=== PATIENT | male | born 2000 | race Caucasian/White ===

== ENCOUNTER 2024-03-26 08:55 | Emergency (ER) | payer OTHER, SELFPAY ==
--- NOTE | 2024-03-26 09:14 | ED.URI ---
HPI - URI/Sore Throat General Chief Complaint: Upper Respiratory Infection Stated Complaint: body aches and throat soreness Time Seen by Provider: 03/26/24 09:07 Source: patient Mode of arrival: ambulatory Limitations: no limitations History of Present Illness HPI Narrative: Mac is a 23-year-old male patient presenting to the clinic today with complaints of sore throat, nasal congestion, and body aches x2 days. He reports no known fever or chills. Denies any chest pain or shortness of breath. is also sick with similar symptoms Related Data Home Medications ?Medication ?Instructions ?Recorded ?Confirmed ?Last Taken ?Type losartan 25 mg tablet mg 03/26/24 Unknown History sertraline 25 mg tablet mg 03/26/24 Unknown History Allergies Allergy/AdvReac Type Severity Reaction Status Date / Time amoxicillin Allergy Intermediate Hives Verified 03/26/24 09:27 Review of Systems Review of Systems: Pertinent positives per HPI. Patient denies any fever, chills, rash, headache, visual changes, dizziness, shortness of breath, chest pain, palpitations, nausea, vomiting, diarrhea, constipation, abdominal pain, or any urinary issues. PMFSH Comments At the time of my signature, I reviewed and agree with the nursing past medical, surgical, social, and family history. There is no relevant family history pertinent to the patient complaint. Exam Narrative: General: Well-developed, well nourished, in no apparent distress Head: Normocephalic, atraumatic Eyes: Pupils equally round and reactive to light bilaterally, EOM intact, sclera and conjunctive clear, no discharge, lids normal Ears: TMs intact and clear, ear canals clear, no drainage, grossly hearing normal. Nose: Nares patent, clear nasal discharge, no inflammation, no sinus tenderness. Mouth: Oropharynx mildly red without lesions or masses, good dentition, MMM. Neck: Supple, trachea midline, no enlargement of anterior or posterior cervical nodes, no thyroid masses or goiter palpable. Cardio: Regular rate and rhythm, s1 and s2 normal, no murmur appreciated. Resp: Clear to auscultation bilaterally anteriorly and posteriorly, no rhonchi, rales, wheezing or rubs Course Course Emergency Course: Portions of this record may have been created with voice recognition software. Level of Care: Express Care Visit Vital Signs Vital signs: Vital Signs Temperature 36.4 C L 03/26/24 09:17 Pulse Rate 72 03/26/24 09:17 Respiratory Rate 18 03/26/24 09:17 Blood Pressure 143/61 H 03/26/24 09:17 Pulse Oximetry 99 03/26/24 09:17 Oxygen Delivery Room Air 03/26/24 09:17 Temperature 36.4 C L 03/26/24 09:17 Pulse Rate 72 03/26/24 09:17 Respiratory Rate 18 03/26/24 09:17 Blood Pressure 143/61 H 03/26/24 09:17 Pulse Oximetry 99 03/26/24 09:17 Oxygen Delivery Room Air 03/26/24 09:17 Vital signs reviewed MDM - URI/Sore Throat MDM Narrative Medical decision making narrative: At the time of visit patient is resting comfortably on the exam table. Patient appears to be nontoxic. Labs: COVID, influenza, and strep test were all performed. All testing was negative. We will send strep for culture. Plan: I suspect patient has URI/pharyngitis/viral syndrome. Supportive measures were discussed with the patient and they voiced understanding discharge instructions and agrees to treatment plan. Return precautions reviewed Differential Diagnosis Differential diagnosis: Likely upper respiratory infection, croup, otitis media, sinusitis, viral infection, bronchitis, influenza and pharyngitis Lab Data Labs: Lab Results 03/26/24 Range/Units 09:33 POC Grp A Strep Screen Negative (Negative) Discharge Plan Discharge Clinical Impression: Viral infection Upper respiratory infection Qualifiers: URI type: unspecified URI Qualified Code(s): J06.9 - Acute upper respiratory infection, unspecified Pharyngitis Qualifiers: Pharyngitis/tonsillitis etiology: unspecified etiology Qualified Code(s): J02.9 - Acute pharyngitis, unspecified Patient Disposition: Home, Self-Care Condition: Stable Instructions: Antibiotic Form, Pharyngitis (ED), Viral Syndrome (ED), Cold Symptoms (ED) Additional Instructions: COVID, influenza, and strep test were all negative in the clinic today. We will send strep for culture if this comes back positive we will contact you in place you on antibiotics at that time. May take DayQuil/NyQuil for cold/flu symptoms Increase fluids and stay well hydrated Tylenol/motrin for pain/fever Flonase and OTC antihistamines as directed Vicks vapor rub to open sinuses Sinus rinses for congestion Cepacol spray, cough drops, throat lozenges, warm tea with honey/lemon, gargle salt water to soothe throat BRAT diet for diarrhea Clear liquids x 24 hours then advance as tolerated for nausea/vomiting Go to the ED if you develop a worsening in your condition- high fever not controlled by Tylenol or Motrin, dehydration, weakness, lethargy, shortness of breath, or chest pain. Follow up with your PCP in 3-5 days if symptoms persist. Patient Language: Persian Prescriptions: No Action losartan 25 mg tablet sertraline 25 mg tablet Follow-up/Referrals: Fredrick,Stacey Acuna APRN [Primary Care Provider] - Time of Disposition: 09:43 Quality NIHSS Nursing Documentation ED NIHSS nursing documentation: reviewed/agree
[2024-03-26 09:17] VITALS: BP 143/61; PULSE 72; RESP 18; TEMP 36.4; O2SAT 99
[2024-03-26 09:35] LABS: EDSTREPNEGPOS1 Negative (Negative)
[2024-03-26 09:42] LABS: EDCOVIDSCREEN Negative (Negative); EDINFLUASCREEN Negative (Negative); EDINFLUBSCREEN Negative (Negative)
--- OUTSIDE RECORDS SUMMARY | 2024-04-02 19:20 | XMS_ITS | Continuity of Care Document ---
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 It does not include entries that were removed or entered in error. Problem Status Onset Date Problem Type Date of Resolution Comments Source Acute nasopharyngitis [common cold] Inactive 09/30/2020 Condition DoD Encounter for examination and observation for other specified reasons Inactive 09/30/2020 Condition DoD Other and unspecified noninfective gastroenteritis and colitis Inactive 08/08/2020 Condition DoD Encounter for other administrative examinations Active 08/08/2020 Condition DoD Anxiety Active 10/22/2013 Condition 0128C-[facility]ND [facility] Elevated blood-pressure reading without diagnosis of hypertension Active 10/22/2013 Condition 0128C-[facility]ND [facility] Constipation Active Condition 0128C-92N D [facility] Lumbar strain Active Condition 0128C-92 ND [facility] Urethral spasm Active Condition 0128C-9 2ND [facility] Medications Combined list of outpatient medications from Department of Defense and Veterans Affairs facilities.Medications provided include 1) outpatient medications from the last 15 months, and 2) patient-reported medications. 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., Route to [facility] Discont inued 01/09/2021 8.1 0128C-9 2ND [facility] azithromyci n 500 mg oral tablet 4 tab(s), Oral, Once, # 4 tab(s), 0 total refill(s ), Physicia n Stop, 10/01/22 1:40:46 PM CDT, 4 tab(s) Oral Once, Pharmacy : [facility] Oral (given by mouth) Complet ed 10/01/2022 4.0 0128C-9 2ND [facility] cetirizine 10 mg tablet See Rx Instruct ions, Oral, # 30 EA, 0 total refill(s ), Hard Stop Oral (given by mouth) Complet ed 09/08/2022 30.0 Ambulat ory Pharmac y Chlorasepti c Max 15-10 mg throat lozenge [15EA] See Rx Instruct ions, # 16 EA, 0 total refill(s ), Hard Stop Complet ed 09/08/2022 16.0 Ambulat ory Pharmac y Cipro 500 mg oral tablet 1 tab(s), Oral, BID, X 30 days, # 60 tab(s), 0 total refill(s ), Acute, 04/13/20 10:51:00 AM [employer], Route to [facility] Oral (given by mouth) Complet ed 04/13/2020 60.0 0128C-9 2ND [facility] Colace 100 mg oral capsule 1 cap(s), Oral, BID, PRN constipa tion, # 100 cap(s), 1 total refill(s ), Maintena nce, 1 cap(s) Oral BID,PRN: constipa tion, Pharmacy : [facility] Oral (given by mouth) Ordered 100.0 0128C-9 2ND [facility] diazePAM 10 mg auto injector 10 mg, IntraMus cular, As Directed , 10 mg, IntraMus cular, As Directed , Administ er autoinje ctor IM as directed by thedenise wilder, # 1 EA, 0 total refill(s ), Maintena nce, Route to [facility] IntraM uscula r (in a muscle ) Discont inued 01/09/2021 1.0 0128C-9 2ND [facility] doxycycline hyclate 100 mg oral capsule 1 cap(s), Oral, BID, For treatmen t of suspecte d chlamydi a infectio n., X 7 days, # 14 cap(s), 0 total refill(s ), Acute, 10/01/22 2:44:00 PM CDT, 1 cap(s) Oral BID,x7 days,Ins tr:For treatmen t of suspecte d chlamydi a infectio n., Pharmacy : [facility] Oral (given by mouth) Discont inued 10/01/2022 14.0 0128C-9 2ND [facility] fluticasone 50 mcg/inh nasal spray [16g] See Rx Instruct ions, Nostril- Both, # 16 g, 0 total refill(s ), Hard Stop Nostri l-Both (into the nose) Complet ed 09/08/2022 16.0 Ambulat ory Pharmac y gentamicin 40 mg/mL injectable solution See Instruct ions, 240 mg IntraMus cular once. RN to administ er, # 6 mL, 0 total refill(s ), Acute, 10/01/22 2:44:00 PM CDT, For in-clini c RN administ ration. Expedite ., 240 mg IntraMus cular once. RN to administ er, Pharmacy : [facility] Discont inued 10/01/2022 6.0 0128C-9 2ND [facility] levoFLOXaci n 500 mg oral tablet 1 tab(s), Oral, every 24 hr, X 10 days, # 10 tab(s), 0 total refill(s ), Acute, 10/11/22 2:45:00 PM CDT, 1 tab(s) Oral every 24 hr,x10 days, Pharmacy : [facility] Oral (given by mouth) Complet ed 10/11/2022 10.0 0128C-9 2ND [facility] lidocaine 5% topical film 1 patch(es ), Topical, Daily, Leave on for up to 12 hours within a 24 hour period (12 hours on, 12 hours off), # 30 patch(es ), 3 total refill(s ), Maintena nce, 1 patch(es ) Topical Daily,In str:Leav e on for up to 12 hours within a 24 hour period (12 hours on, 12 hours off), Pharmacy : [facility] Topica l (on the skin) Discont inued 05/27/2022 30.0 0128C-9 2ND [facility] MiraLax oral powder for reconstitut ion See Instruct ions, Dissolve and drink 1 capful (17g) of powder in 4 to 8 ounces of liquid three times daily until complete bowel emptying occurs, then use as needed for constipa tion., # 510 g, 5 total refill(s ), Maintena nce, Dissolve and drink 1 capful (17g) of powder in 4 to 8 ounces of liquid three times daily until complete bowel emptying occurs, then use as needed for constipa tion., Pharmacy : [facility] Ordered 510.0 0128C-9 2ND [facility] Mucinex ER 600 mg/12 hour tablet See Rx Instruct ions, Oral, # 20 EA, 0 total refill(s ), Hard Stop Oral (given by mouth) Complet ed 09/08/2022 20.0 Ambulat ory Pharmac y naproxen 250 mg oral tablet 2 tab(s), Oral, BID, PRN fever/mi ld pain, X 7 days, # 14 tab(s), 0 total refill(s ), Acute, 10/08/22 1:19:00 PM CDT, 2 tab(s) Oral BID,x7 days,PRN :fever/m ild pain, Pharmacy : [facility] Oral (given by mouth) Complet ed 10/08/2022 14.0 0128C-9 2ND [facility] potassium iodide 130 mg oral tablet 1 tab(s), Oral, Daily, PRN while protecti on is needed, To take only at the discreti on of the theater commande r., X 14 days, # 14 tab(s), 0 total refill(s ), Acute, [facility] Oral (given by mouth) Complet ed 03/28/2020 14.0 0128C-9 2ND [facility] pseudoephed rine 30 mg tablet See Rx Instruct ions, Oral, # 24 EA, 0 total refill(s ), Hard Stop Oral (given by mouth) Complet ed 09/08/2022 24.0 Ambulat ory Pharmac y pyridostigm ine bromide 30 mg tab See Instruct ions, Take as directed under the directio n of the fabian wilder, # 42 EA, 0 total refill(s ), Maintena nce, [facility] Discont inued 01/09/2021 42.0 0128C-9 2ND [facility] Robaxin 500 mg oral tablet 2 tab(s), Oral, QID, X 7 days, # 56 tab(s), 0 total refill(s ), Acute, 2 tab(s) Oral QID,x7 days, Pharmacy : [facility] Oral (given by mouth) Complet ed 04/09/2022 56.0 0128C-9 2ND [facility] Allergies, Adverse Reactions, Alerts Combined list of allergies from Department of Defense and Veterans Affairs facilities. It does not include entries that were removed or entered in error. Substance Category Reaction Severity Reaction type Status Date Reported Comments Source amoxicillin Drug allergy hives Mild Active 0 0128C-[facility]ND [facility] AMOXICILLIN Drug allergy (disorder) active 0 [employer] [place] [place] Immunizations Combined list of available immunizations from the Department of Defense and Veterans Affairs facilities. 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 Status Comments Source COVID Vaccine Pfizer 2020 REFUGIO Bettencourt sharon, right (delt oid) [id number] PFIZER complet ed COVID Vaccine Pfizer 12/30/20 Given 0128C-9 2ND [facility] influenza virus vaccine, inactivated 2020 KARELY [place] sharon, left (delt oid) [id number] 141 [facility] complet [facility] influenza virus vaccine, inactivat ed 12/09/20 Given 0128C-9 2ND [facility] COVID Vaccine Pfizer 2020 KARELY [place] sharon, right (delt oid) [id number] PFIZER complet ed COVID Vaccine Pfizer 12/09/20 Given 0128C-9 2ND [facility] typhoid vaccine, parenteral 2019 BRJOSE LUISPLSHRUTHI [place] sharon, right (delt oid) [id number] sanofi pasteur complet ed typhoid vaccine, parentera l 03/14/20 Given 0128C-9 2ND [facility] anthrax vaccine 2019 BRIANTAIWO [place]court sharon, left (delt oid) [id number] 24 [employer] complet ed anthrax vaccine 03/14/20 Given 0128C-9 2ND [facility] influenza virus vaccine, inactivated 2019 KYLEMYUMIKO [place] sharon, right (delt oid) [id number] 141 [employer] complet ed influenza virus vaccine, inactivat ed 02/14/20 Given 0128C-9 2ND [facility] human papillomaviru s vaccine [address] [place] sharon, left (delt oid) [id number] 165 [employer] Inc complet ed human papilloma virus vaccine 02/14/20 Given 0128C-9 2ND [facility] human papillomaviru s vaccine [address] sharon, left (delt oid) [id number] 165 [employer] complet ed human papilloma virus vaccine 10/04/19 Given 0128C-9 2ND [facility] human papillomaviru s vaccine 2019 KARELY [place]court sharon, left (delt oid) [id number] 165 [employer] complet ed human papilloma virus vaccine 07/19/19 Given 0128C-9 2ND [facility] hepatitis A-hepatitis B vaccine 2019 BRIANPLSHRUTHI [place] sharon, left (delt oid) [id number] 104 [employer] complet ed hepatitis A-hepatit is B vaccine 07/19/19 Given 0128C-9 2ND [facility] influenza, injectable, quadrivalent- pf 2018 [id number] 150 [employer] complet ed influenza , injectabl e, quadrival ent-pf 01/22/19 Given 0128C-9 2ND [facility] hepatitis A-hepatitis B vaccine 2018 [id number] 104 GlaxoSmithKli ne complet ed hepatitis A-hepatit is B vaccine 01/22/19 Given 0128C-9 2ND [facility] hepatitis A-hepatitis B vaccine 2018 [id number] 104 GlaxoSmithKli ne complet ed hepatitis A-hepatit is B vaccine 12/06/18 Given 0128C-9 2ND [facility] adenovirus vaccine, live 2018 [id number] 143 [employer]eva [employer] ls complet ed adenoviru s vaccine, live 12/01/18 Given 0128C-9 2ND [facility] tetanus, diphtheria, acellular pertu is 2018 [id number] 115 GlaxoSmithKli ne complet ed tetanus, diphtheri a, acellular pertussis 12/01/18 Given 0128C-9 2ND [facility] meningococcal A,C,Y,W-135 (MCV4P) 2018 [id number] 114 sanofi pasteur complet ed meningoco ccal A,C,Y,W-1 35 (MCV4P) 12/01/18 Given 0128C-9 2ND [facility] poliovirus vaccine, inactivated 2018 [id number] sanofi pasteur complet ed polioviru s vaccine, inactivat ed 12/01/18 Given 0128C-9 2ND [facility] Results Combined list of recent chemistry, hematology and other laboratory results from Department of Defense and Veterans Affairs, ranging from 15 months to all on record, depending upon the facility. Order Name Results Value Reference Range Date Interpretation Specimen Comments Source Urinalysi s UA WBC 0-1 10/01 0128C-9 2ND [facility] Urinalysi s UA RBC 0-1 10/01 0128C-9 2ND [facility] Urinalysi s UA Bacteria Trace *ABN* (10/01/22 12:15 PM) 10/01 A 0128C-9 2ND [facility] Urinalysi s UA Mucous Neg (10/01/22 12:15 PM) 10/01 N 0128C-9 2ND [facility] Infectiou s Disease GC Scrn Not Detected (10/01/22 12:15 PM) 10/01 N 0128C-9 2ND [facility] Infectiou s Disease Chlamydia Scrn Not Detected (10/01/22 12:15 PM) 10/01 N 0128C-9 2ND [facility] Urinalysi s UA Clarity Clear (10/01/22 12:15 PM) 10/01 N 0128C-9 2ND [facility] Urinalysi s UA Appear Clear (10/01/22 12:15 PM) 10/01 N 0128C-9 2ND [facility] Urinalysi s UA Bili Negative (10/01/22 12:15 PM) 10/01 N 0128C-9 2ND [facility] Urinalysi s UA Blood Trace-In tact *ABN* (10/01/22 12:15 PM) 10/01 A 0128C-9 2ND [facility] Urinalysi s UA Color Yellow (10/01/22 12:15 PM) 10/01 N 0128C-9 2ND [facility] Urinalysi s UA Glucose Negative mg/dL 10/01 N 0128C-9 2ND MED [facility] Urinalysi s UA Ketones Negative mg/dL 10/01 N 0128C-9 2ND [facility] Urinalysi s UA Leuk Esterase Negative (10/01/22 12:15 PM) 10/01 N 0128C-9 2ND [facility] Urinalysi s UA Nitrite Negative (10/01/22 12:15 PM) 10/01 N 0128C-9 2ND [facility] Urinalysi s UA pH 6.5 4.6 - 8.0 10/01 N 0128C-9 2ND [facility] Urinalysi s UA Protein Negative mg/dL 10/01 N 0128C-9 2ND [facility] Urinalysi s UA Spec Dougherty 1.010 1.006 - 1.029 10/01 N 0128C-9 2ND MED [facility] Urinalysi s UA Urobilinoge n 0.2 E.U./dL 10/01 N 0128C-9 2ND MED [facility] Urinalysi s UA Micro Ind? Indicate d *ABN* (10/01/22 12:15 PM) 10/01 A 0128C-9 2ND MED [facility] Urinalysi s UA WBC 0-1 (09/17/22 2:04 PM) 09/17 N 0128C-9 2ND [facility] Urinalysi s UA RBC 0-1 09/17 0128C-9 2ND MED [facility] Urinalysi s UA Bacteria Neg (09/17/22 2:04 PM) 09/17 N 0128C-9 2ND MED [facility] Urinalysi s UA Mucous Neg (09/17/22 2:04 PM) 09/17 N 0128C-9 2ND MED [facility] Urinalysi s UA Clarity Clear (09/17/22 2:04 PM) 09/17 N 0128C-9 2ND MED [facility] Urinalysi s UA Appear Clear (09/17/22 2:04 PM) 09/17 N 0128C-9 2ND [facility] Urinalysi s UA Bili Negative (09/17/22 2:04 PM) 09/17 N 0128C-9 2ND [facility] Urinalysi s UA Blood Trace-Ly sed *ABN* (09/17/22 2:04 PM) 09/17 A 0128C-9 2ND [facility] Urinalysi s UA Color Yellow (09/17/22 2:04 PM) 09/17 N 0128C-9 2ND [facility] Urinalysi s UA Glucose Negative mg/dL 09/17 N 0128C-9 2ND MED [facility] Urinalysi s UA Ketones 15 mg/dL 09/17 A 0128C-[address] [place] [address] [facility] Urinalysi s UA Leuk Esterase Negative (09/17/22 2:04 PM) 09/17 N 0128C-[address] [place] [address] [facility] Urinalysi s UA Nitrite Negative (09/17/22 2:04 PM) 09/17 N 0128C-[address] [place] [address] [facility] Urinalysi s UA pH 7.0 4.6 - 8.0 09/17 N 0128C-[address] [place] [address] [facility] Urinalysi s UA Protein Negative mg/dL 09/17 N 0128C-[address] [place] [address] [facility] Urinalysi s UA Spec Dougherty 1.015 1.006 - 1.029 09/17 N 0128C-[address] [place] [address] [facility] Urinalysi s UA Urobilinoge n 0.2 E.U./dL 09/17 N 0128C-[address] [place] [address] [facility] Urinalysi s UA Micro Ind? Indicate d *ABN* (09/17/22 2:04 PM) 09/17 A 0128C-[address] [place] [address] [facility] Infectiou s Disease HIV-1/O/2.E PI NON-REAC TIVE 04/06 Result Comment: INTERPRETAT ION(S): This method is a screening procedure for the detection of HIV p24 Antigen and Antibodies to HIV-1, including Group O, and/or HIV-2. NON-REACTIV E: HIV-1 antigen and HIV-1 / HIV-2 antibodies were not detected. No laboratory evidence of HIV infection. A negative test result does not exclude the possibility of exposure to or infection with HIV. HIV antibodies and/or p24 antigen may be undetectabl e in some stages of the infection and in some clinical conditions. If acute HIV infection is suspected, consider submitting another specimen to a reference laboratory for HIV-1 RNA. SCREEN REACTIVE - CONFIRMATIO N TO FOLLOW: Possible presence of HIV-1 antibodies, HIV-2 antibodies and/or HIV-1 p24 antigen. Specimen will reflex to the confirmatio n testing that fulfills the Center for Disease Control and Prevention' s HIV diagnostic algorithm. Refer to [facility] Lab Guide for additional information : [email or web address]/ [email or web address]/EPIL [email or web address] [email or web address] x Testing performed by [facility] jasper vasquez. Performed by: Epidemiolog y Laboratory Service [employer] [facility] [address] [place] [address], [place] [address] 0128C-[address] [place] [address] [facility] Miscellan eous Sendouts Repository Sample.EPI RECEIVED 04/06 Result Comment: INTERPRETAT ION(S): Performed by: Epidemiolog y Laboratory Service [facility] [address] [place] [address], [place] [address] 0128C-[address] [place] [address] [facility] Infectiou s Disease Strep A, Rapid Neg (02/25/22 3:14 PM) 02/25 N 0128C-[address] [place] [address] [facility] Molecular Infectiou s Disease SARS-CoV-2 PCR Negative 6 (12/08/20 10:46 AM) 12/08 N Interpretiv e Data: This test is not yet approved or cleared by the [place] FDA. When there are no FDA-approve d or cleared tests available, and other criteria are met, FDA can make tests available under an emergency access mechanism called an Emergency Use Authorizati on (EUA). The EUA for this test is supported by the Loom Setter Fourdrinier of Health and Human Service s (HHS s ) declaration that circumstanc es exist to justify the emergency use of in vitro diagnostics for the detection and/or diagnosis of the virus that causes COVID-19. This EUA will remain in effect (meaning this test can be used) for the duration of the COVID-19 declaration justifying emergency of IVDs, unless it is terminated or revoked by FDA (after which the test may no longer be used). 0128C-9 2ND MED [facility] Molecular Infectiou s Disease Reason for Test? Screenin g (12/08/20 10:46 AM) 12/08 N 0128C-[address] [place] [address] GRP-ALYSIA RCHILD Miscellan eous Sendouts Repository Sample.EPI RECEIVED 12/08 Result Comment: INTERPRETAT ION(S): Performed by: Epidemiolog y Laboratory Service [facility] [address] [place] [address], [place] [address] 0128C-9 2ND [facility] GRP-ALYSIA RCHILD Molecular Infectiou s Disease Reason for Test? Diagnosi s (05/19/20 8:12 AM) 05/19 N -[address] [place] [address] GRP-[facility] Molecular Infectiou s Disease SARS-CoV-2 PCR Negative 7 (05/19/20 8:12 AM) 05/19 N Interpretiv e Data: This test is not yet approved or cleared by the [place] FDA. When there are no FDA-approve d or cleared tests available, and other criteria are met, FDA can make tests available under an emergency access mechanism called an Emergency Use Authorizati on (EUA). The EUA for this test is supported by the [employer]ier of Health and Human Service s (HHS s ) declaration that circumstanc es exist to justify the emergency use of in vitro diagnostics for the detection and/or diagnosis of the virus that causes COVID-19. This EUA will remain in effect (meaning this test can be used) for the duration of the COVID-19 declaration justifying emergency of IVDs, unless it is terminated or revoked by FDA (after which the test may no longer be used). 0128C-9 2ND [facility] GRP-ALYSIA RCHILD Infectiou s Disease HIV-1/O/2.E PI NON-REAC TIVE 03/14 Result Comment: INTERPRETAT ION(S): This method is a screening procedure for the detection of HIV p24 Antigen and Antibodies to HIV-1, including Group O, and/or HIV-2. NON-REACTIV E: HIV-1 antigen and HIV-1 / HIV-2 antibodies were not detected. No laboratory evidence of HIV infection. A negative test results does not exclude the possibility of exposure to or infection with HIV. HIV antibodies and/or p24 antigen may be undetectabl e in some stages of the infection and in some clinical conditions. If acute HIV infection is suspected, consider submitting another specimen to a reference laboratory for HIV-1 RNA. SCREEN REACTIVE - CONFIRMATIO N TO FOLLOW: Possible presence of HIV-1 antibodies, HIV-2 antibodies and/or HIV-1 p24 antigen. Specimen will reflex to the confirmatio n testing that fulfills the Center for Disease Control and Prevention' s HIV diagnostic algorithm. Refer to [facility] Lab Guide for additional information : [email or web address] [email or web address]/lab _[email or web address] Testing performed by Nova vasquez. Performed by: Epidemiolog y Laboratory Service [facility] [address] [place] [address], [place] [address] 0128C-9 2ND [facility] GRP-ALYSIA RCHILD Miscellsamir eous Sendouts Repository Sample.EPI RECEIVED 03/14 Result Comment: INTERPRETAT ION(S): Performed by: Epidemiolog y Laboratory Service [facility] [address] [place] [address], [place] [address] 0128C-9 2ND MED [facility] Vital Signs Combined list of inpatient and outpatient Vital Signs from Department of Defense and Veterans Affairs, ranging from 12 months to all on record, depending upon the facility. Vital Sign Value Date Comments Source Systolic Blood Pressure 138mm[Hg] 03/14/2020 16:52:00 0128C-92ND [facility] Diastolic Blood Pressure 85mm[Hg] 03/14/2020 16:52:00 0128C-92ND [facility] Mean Arterial Pressure, Calc 103mm[Hg] 03/14/2020 16:52:00 0128C-92ND M [facility] Peripheral Pulse Rate 84bpm 03/14/2020 16:52:00 0128C-92ND MED [facility] Respiratory Rate 16br/min 03/14/2020 16:52:00 0128C-92ND [facility] Systolic Blood Pressure 119mm[Hg] 09/17/2022 20:13:00 0128C-92ND [facility] Diastolic Blood Pressure 75mm[Hg] 09/17/2022 20:13:00 0128C-92ND [facility] Mean Arterial Pressure, Calc 90mm[Hg] 09/17/2022 20:13:00 0128C-92ND M ED [facility] Peripheral Pulse Rate 84bpm 09/17/2022 20:13:00 0128C-92ND [facility] Respiratory Rate 17br/min 09/17/2022 20:13:00 0128C-92ND [facility] Temperature Oral 37Cel 09/17/2022 20:13:00 0128C-92ND MED [facility] BP Site 09/17/2022 20:13:00 0128C -92ND [facility] Blood Pressure Manual 09/17/2022 20:13:00 0128C-92ND [facility] Systolic Blood Pressure 128mm[Hg] 04/02/2022 22:00:00 0128C-92ND [facility] Diastolic Blood Pressure 86mm[Hg] 04/02/2022 22:00:00 0128C-92ND [facility] Mean Arterial Pressure, Calc 100mm[Hg] 04/02/2022 22:00:00 0128C-92ND M ED [facility] Peripheral Pulse Rate 82bpm 04/02/2022 22:00:00 0128C-92ND [facility] Respiratory Rate 16br/min 04/02/2022 22:00:00 0128C-92ND MED [facility] BP Site 04/02/2022 22:00:00 0128C -92ND [facility] Blood Pressure Manual 04/02/2022 22:00:00 0128C-92ND [facility] BP Site 09/14/2022 21:46:00 0128C -92ND [facility] Blood Pressure Manual 09/14/2022 21:46:00 0128C-92ND [facility] Systolic Blood Pressure 131mm[Hg] 09/14/2022 21:46:00 0128C-92ND [facility] Diastolic Blood Pressure 87mm[Hg] 09/14/2022 21:46:00 0128C-92ND [facility] Mean Arterial Pressure, Calc 102mm[Hg] 09/14/2022 21:46:00 0128C-92ND M ED [facility] Peripheral Pulse Rate 87bpm 09/14/2022 21:46:00 0128C-92ND [facility] Respiratory Rate 14br/min 09/14/2022 21:46:00 0128C-92ND MED [facility] Temperature Oral 36.8Cel 09/14/2022 21:46:00 0128C-92ND [facility] Peripheral Pulse Rate 72bpm 02/25/2022 22:00:00 0128C-92ND MED [facility] Systolic Blood Pressure 132mm[Hg] 02/25/2022 22:00:00 0128C-92ND [facility] Diastolic Blood Pressure 87mm[Hg] 02/25/2022 22:00:00 0128C-92ND MED [facility] Temperature Oral 37Cel 02/25/2022 22:00:00 0128C-92ND MED [facility] Mean Arterial Pressure, Calc 102mm[Hg] 02/25/2022 22:00:00 0128C-92ND M ED GRP-[facility] Systolic Blood Pressure 133mm[Hg] 10/01/2022 17:44:00 0128C-92ND MED [facility] Diastolic Blood Pressure 89mm[Hg] 10/01/2022 17:44:00 0128C-92ND MED [facility] Mean Arterial Pressure, Calc 104mm[Hg] 10/01/2022 17:44:00 0128C-92ND M ED [facility] Peripheral Pulse Rate 86bpm 10/01/2022 17:44:00 0128C-92ND MED [facility] Encounters Combined list of: 1) Encounters from Department of Veterans Affairs facilities going back up to thelast 18 months. 2) Encounters from the Department of Defense facilities going back up to 280 months. Location Location Details Encounter Type Encounter Number Reason For Visit Attending Provider ADM Date DC Date Status Disposition Source [facility] [place] [address](Hea ring Conservat ion, BMT) OUTPATIENT [id number] KAMILLA PINO 12/05 Released w/o Limitations [facility] [place] [address](H earing Conserv ation, BMT) [facility]UTIST[facility] [place] [address]([facility]) OUTPATIENT [id number] Notes Entered by: MIL PARK 06 Dec 2018 1159 ------- ------- ------- ------- -- Strep Prophyl axis, BOB PARK 12/06 Released w/o Limitations [facility] [place] [address]([facility] d) Theater Facility OUTPATIENT [id number] Theater Provider 08/08 Immediate Referral Theater Facilit [facility] Theater Facility OUTPATIENT [id number] Theater Provider 08/08 Released w/o Limitations Theater Facilit [facility] Theater Facility OUTPATIENT [id number] Theater Provider 08/27 Released w/o Limitations Theater Fac[facility] y Theater Facility OUTPATIENT [id number] Theater Provider 09/30 Sick at Home/Quarter s Theater Facilit y Theater Facility OUTPATIENT [id number] Theater Provider 09/30 Released w/o Limitations Theater Facilit y Procedures Combined list of: 1) Procedures from Department of Veterans Affairs facilities going back up to thelast 18 months, not all VA non-surgical procedures are included; 2) All procedures from the Department of Defense facilities. Procedure Procedure Type Code Date Perfomer Comments Sourc e No data available for this section MED GRP-[employer] ILD Threshold Audiogram (Pure Tone) Threshold Audiogram (Pure Tone) [address]01 KAMILLA PINO [facility] Physician Supervised Injection Intramuscular Antibiotic Physician Supervised Injection Intramuscular Antibiotic 51740 BOB PARK [facility] THERAPEUTIC, PROPHYLACTIC, OR DIAGNOSTIC INJECTION (SPECIFY SUBSTANCE OR DRUG); SUBCUTANEOUS OR INTRAMUSCULAR [facility] PURE TONE AUDIOMETRY (THRESHOLD); AIR ONLY 9 [facility] Social History Combined list of available smoking, tobacco, and other social history from Department of Defense and Veterans Affairs facilities. Social History Type Response Date Comment Sourc e Smoking Status Never (less than 100 in lifetime) 11/15/2019- MED [facility] Male 05/15/2019 [facility] Sexual Orientation 8ND [facility] Gender identity 0128C-92N D [facility] This section is an empty social history section. [facility] Assessment and Plan Combined list of future care activities from Department of Defense and Veterans Affairs facilities (e.g., assessment and plan notes, appointments, orders, and referrals). Additional future care activities may be listed in the Plan of Care section. Result Assessment and Plan Date Source Assessment and Plan Extracted from:Title : Office Clinic Note- Chronic constipation; epididymitis (acute) Author: STEVIE FLETCHER Date: 10/01/22 1.?Constipation Chronic, uncontrolled despite bowel regimen. Will refer to GI for further eval/treatment. Ordered: doxycycline(doxycycline hyclate 100 mg oral capsule), 1 cap(s), Oral, BID, For treatment of suspected chlamydia infection., X 7 days, # 14 cap(s), 0 total refill(s), Acute, 10/08/2022, 1 cap(s) Oral BID,x7 days,Instr:For treatment of suspected chlamydia infection., Pharmacy: [facility] [Not fille GC and Chlamydia Screen Urinalysis with Culture if Indicated Referral Request 2.0 ? 2.?Epididymitis Acute, uncontrolled.?Unclear if related to his constipation, that would be rather unusual and suggest more significant GI pathology than suspected. Repeat UA/UCx and will also test for GC/CT. Empiric treatment w/NSAIDs, abx ordered today. 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 As such I am hesitant to administer cephalosporin based regimen. Unfortunately our clinic does not stock gentamicin for alternative treatment.?Given patient is adamant no sex outside of monogamous relationship, STI risk is likely low despite high STI prevalence in his demographic category. As such, we will lean more towards empiric coverage of enteric pathogens w/levofloxacin. If GC/CT results come back positive we will have to change therapy. ED precautions for worsening sx over the upcoming weekend discussed. Ordered: GC and Chlamydia Screen Urinalysis with Culture if Indicated ? Orders: naproxen(naproxen 250 mg oral tablet), 2 tab(s), Oral, BID, PRN fever/mild pain, X 7 days, # 14 tab(s), 0 total refill(s), Acute, 10/08/2022, 2 tab(s) Oral BID,x7 days,PRN:fever/mild pain, [facility] [Not filled] A total of?approximately 45?minutes were spent related to this encounter on day of service including medical history and record review; ordering of medications, tests, and procedures; face to face time in communication and counseling with patient, family and/or caregivers; and documentation in the electronic health record and other records as applicable. ? //SIGNED// Stevie Fletcher MD, IMAN, [facility] Family Medicine Physician Juice Tester, [facility], [address] [place], [place] [phone] ? Extracted from:Title: Office Clinic Note- Constipation Author: STEVIE FLETCHER Date: 09/17/22 1.?Constipation Chronic, new diagnosis, uncontrolled. He has a non-focal, unremarkable abdominal exam. ?We will initiate a miralax bowel clean-out regimen- TID dosing until bowels fully evacuated, then continue PRN for maintenance. Rx for Colace prescribed as well. ? We discussed the need, long-term, for adequate fluid intake and increased fiber intake- ideally through increased fiber in diet (whole grains, fruits, veggies) but OK to use a daily powdered fiber supplement as well. ? He is not in acute pain and the character of the pain is not suggestive of nephrolithiasis but we will obtain UA to ensure no hematuria is present that would suggest pathology. ? ? ? Ordered: docusate(Colace 100 mg oral capsule), 1 cap(s), Oral, BID, PRN constipation, # 100 cap(s), 1 total refill(s), Maintenance, 1 cap(s) Oral BID,PRN:constipation, Pharmacy: [facility] polyethylene glycol 3350(MiraLax oral powder for reconstitution), See Instructions, Dissolve and drink 1 capful (17g) of powder in 4 to 8 ounces of liquid three times daily until complete bowel emptying occurs, then use as needed for constipation., # 510 g, 5 total refill(s), Maintenance, Dissolve and drink 1 capful... Urinalysis with Culture if Indicated ? Not on PRP or flying status. No indication for new or modified FR/DR/MR at this time.? ? ? Return precautions discussed. Patient expressed understanding and intent to comply. All questions answered. Patient agreed to notification regarding results of labs, imaging, other diagnostic testing via the [facility] [employer] Patient Portal. ? ? //SIGNED// Stevie Fletcher MD, IMAN, [employer] Family Medicine Physician Juice Tester, [facility], [address] [place], [place] [phone] ? Extracted from:Title: SHPE/MHA Author: LEXUS HAIDER PA Date: 09/14/22 1.?Encounter for other specified special examinations -?No depression, anxiety, SI, HI, substance abuse, or concerns. - Reviewed SHPE with patient, all health issues discussed, no concerning issues at this time which would require immediate attention or prevent member from separation? - Member clear for separation from primary care standpoint? -? ? ?[facility] Form completed ? - F/u PRN? 2.?Encounter for other general examination Reviewed [facility] section and reviewed responses and new questions asked without need for immediate referral or direction to ED. ?No new specific concerns identified in past medical or family history when compared to the PHAQ. ?All information was updated?in MHA?as needed.? Completed provider portion of the A, any abnormalities were noted in the Provider Comments" section below.??Member is not on PRP or Flying status. ?No indication for new or modified DR/MR/FR at this time.? ? ? Verified full name and prior to discussion of pt information? ? Confirmed Member is not Fly, PRP, or other specified Special duty ? ? FITNESS RESTRICTIONS:?[X]?None;?[ ]?A 469 has been created with new fitness restrictions;?[ ]? An existing 469 with fitness restrictions has been reviewed and will remain in effect? ? DUTY RESTRICTIONS:? ?[X]? None, fully qualified in AFMD;?[ ]? A 469 has been created with new duty restrictions;?[ ]? An existing 469 with duty restrictions has been reviewed and will remain in effect? ? MOBILITY RESTRICTIONS:? ?[X]? None;?[ ]? A 469 has been created with new mobility restrictions;?[ ]? An existing 469 with mobility restrictions has been reviewed and will remain in effect;??[ ]? Member advised to complete due/overdue IMR item(s) ? RETENTION STANDARDS:? ?[X]? None;?[ ]? Code 31 (Illness or injury expected to be resolved within 31-365 days);?[ ]? Referred to [facility], for potential Code 37 and medical defect/condition requiring IRILO or MEB, IAW MARIA GUADALUPE 48-198)?[ ]? Code 81 ; Discussed this with patient who indicated understanding ? DO NOT ARM NOTIFICATION: (Applicable to [employer], when a medication or medical condition could impair their ability to carry/use a weapon)? ?[X]? None;?[ ]? A Do Not Arm Notification was made via phone call to the [employer] ([phone]) and the Arming Use of Force (AUoF) module in [facility] was completed, and a duty restriction was issued via an AF form 468, with the statement Do Not Arm in the comments section Total time spent from by Provider on floor/phone time, record review, PE, and education and plan: ? 30min ? CAPT LEXUS HAIDER PA-C [facility] PCM [id number] [employer], [place] ? 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 Patient scheduled with PCM on September 17 @ 1340. -Red flags signs and symptoms discussed to seek emergency care to include severe pain, vomiting blood, or? Bloody, black, or tarry bowel movements. -Advised patient to return call to clinic for any questions or concerns. -Instructed patient to call Nurse Advise Line to speak with a nurse after hours or to get after hours Urgent Care referral at [phone] ? Patient verbalized understanding and agreeable with plan of care.? Dr. Fletcher, please review. Thank you. ? Talk time?12 minutes ? ? Extracted from:Title: Virtual PHA/MHA Author: MARU ALVARENGA NP Date: 05/27/22 1.?Encounter for other general examination Member not present for this encounter. Reviewed [id number]. No new specific concerns identified in past medical or family history when compared to the PHAQ. All information was updated to the e2766 as needed. Electronic records reviewed to include member s summary and roadway technician's Record Review section of PHAQ which is attached to this note. Completed provider portion of the PHAQ, any abnormalities were noted in the Provider Comments section below. Not on PRP or flying status. No indication for new or modified DR/MR/FR at this time. ? Virtual MHA reviewed with SM by phone after confirming his identity by 2 patient identifiers ? -?SM does not endorse adjustment difficulties, sleep disturbance, depression, PTSD, alcohol/substance misuse, critical stressors, emotional problems or SI/HI -?his virtual MSE is WNL - currently rates overall health as very good; reports adequate sleep and regular exercise -?SM expressed awareness of available mental health resources that he can access as needed -?no further action is needed at this time ? ASIMS:?Yellow - Dental (scheduled) Preventative Screening Recommendations IAW USPSTF have been accomplished. Follow up?PRN. ? Maru Alvarenga, CTR, FREIGHT FORWARDER [address]? [employer], [place]?Diagnosis: ?1. ?Encounter for other general examination ?Comment:?Ordered:??Brief Comm Tech-Based Svc, Virt, Phys, Est Pt; 5-10 Min Med Dis G2; 05/27/2022 07:30:00 PST ? Administration,Pt-Foc [facility] [id number]; 05/27/2022 07:30:00 PST ?Diagnosis: ?2. ?Exposure to environmental pollution, occupational ?Comment:?Ordered:??Brief Comm Tech-Based Svc, Virt, Phys, Est Pt; 5-10 Min Med Dis G2; 05/27/2022 07:30:00 PST ? Administration,Pt-Foc [facility] [id number]; 05/27/2022 07:30:00 PST ?Diagnosis: ?3. 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 Administration,Pt-Foc [facility] [id number]; 05/27/2022 07:30:00 PST ? End of Orders ? ANNUAL PERIODIC HEALTH ASSESSMENT ? I. 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 Last Name: NILDA 2. First Name: MAC 3. Middle Name: SANDOR 4. Assessment Date: 5. : 6. Age: 21 7. Gender: M 8. DoD ID Number: [id number] 9. Service Branch: [employer] 10. 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 Status: Active Duty 12. 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 Unit Name: [address] [employer] 14. Duty Station/Location: [place] 15. UIC: [id number] 16. Is this your first Periodic Health Assessment (PHA)?: N 17. Are you enrolled in a secure messaging system with your health care provider?:? U ? 18. Current contact information: Preferred Method: Email 1 DSN: Day Time Phone: [phone] Night Time Phone: Email 1: [email or web address] Email 2: Address: [address] City: [place] State: [place] Zip Code: [address] ? 19. Point of contact who can always reach you: Name: MSgt Conway Phone 1: [phone] Phone 2: EMAIL: [email or web address] Address: City: State: Zip Code: ? II. DEPLOYMENT INFORMATION (DEP) 1. [ 1 ] Total number of deployments in the PAST 5 YEARS 2. [ [place] ] Primary country of last deployment 3. [ ] Date departed theater 4. [ N ] Are you going to deploy within the NEXT 120 DAYS? ? III. OCCUPATIONAL INFORMATION (OCC) 1? 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 [ No ] Does your specialty require an operational duty physical exam? 4. [ Yes ] Are you currently enrolled in a medical surveillance/occupational health program?:? Yes ? IV. MEDICAL CONDITIONS (JAYDEN): 1. Since your last PHA, have you experienced any of the following health conditions, and if so, what is your status? [ Persistent or recurring noises in head or ears ] Conditions with no medical care ? ?? [? ] Conditions with medical care, but no longer under treatment ? ?? [? ] Conditions with medical care, and NOW under treatment 2. Since your last PHA, have you experienced any of the following health conditions, and if so, what is your status? [? ] Conditions with no medical care ? ?? [ Recurring muscle, joint, or low back pain, Kidney problems ] Conditions with medical care, but no longer under treatment ? ?? [? ] Conditions with medical care, and NOW under treatment 3. For any condition marked YES in question 1 or 2, are you currently on any profile or limited duty for that condition?[? ] Conditions 4. [ Yes ] Have you been based or stationed at a location where an open burn pit was used? 5. [ Yes ] Have you been exposed to toxic airborne chemicals or other airborne contaminants? 6. [ No ] Are you enrolled in the Airborne Hazards and Open Burn Pit Registry? 7. [ Y ] Federal law requires eligible members to enroll in the Airborne Hazards and Open Burn Pit Registry or opt-out.? If eligble, choose one: 8. Have you had any surgery since your last PHA?: No 10.a. [ No ] Since your last PHA, has a health care provider recommended surgery(s) that you have not had? 11.a. [ No ] Do you currently require hearing aids, special medical supplies, CPAP, adaptive equipment, assistive technology devices, and/or other special accommodations? 12.a. [ No ] Do you have a waiver or profile for any part of your Service's physical fitness test? 13.a. [ No ] Do you have any problems wearing a gas mask, ballistic helmet, body armor, and/or chemical/biological protective garments? 14.a. [ No ] Have you ever been told by a health care provider that you SHOULD NOT receive an immunization for medical reasons? 15.a. [ No ] Do you have a permanent profile or an Assignment Limitation Code C? 16.a. [ No ] Are you on a temporary profile or limited duty? 17. [ 0 ] During the PAST 2 years, how many times have you been placed on a temporary profile or on limited duty? ? V. INDIVIDUAL MEDICAL READINESS (IMR) 1. [ Yes ] Do you have any allergies? 2. [ Amoxicill ] Allergy List 3. [ Yes and Current ] Do you have red medical warning dog tags? 4. [ No ] Do you wear corrective lenses? ? . BEHAVIORAL HEALTH (MHA) 1. a. [ None? ] Over the PAST MONTH, what major life stressors have you experienced that are a cause of significant concern or make it difficult for you to do your work, take care of things at home, or get along with other people (for example, serious conflicts with others, relationship problems, or a legal, disciplinary or financial problem)? ? 2. a. [ No? ] In the PAST YEAR did you receive care for any mental health condition or concern such as, but not limited to post traumatic stress disorder (PTSD), depression, anxiety disorder, alcohol abuse or substance abuse? ? 3. [ None? ] What prescription or over-the counter medications (including herbals/supplements) for sleep, pain, combat stress, or a mental health problem are you CURRENTLY taking? ? 4. a. [ No ] In the past 12 months, have you gambled? 5. a. [ Never ] How often do you have a drink containing alcohol? ? 6. Have you ever had any experience that was so frightening, horrible, or upsetting that in the PAST MONTH, you: 6. a. [ No ] Have had nightmares about it or thought about it when you did not want to? 6. b. [ No ] Tried hard not to think about it or went out of your way to avoid situations that remind you of it? 6. c. [ No ] Were constantly on guard, watchful or easily startled? 6. d. [ No ] [place] numb or detached from others, activities, or your surroundings? 6. e. [ Not answered ] [place] guilt or unable to stop blaming yourself or others for the event(s) or any problems the event(s) may have caused? ? 7. Over the LAST 2 WEEKS, how often have you been bothered by the following problems? 7. a. [ Not at all ] Little interest or pleasure in doing things 7. b. [ Not at all ] Feeling down, depressed, or hopeless ? 8. [ No ] Would you like to schedule an appointment with a health care provider to discuss any health concern(s)? 9. [ No ] Are you interested in receiving information or assistance for a stress, emotional or alcohol concern? 10. [ No ] Are you interested in receiving assistance for a family or relationship concern? 11. [ No ] Would you like to schedule a visit with a financial analyst accountant, mental health care provider, or a community support counselor? ? VII. FAMILY HISTORY AND LIFESTYLE (LIF) 1. [ Excellent ] Overall, how would you rate your health during the PAST MONTH? 2. [ None/Don't Know ] Member indicates that family members have the following problems 6. [ Yes ] I participate in moderate intensity physical activites at least 2.5 hours, or a combination of moderate and vigorous aerobic activites, for at least 75 minutes per week. 7. In a typical week, I do physical activities specifically designed to STRENGTHEN my muscles: ? ?? [ 4 ] Day(s) per week 8. [ Tylenol ] What prescriptions or wpyw-mgw-aajyxnn medications are you CURRENTLY taking for health problems on a ROUTINE BASIS? 9. Which of the following products have you taken since your last PHA: ? ? None of the above 11. Think about the PAST 30 DAYS. How often did you eat/drink the following foods/beverages? ? ? [ 3 to 6 servings per week ] Fruits ? ? [ 3 to 6 servings per week ] Vegetables ? ? [ 3 to 6 servings per week ] Starchy Vegetables ? ? [ 3 to 6 servings per week ] Whole Grains ? ? [ 3 to 6 servings per week ] Dairy and Calcium Containing Foods ? ? [ Rarely or Never ] Fish ? ? [ 3 or more servings per day ] Lean Protein ? ? [ 3 to 6 servings per week ] Sugar-Sweetened Beverages ] Have you had a cholesterol check by a health career resource technician within the PAST 5 YEARS? 13.a. In the PAST 30 DAYS, which of the following products have you used on at least one day? ? ? None 15. Which of the following best describes your past tobacco use? I used tobacco in the past, but quit in 2021 16. [ No ] Are you regularly exposed to secondhand smoke? 17. [ 5 to less than 7 hours ] During the LAST 2 WEEKS, how many hours of sleep did you get on most days? 18. [ No ] During the LAST 2 WEEKS, have you felt impaired or unable to adequately perform due to sleepiness or poor quality sleep? 19. [ No ] Have you had any unexplained weight loss or gain since your last PHA? 20. Member is not at risk for sexually transmitted infections. 22. Since your last PHA, what, if anything, have you and your partner used to keep from getting ? [ IUD, control pills, Condoms ] I am actively taking steps to prevent , including 23. [ No ] In the last year, have you or your partner had a scare, where you were not trying to get but were worried enough to use a home test? ? X. OTHER MEDICAL (OTH) 1. [ 0 ] Rate the amount of pain you have had, on average, over the PAST 24 HOURS 3. [ Yes ] Since your last PHA, have you received care or treatment for any medical and/or mental health condition(s) from a civilian or non- facility? 4. List the condition(s) treated and where the care was provided: ? ? Conditions: Kidney ache ? ? Where: [facility] 5. Member acknowledged responsibility for reporting health issues. 7. [ No ] Woud you like to schedule an appointment with a health care provider to discuss any health concerns? ? XI. SEPARATION AND CORRECTION 1. [ Yes ] Are you planning to separate or retire within the next year from Active Duty or [place] Duty (activated for greater than 30 continuous days) OR do you intend to file a claim for disability compensation with the [employer]? ? PART B. RECORD REVIEW AND RECOMMENDATIONS I. RECORD REVIEWER INFORMATION 1. Last Name: JESUS 2. First Name: NEO 3. Middle Name: 4. Service Branch: [employer] 5. Status: Active Duty 6. 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 EMAIL: [email or web address] 8. Facility: MEDICAL 9. Unit: [address] [place] [address] 10. Address: [place] 11. State: [place] 12. Zip Code: [address] 13. 14. Date Record Review: ? II. MEDICAL SCREENING 1. [ ] Date of produce production team member's most recent PHA 2. [ 5 feet 10 inches? ?Date: ] produce production team member's most recently documented height 3. [ 187 pounds? Date: ] produce production team member's most recently documented weight 4. [ 128/86? Date: ] produce production team member's most recently documented blood pressure reading 5. [ No ] Does the produce production team member have a history of abnormal blood pressure since their last PHA? 6. [ Yes ] Does the produce production team member have a laboratory test of sickle cell trait documented in their permanent medical record? 7. [ No Cholesterol Test Documented ] What is the date of the produce production team member's most recently documented cholesterol test? 9. [ lidocaine topical? ]? List of produce production team member's active medications listed in their permanent medical record 10. [ Yes: lidocaine topical tylenol ] Is there a discrepancy between the active medication record review and the produce production team member's self-reported list of medications? 11. [ hematuria feb 2022 ] List documented significant care the produce production team member has received since their last PHA from a provider OUTSIDE the Health System 12. [ Yes: hematuria feb 2022 ] Is there a discrepancy between the produce production team member's list of OUTSIDE care (from OTH5), and the OUTSIDE care found in the record? 13. [ urethral spasm mar 2022 ] List documented significant care the produce production team member has received since their last PHA from a provider INSIDE the Health System 15. [ Not Answered ] Confirm that vaccine exemptions are listed in the medical record for each vaccine listed 16. [ No Discrepancies Noted ] Review available medical documentation of allergies and compare with produce production team member responses. Document any discrepancies ? III. OCCUPATION-SPECIFIC EXAMINATIONS 2. [ ] When was the produce production team member's most recently documented evaluation? ? IV. FAMILY HISTORY AND LIFESTYLE 1. [ Yes ]? Does the [id number] reflect the produce production team member's reported family history? ? . DEPLOYMENT-RELATED HEALTH ASSESSMENTS 1. [ Yes ] Based on your check of records, does the produce production team member have any due or overdue deployment health assessments which need to be completed with this PHA? ? VII. INDIVIDUAL MEDICAL READINESS 1. [ No ] Does the produce production team member have an Assignment Limitation Code C? 3. [ Classification: 1 ] Most recently documented dental exam 4. [ Yes ] Is the produce production team member current on all required immunizations in the immunization tracking system? 6. Does the produce production team member have the following laboratory tests documented in their permanent medical record? ? ? [ Yes ] HIV test within the PAST 24 months? ? [ Yes ] G6PD results on file? ? [ Yes ] Blood type and Rh on file? ? [ Yes ] DNA test on file IX. ADDITIONAL RECORD REVIEWER COMMENTS 1. This record review does NOT have a need for provider notification or referral.2. Additional comments about this record review that need to be forwarded to the Health Plant Sprayer completing PART C: ? ? Date Record Review Completed: PART C. HEALTH CARE PROVIDER I. MENTAL HEALTH ASSESSMENT (MHA) PROVIDER INFORMATION 1. Last Name: HERMELINDO 2. First Name: MARU 3. Middle Name: Mar 31. Service Branch: [employer] 5. 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 EMAIL: [email or web address] 8. Facility: MEDICAL 9. Unit: [facility] 10. Address: [address] [place] [employer] 11. State: [place] 12. Zip Code: [address] 13. Phone: [phone] 14. Date HCP Review initiated: ? 1.? Member marked that they did not have a concern or a difficulty with a major life stressor. ? 2.? Address concerns identified on member questions 2 and 3. ? ? History of mental health care: N/A ? Member's response:? Provider's comments: ? ? Medications: N/A ? Member's response:? Provider's comments: ? 3.? Member's AUDIT-C screening score was 0. (nothing required) ? 4.? Member did not omari yes on two or more of questions 6a through 6e. 5.? Member did not omari More than half the days or nearly every day on question 7a or 7b. ? 6.? Suicide risk evaluation. 6. a. Ask: Over the past month, have you wished you were or wished you could go to sleep and not wake up?: No 6. b. Ask: Have you actually had any thoughts of killing yourself?: No 6. f. 1. Ask: In you lifetime, have you done anything, started to do anything, or prepared to do anything to end your life?: No 6. g. Further risk assessment comments: ? 7.? Member states that they have not had thoughts or concerns over the past month that they might hurt or lose control with someone. ? 9. Summary of Provider's identified concerns needing referrals: None 11. Comments: Virtual MHA reviewed with SM by phone after confirming his identity by 2 patient identifiers- SM does not endorse adjustment difficulties, sleep disturbance, depression, PTSD, alcohol/substance misuse, critical stressors, emotional problems or SI/HI- his virtual MSE is WNL- SM expressed awareness of available mental health resources that he can access as needed- no further action is needed at this time ? 13. Supplemental services recommended/information provided: ? ? Health Education and Information ? Date MHA Certified: ? III. PERIODIC HEALTH ASSESSMENT (PHA) PROVIDER INFORMATION 1. Last Name: HERMELINDO 2. First Name: MARU 3. Middle Name: Mar 31. Service Branch: [employer] 5. 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 EMAIL: [email or web address] 8. Facility: [address] [place] [address] 9. Unit: [facility] 10. Address: [address] [place] [address] 11. State: [place] 12. Zip Code: [address] 13. Phone: [phone] 14. Date HCP Review initiated: ? IV. PERIODIC HEALTH ASSESSMENT PROVIDER RECOMMENDATIONS and REFERRALS 1. Provider concerns with this assessment: No issues or concerns identified ? V. SUMMARY AND COMMENTS 1. 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 2. Provider Comments: ? ? . INDIVIDUAL MEDICAL READINESS DISPOSITION DETERMINATION ? ? JAYDEN: Ready? ? DEN: Ready? ? IMM: Ready? ? LAB: Ready? ? ME: Ready ? ? IMR Status: Fully Medically Ready ? VII. 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 Reference Ramirez 6490.07 ? ?Yes (produce production team member DOES NOT currently have a medical condition that limits deployability) ? Date PHA Completed: ? END OF [id number] REPORT ? [facility] Review Summary ? [ No ] Does the member have 4 or more consecutive fitness exemptions or any waist circumference exemptions? ? [ No ] Does the member have a history of a RILO/MEB? ? [ No ] Does the member have any abnormal laboratory results since their last PHA? ? [ No ] Does the member have any pathology or radiology results since their last PHA? ? [ No ] Does the member have any outstanding medical concerns/open consults or referrals? ? [ No ] Is the member currently under specialty medical care? ? [ No ] Does the member have any conditions that dictate a referral to the [facility]? ? Active Medical Conditions:? None. ? [ NA ] Cleared for flying/special operation duties ? [ NA ] Cleared for PRAP duties ? [ NA ] Medical surveillance examination requirements up to date ? 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 [ Yes ] Cleared for continued service ? [ Yes ] Cleared for mobility duties ? [ Yes ] Cleared for participation in AF physical fitness program ? END OF [facility] SUMMARY 2.?Exposure to environmental pollution, occupational reported?hx of?exposure?to burn pits during deployment(s) to:? [place] and [place] 2020 ? -?does not endorse cardiopulmonary symptoms -?instructed to register on the [place] Airborne Hazards and Open Burn Pit Registry for tracking and receipt of updated health information -?download copy of intake questionnaire and bring to [facility] office for uploading into EHR ? verbalized understanding and agreed to comply ? 3.?Personal history of deployment ? Extracted from:Title: Office Clinic Note Author: Ad Aldana PA Date: 04/02/22 1.?Urethral spasm Pt reports to [facility] for ED f/u after experiencing flank pain. ED provider suspected nephrolithiasis and appropriate labs and imaging was done. CT was negative for any kidney stones but UA showed e/o hematuria. Pt states flank pain is still present but mild that will radiate to lower abdominal area. Denies any urinary symptoms. Suspect ureter spasms after potentially passing a kidney stone. Recommend use of NSAID and f/u PRN if symptoms persist after one month. Will then consider repeat UA and referral to urology. Pt agreed to plan of care and had no further questions at this time.? ? 2.?Lumbar strain PE showed sxs of lumbar strain on right side. No midline tenderness. No indication for imaging today. Recommended use of ice, rest and NSAID for symptom management. Also prescribed lidocaine patches and Robaxin. No profile indicated at this time. F/u PRN. Pt agreed to plan of care and had no further questions at this time.? Ordered: lidocaine topical(lidocaine 5% topical film), 1 patch(es), Topical, Daily, Leave on for up to 12 hours within a 24 hour period (12 hours on, 12 hours off), # 30 patch(es), 3 total refill(s), Maintenance, 1 patch(es) Topical Daily,Instr:Leave on for up to 12 hours within a 24 hour period (12 hours... methocarbamol(Robaxin 500 mg oral tablet), 2 tab(s), Oral, QID, X 7 days, # 56 tab(s), 0 total refill(s), Acute, 2 tab(s) Oral QID,x7 days, Pharmacy: [facility] [Last filled 04/02/22] ? 3.?Keloid of skin Pt also reports large nodule on skin of chest. PE showed non-mobile nodule that resembled a keloid scar. Pt has excessive chest hair and suspect this was once a follicular cyst that was expressed and developed into a large scar. Recommend referral to dermatology to discuss tx options to include steroid injections. Placed referral. Pt agreed to plan of care and had no further questions at this time.? Ordered: Referral Request 2.0 ? -Patient states understanding and acceptance of care plan as discussed. No further questions were asked. -I spent? 10-19?min. moxg-ge-fiew w/ pt. , greater than 50% in counseling/coordination of care. -No new DR/MR/FR/AUoF restriction. Not on flying status or PRP. Follow up?PRN. -Portions of this note were scribed by my medical office manager(s). I have verified the information and medical decision making is my own. ? Deployment Criteria: ? ? ? Y?Must be able to perform duties of AFSC for a prolonged period (at least 12 hours).? ? Y?Must have adequate night vision to be able to travel unassisted at night.? ? Y?At a minimum must be able to carry all required deployment baggage (at least 40 lbs) and additional requirements for duty or deployment AFSC.? ? Y?Must be able to run at least 100 yards to take cover.? ? Y?Must be able to subsist on field rations for up to 179 days.? ? Y?Must be able to perform duties in hot and cold environments, without any known predisposition to heat or cold injury.? ? //Electronically signed// ? AD ALDANA PA-C, Capt , [employer], BSC Physician Dental Nurse? Extracted from:Title: magnetic healer- Abdominal Pain and Back Pain Author: RICARDO PATEL RN Date: 03/16/22 -Per [facility] Protocol 2020,?patient advised ?to present to Urgent Care. Patient verbalized understanding and is agreeable to plan. Patient states they will go to?[facility] [address] -Red flags signs and symptoms discussed to seek emergency care to include severe pain, loss of bowel or bladder control, unable to urinate, constant abdominal pain lasting > 2 hrs, blood in urine, bloody/black tarry stools,?fever >103, or difficulty breathing. -Advised patient to return call to clinic for any questions or concerns. -Instructed patient to call Nurse Advise Line to speak with a nurse after hours or to get after hours Urgent Care referral at [phone] ? ? Patient verbalized understanding and agreeable with plan of care.? GIANFRANCO Aldana, please review. Thank you. ? Talk time ?15 minutes ? ? ? Extracted from:Title: magnetic healer- Sore Throat Author: RICARDO PATEL RN Date: 02/25/22 -Per [facility] Protocol 2020,?patient advised ?to present to [facility] today. Patient verbalized understanding and is agreeable to plan. Patient scheduled in Resp. Clinic today 02/25/22 at 1420. -Red flags signs and symptoms discussed to seek emergency care to include severe pain, fever >103, or difficulty breathing. -Advised patient to return call to clinic for any questions or concerns. -Instructed patient to call Nurse Advise Line to speak with a nurse after hours or to get after hours Urgent Care referral at [phone] ? ? Patient verbalized understanding and agreeable with plan of care.? GIANFRANCO Haider, please review. Thank you. ? Talk time?8? minutes ? ? ? Extracted from:Title: Virtual DRGERALD #3/MHA Author: MARU ALVARENGA NP Date: 04/16/21 1.?ASSESSMENT, POST DEPLOYMENT, DOCUMENTED ON [id number] (PDHRA) ?Diagnosis: ?1. ?ASSESSMENT, POST DEPLOYMENT, DOCUMENTED ON [id number] (PDHRA) ?Comment:?Ordered:??Brief Comm Tech-Based Svc, Virt, Phys, Est Pt; 5-10 Min Med Dis G2012; 04/16/2021 11:26:00 PST ? Administration,Pt-[facility] [address]; 04/16/2021 11:26:00 PST ? Virtual DRHA #3/MHA reviewed with SM by phone after confirming his identity by 2 patient identifiers. ? -?no post-deployment health issues or concerns identified -?JOEL does not endorse adjustment difficulties, sleep disturbance, depression, PTSD, alcohol/substance misuse, critical stressors, emotional problems or SI/HI -?his brief virtual MSE is WNL -?no further action is needed at this time ? Addendum by MARU ALVARENGA NP on April 16, 2021 14:27:27 PST POST DEPLOYMENT HEALTH RE-ASSESSMENT ([id number] DEC 2014) ? 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 Recommended referal(s): ? ? Referral Time Comments: Virtual DRHA 3/MHA reviewed with SM by phone after confirming his identity by 2 patient identifiers. ? - no post-deployment health issues or concerns identified - JOEL does not endorse adjustment difficulties, sleep disturbance, depression, PTSD, alcohol/substance misuse, critical stressors, emotional problems or SI/HI - his brief virtual MSE is WNL - no further action is needed at this time ? Provider's Name: MARU ALVARENGA, CTR, [facility] Date: 1.? Address concerns identified on deployer questions 1 and 2. ? ? Self health rating: N/A ? Deployer's response: N/A ? Provider's comments: ? ? Change in health post-deployment: N/A ? Deployer's response: N/A ? Provider's comments: ? 2.? Address wounds, injuries, assaults, etc., occurring during deployment as reported on deployer question 3. ? ? Deployer did not indicate concern. ? 3.? Deployment experiences as reported in deployer question 4.? Consider in overall assessment; as follow-up questions as indicated. ? ? Danger of being killed: N/A ? Provider's comments: ? ? Encountered bodies or saw people killed or wounded: N/A ? Provider's comments: ? ? In direct combat and discharged weapon: N/A ? Provider's comments: ? 4.? Address concerns identified on deployer questions 5 through 7. ? ? Health care visits since return: N/A ? Deployer's response: ? Provider's comments: ? ? Hospitalized since return: N/A ? Deployer's response: N/A ? Provider's comments: ? ? Physical limitations/problems: N/A ? Deployer's response: N/A ? Provider's comments: ? 5.? Post-deployment general symptoms/health concerns. ? ? List of symptoms reported as Bothered a Lot on Deployer Questions 8a. through 8dd.: None ? ? List of symptoms reported as Bothered a Little on Deployer Questions 8a. through 8dd.: None ? ? ? Physical symptom (PHQ-15) severity score for Deployer Questions 8a. through 8o.: Minimal ? ? ? a. Deployer does not have evidence of high generalized post-deployment physical symptoms. ? 6.? Deployer marked that they did not have a concern or a difficulty with a major life stressor. ? 7.? Address concerns identified on deployer questions 10 and 11. ? ? History of mental health care: N/A ? Deployer's response:? Provider's comments: SM was seen by CARMEN cortez 2 in Jan/Feb 2021 for increased anxiety due to extended family stress and states sessions were helpful. ? ? Medications: N/A ? Deployer's response:? Provider's comments: ? 8.? Deployer's AUDIT-C screening score was 0. (nothing required) ? 9.? Deployer did not omari yes on two or more of questions 13a through 13d. 10.? Deployer did not omari More than half the days or nearly every day on question 14a or 14b. ? 11.? Deployer did not indicate a worry or concern about a possible environmental/work exposure. ? 12.? Deployer indicated they were NOT bitten or scratched during this deployment. ? 13.? Deployer has not been bothered by thoughts that they would be better off or of hurting themself in some way. ? 14.? Deployer states that they have not had thoughts or concerns over the past month that they might hurt or lose control with someone. ? ? 20. Supplemental services recommended/information provided: ? ? Health Education and Information 1. Overall how would you rate your health during the PAST MONTH? : Good ? 2. Compared to before your most recent deployment, how would you rate your health in general now? : Somewhat better now than before I deployed ? 3. Were you wounded, injured, assaulted or otherwise hurt during your deployment? : No ? 4. During your deployment: 4. a. Did you ever feel like you were in great danger of being killed?: No 4. b. Did you encounter bodies or see people killed or wounded during this deployment?: No 4. c. Did you engage in direct combat where you discharged a weapon?: No ? 5. Since you returned from deployment, how many times have you gone to a health care provider for a medical, dental, or mental health problem/concern? : No visits ? 6. Since you returned from deployment, have you been hospitalized? : No ? 7. During the PAST MONTH, how difficult have physical health problems (illness or injury) made it for you to do your work or other regular daily activities? : Not difficult at all ? 8.? During the PAST MONTH, how much have you been bothered by any of the following problems?? (See health care provider item #5 above) 9. a. Over the PAST MONTH, what major life stressors have you experienced that are a cause of significant concern or make it difficult for you to do your work, take care of things at home, or get along with other people (for example, serious conflicts with others, relationship problems, or a legal, disciplinary or financial problem)? : None ? 10. In the PAST YEAR did you receive care for any mental health condition or concern such as, but not limited to post traumatic stress disorder (PTSD), depression, anxiety disorder, alcohol abuse or substance abuse? : No ? 11. What prescription or over-the counter medications (including herbals/supplements) for sleep, pain, combat stress, or a mental health problem are you CURRENTLY taking? : None ? 12. a. How often do you have a drink containing alcohol? Never ? 13. Have you ever had any experience that was so frightening, horrible, or upsetting that in the PAST MONTH, you: 13. a. Have had nightmares about it or thought about it when you did not want to? No 13. b. Tried hard not to think about it or went out of your way to avoid situations that remind you of it? No 13. c. Were constantly on guard, watchful or easily startled? No 13. d. [place] numb or detached from others, activities, or your surroundings No ? 14. Over the LAST 2 WEEKS, how often have you been bothered by the following problems? 14. a. Little interest or pleasure in doing things: Not at all 14. b. Feeling down, depressed, or hopeless: Not at all ? 15. Are you worried about your health because you believe you were exposed to something in the environment while deployed?: No ? 16.a. During this deployment were you based or stationed at a location where an open burn pit was used?: Yes 16.b. During this deployment were you exposed to toxic airborne chemicals or other air-borne contaminants?: No 16.c. For Service members, are you enrolled in the Airborne Hazards and Open Burn Pit Registry?: No 16.d. For Service members, if you are eligible, do you? elect to enroll in the Airborne Hazards and Open Burn Pit Registry?: No ? 17. Were you bitten or scratched by an animal during your deployment?: No 18. Would you like to schedule an appointment with a health care provider to discuss any health concern(s)?: No 19. Are you interested in receiving information or assistance for a stress, emotional or alcohol concern?: No 20. Are you interested in receiving assistance for a family or relationship concern?: No 21. Would you like to schedule a visit with a financial analyst accountant or a community support counselor?: No Extracted from:Title: Miguel KULKARNI #2 Author: MARU ALVARENGA NP Date: 01/09/21 1.?ASSESSMENT, POST-DEPLOYMENT, DOCUMENTED ON [id number] Matheus #2 reviewed with in person.? No post-deployment health issues or concerns identified.? He is an at risk drinker (AUDIT-C Score 6; CAGE? questions negative), receptive to BRIEF intervention on alcohol reduction for health and career reasons.? He does not endorse depression, PTSD, critical stressors, emotional problems or SI/HI.? His brief MSE is WNL.? No further action is needed at this time. Ordered: Administration,Pt-[facility] [address] ? Addendum by MARU ALVARENGA NP on January 09, 2021 14:24:02 PDT POST DEPLOYMENT HEALTH ASSESSMENT (PDHA) - [id number] DEC 2014 ? 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 None identified ? Provider Comments: GERALD 2 reviewed with in person.? No post-deployment health issues or concerns identified.? He is an at risk drinker (AUDIT-C Score 6; CAGE? questions negative), receptive to BRIEF intervention on alcohol reduction for health and career reasons.? He does not endorse depression, PTSD, critical stressors, emotional problems or SI/HI.? His brief MSE is WNL.? No further action is needed at this time. ? Provider's Name: TANIKA ENGEL, FOLDER MACHINE OPERATOR Date: 1.? Address concerns identified on deployer questions 1 and 2. ? ? Self health rating: N/A ? Deployer's response: N/A ? Provider's comments: ? ? Change in health post-deployment: N/A ? Deployer's response: N/A ? Provider's comments: ? 2.? Address wounds, injuries, assaults, etc., occurring during deployment as reported on deployer question 4. ? ? Deployer did not indicate concern. ? 3.? Deployment experiences as reported in deployer question 5.? Consider in overall assessment; as follow-up questions as indicated. ? ? Danger of being killed: N/A ? Provider's comments: ? ? Encountered bodies or saw people killed or wounded: N/A ? Provider's comments: ? ? In direct combat and discharged weapon: N/A ? Provider's comments: ? 4.? Address concerns identified on deployer questions 6 through 9. ? ? Health care visits during deployment: N/A ? Deployer's response: N/A ? Provider's comments: ? ? Care for combat stress/mental health: N/A ? Deployer's response: N/A ? Provider's comments: ? ? Hospitalized since return: N/A ? Deployer's response: N/A ? Provider's comments: ? ? Physical limitations/problems: N/A ? Deployer's response: N/A ? Provider's comments: ? 5.? a. Deployer did not have an injury based on responses to question 10.a. ? 6.? Post-deployment general symptoms/health concerns. ? ? List of symptoms reported as Bothered a Lot on Deployer Questions 11a. through 11ee.: None ? ? List of symptoms reported as Bothered a Little on Deployer Questions 11a. through 11ee.: None ? ? ? Physical symptom (PHQ-15) severity score for Deployer Questions 11a. through 11o.: Minimal ? ? ? a. Deployer does not have evidence of high generalized post-deployment physical symptoms. ? 7.? Deployer marked that they did not have a concern or a difficulty with a major life stressor. ? 8.? Self-reported history of prescription or [id number] medications as described on deployer question 13. ? ? Medications: N/A ? Deployer's response:? N/A ? Provider's comments: ? 9.? Deployer's AUDIT-C screening score was 6. ? ? Number of drinks per week: 12 ? ? Maximum number of drinks per occasion: 6 ? ? Referral is not indicated because there is no significant impairment. ? 10.? Deployer did not omari yes on two or more of questions 15a through 15d. 11.? Deployer did not omari More than half the days or nearly every day on question 16a or 16b. ? 12.? Deployer did not indicate a worry or concern about a possible environmental/work exposure. ? 13. Deployer marked NO to the question about possible exposure to depleted uranium. ? 14. Deployment location did not require malaria prophylaxis. ? 15.? Deployer indicated they were NOT bitten or scratched during this deployment. ? 16.? Deployer has not been bothered by thoughts that they would be better off or of hurting themself in some way. ? 17.? Deployer states that they have not had thoughts or concerns over the past month that they might hurt or lose control with someone. ? ? 23. Supplemental services recommended/information provided: ? ? Health Education and Information 1. Overall how would you rate your health during the PAST MONTH? : Very Good ? 2. Compared to before this deployment, how would you rate your health in general now? : About the same as before I deployed ? 3. How often did you smoke tobacco (for example cigarettes, cigars, pipe, or hookah) during your deployment? : Just about every day ? 4. Were you wounded, injured, assaulted or otherwise hurt during your deployment? : No ? 5. During your deployment: 5. a. Did you ever feel like you were in great danger of being killed?: No 5. b. Did you encounter bodies or see people killed or wounded during this deployment?: No 5. c. Did you engage in direct combat where you discharged a weapon?: No ? 6. How many times during your deployment did you visit a health care provider for a medical or dental health problem/concern? : No visits ? 7. During this deployment did you receive care for combat stress or a mental health problem/concern? : No 8. During this deployment did you have to spend one or more nights in a hosptial as as patient? : No ? 9. During the PAST MONTH, how difficult have physical health problems (illness or injury) made it for you to do your work or other regular daily activities? : Not difficult at all ? 10.a. During this deployment, did any of the following events happen to you? (Omari all that apply) ?(1) Blast or explosion (e.g. IED, RPG, EFP, land mine, grenage, etc.)?? No ?(2) Vehicular accident/crash (any vehicle including aircraft)?? No ?(3) Fragment would or bullet wound? a. Head or neck?? No ? b. Rest of body?? No ?(4) Other injury (e.g., sports injury, accidental fall, etc.)?? No ? 11.? During the PAST MONTH, how much have you been bothered by any of the following problems?? (See health care provider item #6 above) 12. a. Over the PAST MONTH, what major life stressors have you experienced that are a cause of significant concern or make it difficult for you to do your work, take care of things at home, or get along with other people (for example, serious conflicts with others, relationship problems, or a legal, disciplinary or financial problem)? : None ? 13. What prescription or over-the counter medications (including herbals/supplements) for sleep, pain, combat stress, or a mental health problem are you CURRENTLY taking? : None ? 14. a. How often do you have a drink containing alcohol? 2-3 times per week 14. b. How many drinks containing alcohol do you have on a typical day when you are drinking? 3 or 4 14. c. How often do you have six or more drinks on one occasion? Monthly ? 15. Have you ever had any experience that was so frightening, horrible, or upsetting that in the PAST MONTH, you: 15. a. Have had nightmares about it or thought about it when you did not want to? No 15. b. Tried hard not to think about it or went out of your way to avoid situations that remind you of it? No 15. c. Were constantly on guard, watchful or easily startled? No 15. d. [place] numb or detached from others, activities, or your surroundings No ? 16. Over the LAST 2 WEEKS, how often have you been bothered by the following problems? 16. a. Little interest or pleasure in doing things: Not at all 16. b. Feeling down, depressed, or hopeless: Not at all ? 17. Are you worried about your health because you believe you were exposed to something in the environment while deployed?: No 18. Do you think you were exposed to any chemical, biological, or radiological warfare agents during this deployment?: No 19. Were you in a vehicle hit by a depleted uranium (DU) round; inside a destroyed vehicle that contained DU; or closely inspect such a vehicle?: No 20. Were you told to take medicines to prevent malaria?: No ? 21. Over the LAST 2 WEEKS, how often have you been bothered by the following problems?: No 22. Would you like to schedule an appointment with a health care provider to discuss any health concern(s)?: No 23. Are you interested in receiving information or assistance for a stress, emotional or alcohol concern?: No 24. Are you interested in receiving assistance for a family or relationship concern?: No 25. Would you like to schedule a visit with a financial analyst accountant or a community support counselor?: No Extracted from:Title: SHAD #1 Author: MARU ALVARENGA WHNP Date: 03/14/20 1.?ASSESSMENT, PRE-DEPLOYMENT, DOCUMENTED ON [id number] DRHA #1, most recent PHA (Jun 2019), [facility] and [facility] EHR, IMR, and medical hx reviewed with SM. No acute or chronic deployment limiting health conditions identified.? He has?a reported medication allergy to Amoxicillin (hives)?and will need red dog tags.? He?is not G6PD deficient. ?SM does not endorse depression, PTSD, risky drinking, critical stressors, emotional problems or SI/HI.?His brief MSE is WNL.?He is medically cleared for deployment and was instructed to f/u with Public Health for pre-deployment labs, CHASITY, and required immunizations. BW/CW will be ordered as required for this deployment tasking with instructions not to open or use unless directed to do so by the theater commander.? He verbalized understanding and agreed to comply.? No further action is needed at this time. Ordered: atropine-pralidoxime, See Instructions, Inject IntraMuscularly in thigh or buttocks, Once, every 15 minutes PRN, under Commander's direction, # 8.1 mL, 0 total refill(s), Maintenance, Dispense 3 Auto-Injectors to patient for deployment., [facility] ciprofloxacin, 1 tab(s), Oral, BID, X 30 days, # 60 tab(s), 0 total refill(s), Acute, 04/13/2020, [facility] [Not filled] diazePAM, 10 mg, IntraMuscular, As Directed, 10 mg, IntraMuscular, As Directed, Administer autoinjector IM as directed by theater commander, # 1 EA, 0 total refill(s), Maintenance, [facility] [Not filled] potassium iodide, 1 tab(s), Oral, Daily, PRN while protection is needed, To take only at the discretion of the theater commander., X 14 days, # 14 tab(s), 0 total refill(s), Acute, [facility]Not filled] pyridostigmine, See Instructions, Take as directed under the direction of the commander, # 42 EA, 0 total refill(s), Maintenance, [facility] [Not filled] Administration,[facility] [id number] ? Addendum by MARU ALVARENGA on March 14, 2020 09:06:11 PST PRE-DEPLOYMENT HEALTH ASSESSMENT ([id number] DEC 2014) ? 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 Medical assessment/disposition comments: ? ? Summary of provider's identified concerns needing referral:? 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 Address concerns identified on deployer questions 1 through 8. ? ? Self health rating: N/A ? Deployer's response: N/A ? Provider's comments: ? ? MEB or PEB: ? Deployer's response:? N/A ? Provider's comments: ? ? Medical, dental or mental health concern: N/A ? Deployer's response:? N/A ? Provider's comments: ? ? Head Injury: N/A ? Deployer's response:? N/A ? Provider's comments: ? ? Medications: N/A ? Deployer's response:? N/A ? Provider's comments: ? ? History of mental health care: N/A ? Deployer's response:? N/A ? Provider's comments: ? 2. Member marked that they were not bothered by noises in head or ears or trouble hearing. ? 3.? Deployer's AUDIT-C screening score was 0. (nothing required) ? 4.? Deployer did not omari yes on two or more of questions 11a through 11d. 5.? Deployer did not omari More than half the days or nearly every day on question 12a or 12b. ? 6.? Deployer marked that they did not have a concern or a difficulty with a major life stressor. ? 7.? Deployer has not been bothered by thoughts that they would be better off or of hurting themself in some way. ? 8.? Deployer states that they have not had thoughts or concerns over the past month that they might hurt or lose control with someone. ? 9. Medical history review completed. ? ? ? a. Significant findings related to ability to deploy: SHAD 1, most recent PHA (Jun 2019), [facility] EHR, IMR, and medical hx reviewed with . No acute or chronic deployment limiting health conditions identified.? He has a reported medication allergy to Amoxicillin (hives) and will need red dog tags.? b. There is no evidence of deployment limiting conditions or medications. ? 16. Supplemental services recommended/information provided: ? ? Health Education and Information 1. Overall how would you rate your health during the PAST MONTH? : Very Good ? 2. Are you CURRENTLY on a profile, limited duty, waiting on a MOS/Medical Retention Board (MMRB) decision, or being referred to a medical evaluation board (MEB) or physical evaluation board (PEB)? : No ? 3. How often do you smoke tobacco (for example cigarettes, cigars, pipe or hookah)? : Some days ? 4. What problems, questions or concerns do you have about your medical, dental, or mental health? : No ? 6. In the PAST YEAR did you receive care for a head injury? : No ? 7. What prescription or over-the counter medications (including herbals/supplements) for sleep, pain, combat stress, or mental health conditions or concerns are you CURRENTLY taking? : None ? 8. During the PAST MONTH, how much have you been bothered by any of the following problems? : No ? 9. During the PAST MONTH, how much have you been bothered by any of the following problems? 9. a. Noises in your head or ears (such as ringing, buzzing, crickets, humming, tone, etc.) Not bothered at all 9. b. Trouble hearing Not bothered at all ? 10. a. How often do you have a drink containing alcohol? Never ? 11. Have you ever had any experience that was so frightening, horrible, or upsetting that in the PAST MONTH, you: 11. a. Have had nightmares about it or thought about it when you did not want to? No 11. b. Tried hard not to think about it or went out of your way to avoid situations that remind you of it? No 11. c. Were constantly on guard, watchful or easily startled? No 11. d. [place] numb or detached from others, activities, or your surroundings No ? 12. Over the LAST 2 WEEKS, how often have you been bothered by the following problems? 12. a. Little interest or pleasure in doing things Not at all 12. b. Feeling down, depressed, or hopeless Not at all ? 13. a. Over the PAST MONTH, what major life stressors have you experienced that are a cause of significant concern or make it difficult for you to do your work, take care of things at home, or get along with other people (for example, serious conflicts with others, relationship problems, or a legal, disciplinary or financial problem)? : None Extracted from:Title: Office Communication Author: Erica Polo Date: 10/19/19 On October?the new federal tobacco law takes effect on all [place]. ?The law raises the legal age for purchasing tobacco products from 18 to 21. ? Tobacco products include E-cigarettes and smokeless tobacco products. ? Contact Information Make an appointment with your PCM or?BHOP?sap basis consultant? Appointment?Line: [phone]? [facility] Portal:?[email or web address] ?Contact the Health Promotion Office for additional information and resources Health Promotion Office:[phone] ? Local Resource Options ??Medical?Group ?-??Primary Customer Success Intern (PCM) -??Behavioral Health Optimization (BHOP) -??Health?Promotion Office ? Additional Resources ? -??UCANQUIT2 -???[email or web address] -??www.Smokefree.gov -??www.cdc.gov/tobacco -??www.[facility].org ? ?? 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 He?does not endorse depression, PTSD, risky drinking, critical stressors, emotional problems or SI/HI. His brief virtual MSE is WNL. At this time, he appears to be well adjusted to his home, work, and social environments. He?expressed awareness of available mental health resources that he may access as needed. No further action is needed at this time. ? ? ? 04/03/[address] [place] [address] Functional Status Combined list of recent functional and cognitive assessments recorded at [employer] (VA).VA Functional Snyder Measurement (FIM) Scale: 1 = Total Assistance (Subject = 0% +), 2 = Maximal Assistance (Subject = 25% +), 3 = Moderate Assistance (Subject = 50% +), 4 = Minimal Assistance (Subject = 75% +), 5 = Supervision, 6 = Modified Snyder (Device), 7 = Complete Snyder (Timely, Safely). Assessment Date/Time Source Assessment Type Assessment Skill Assessment Score Assessment Details No data available for this section
--- OUTSIDE RECORDS SUMMARY | 2024-04-02 19:43 | XMS_ITS | Continuity of Care Document ---
Author Name [facility] Organization [facility] Care Team Providers Care Glove Parts Inspector Name Role Phone [facility] Unavailable Unavailable Problems Combined list of problems [...] to patient for deployme nt., Route to [facility] Discont inued 01/09/2021 8.1 0128C-9 2ND MED GRP-[facility]YSIA RCHILD azithromyci n 500 mg oral tablet 4 tab(s), Oral, Once, # 4 tab(s), 0 total refill(s ), Physicia n Stop, 10/01/22 1:40:46 PM CDT, 4 tab(s) Oral Once, Pharmacy : [facility] Oral (given by mouth) Complet ed [...] total refill(s ), 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, 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, Route to [facility] Oral (given by mouth) Complet ed 04/13/2020 60.0 0128C-9 2ND MED GRP-ALYSIA RCHILD Colace 100 mg oral capsule 1 cap(s), Oral, BID, PRN constipa tion, # 100 cap(s), 1 total refill(s ), Maintena nce, 1 cap(s) Oral BID,PRN: constipa tion, Pharmacy : [facility] Oral (given by mouth) Ordered 100.0 0128C-9 2ND MED GRP-[facility]YSIA RCHILD diazePAM 10 mg auto injector 10 mg, IntraMus cular, As Directed , 10 mg, IntraMus cular, As Directed , Administ er autoinje ctor IM as directed by thedenise wilder, # 1 EA, 0 total refill(s ), Maintena nce, Route to [facility] IntraM uscula r (in a muscle [...] d chlamydi a infectio n., Pharmacy : [facility] Oral (given by mouth) Discont inued [...] once. RN to administ er, Pharmacy : [facility] Discont inued 10/01/2022 6.0 0128C-9 2ND MED GRP-[facility]IA RCHILD levoFLOXaci n 500 mg oral tablet 1 tab(s), Oral, every 24 hr, X 10 days, # 10 tab(s), 0 total refill(s ), Acute, 10/11/22 2:45:00 PM CDT, 1 tab(s) Oral every 24 hr,x10 days, Pharmacy : [facility] Oral (given by mouth) Complet ed [...] needed for constipa tion., Pharmacy : [facility] Ordered 510.0 0128C-9 2ND MED GRP-ALYSIA [...] BID,x7 days,PRN :fever/m ild pain, Pharmacy : [facility] Oral (given by mouth) Complet ed [...] 2 tab(s) Oral QID,x7 days, Pharmacy : [facility] Oral (given by mouth) [...] (disorder) active 0 [employer] [place] ([facility]) Immunizations Combined list of available immunizations from the Department of Defense and Veterans Affairs facilities. Immunization Series Date Given Administered By Site Reaction Lot Number CVX Code Drug Tax Compliance Officer Status Comments Source COVID Vaccine Pfizer 2020 REFUGIO [place] sharon, right (delt oid) [id number] PFIZER complet ed COVID Vaccine Pfizer 12/30/20 Given 0128C-9 2ND MED GRP-[facility]IA RCHILD influenza virus vaccine, inactivated 2020 KARELY [place] sharon, left (delt oid) [id number] 141 [facility] complet ed influenza virus vaccine, inactivat ed 12/09/20 Given 0128C-9 2ND MED GRP-[facility]IA RCHILD COVID Vaccine Pfizer 2020 KARELY [place] sharon, right (delt oid) [id number] PFIZER complet ed COVID Vaccine Pfizer 12/09/20 Given 0128C-9 2ND MED GRP-ALYSIA RCHILD typhoid vaccine, parenteral 2019 BRJOSE LUISPLSHRUTHI [place] sharon, right (delt oid) [id number] sanofi pasteur complet ed typhoid vaccine, parentera l 03/14/20 Given 0128C-9 2ND MED GRP-[facility]YSIA RCHILD anthrax vaccine 2019 BRIANTAIWO [place] sharon, left (delt oid) [id number] 24 CompassMed. complet ed anthrax vaccine 03/14/20 Given 0128C-9 2ND MED GRP-[facility]YSIA RCHILD influenza virus vaccine, inactivated 2019 KYLEMUYMIKO [place] sharon, right (delt oid) [id number] 141 [employer], A [employer] complet ed influenza virus vaccine, inactivat ed 02/14/20 Given 0128C-9 2ND MED GRP-ALYSIA RCHILD human papillomaviru s vaccine 2019 [address]LEMQUINN [place] sharon, left (delt oid) [id number] 165 Merck & Company Inc complet ed human papilloma virus vaccine 02/14/20 Given 0128C-9 2ND MED GRP-ALYSIA RCHILD human papillomaviru s vaccine 2019 [address] [place] sharon, left (delt oid) [id number] 165 Merck & Company Inc complet ed human papilloma virus vaccine 10/04/19 Given 0128C-9 2ND MED GRP-ALYSIA RCHILD human papillomaviru s vaccine 2019 KARELY [place] sharon, left (delt oid) [id number] 165 Merck & Company Inc complet ed human papilloma virus vaccine 07/19/19 Given 0128C-9 2ND MED GRP-ALYSIA RCHILD hepatitis A-hepatitis B vaccine 2019 BRIANPLSHRUTHI [place] sharon, left (delt oid) [id number] Audience.fmKli ne complet ed hepatitis A-hepatit is B vaccine 07/19/19 Given 0128C-9 2ND MED GRP-[facility]IA RCHILD influenza, injectable, quadrivalent- pf 2018 [id number] 150 Seqirus complet ed influenza , injectabl e, quadrival ent-pf 01/22/19 Given 0128C-9 2ND MED GRP-[facility]YSIA RCHILD hepatitis A-hepatitis B vaccine 2018 [id number] 104 GlaxoSmithKli ne complet ed hepatitis A-hepatit is B vaccine 01/22/19 Given 0128C-9 2ND MED GRP-ALYSIA RCHILD hepatitis A-hepatitis B vaccine 2018 [id number] 104 GlaxoSmithKli ne complet ed hepatitis A-hepatit is B vaccine 12/06/18 Given 0128C-9 2ND MED GRP-ALYSIA RCHILD adenovirus vaccine, live 2018 [id number] 143 Teva Pharmaceutica ls complet ed adenoviru s vaccine, live 12/01/18 Given 0128C-9 2ND MED GRP-[facility]YSIA RCHILD tetanus, diphtheria, acellular pertu is 2018 [id number] 115 GlaxoSmithKli ne complet ed tetanus, diphtheri a, acellular pertussis 12/01/18 Given 0128C-9 2ND MED GRP-ALYSIA RCHILD meningococcal A,C,Y,W-135 (MCV4P) 2018 [id number] 114 sanofi pasteur complet ed meningoco ccal A,C,Y,W-1 35 (MCV4P) 12/01/18 Given 0128C-9 2ND MED GRP-ALYSIA RCHILD poliovirus vaccine, inactivated 2018 [id number] sanofi pasteur complet ed polioviru s vaccine, inactivat ed 12/01/18 Given 0128C-9 2ND [facility] GRP-ALYSIA RCHILD Results Combined list of recent chemistry, hematology and other laboratory results from Department of Defense and Veterans Affairs, ranging from 15 months to all on record, depending upon the facility. Order Name Results Value Reference Range Date Interpretation Specimen Comments Source Infectiou s Disease GC Scrn Not Detected (10/01/22 12:15 PM) 10/01 N 0128C-9 2ND MED GRP-ALYSIA RCHILD Infectiou s Disease Chlamydia Scrn Not Detected (10/01/22 12:15 PM) 10/01 N 0128C-9 2ND MED GRP-ALYSIA RCHILD Urinalysi s UA WBC 0-1 10/01 0128C-9 [...] MED GRP-ALYSIA RCHILD Urinalysi s UA Spec [place] 1.010 1.006 - 1.029 10/01 N 0128C-9 [...] 2:04 PM) 09/17 N 0128C-9 2ND MED GRP-ALYISA RCHILD Urinalysi s UA Bili Negative (09/17/22 [...] UA Ketones 15 mg/dL 09/17 A 0128C-[address] [place] [address] GRP-ALYSIA RCHILD Urinalysi s UA Leuk Esterase Negative (09/17/22 2:04 PM) 09/17 N 0128C-[address] [place] [address] GRP-ALYSIA RCHILD Urinalysi s UA Nitrite Negative (09/17/22 2:04 PM) 09/17 N 0128C-[address] [place] [address] GRP-ALYSIA RCHILD Urinalysi s UA pH 7.0 4.6 - 8.0 09/17 N 0128C-[address] [place] [address] GRP-ALYSIA RCHILD Urinalysi s UA Protein Negative mg/dL 09/17 N 0128C-[address] [place] [address] GRP-ALYSIA RCHILD Urinalysi s UA Spec [place] 1.015 1.006 - 1.029 09/17 N 0128C-[address] [place] [address] GRP-ALYSIA RCHILD Urinalysi s UA Urobilinoge n 0.2 E.U./dL 09/17 N 0128C-[address] [place] [address] GRP-ALYSIA RCHILD Urinalysi s UA Micro Ind? Indicate d *ABN* (09/17/22 2:04 PM) 09/17 A 0128C-[address] [place] [address] GRP-ALYSIA RCHILD Infectiou s Disease HIV-1/O/2.E PI [...] s HIV diagnostic algorithm. Refer to [facility] Lab Guide for additional information : [email or web address]/ kj/[email or web address]/EPIL ab/Pages/la b_guide.asp x Testing performed by [facility] jasper vasquez. Performed by: Epidemiolog y Laboratory Service [facility] [address] [place] [address], [place] [phone] 0128C-[address] [place] [address] GRP-ALYSIA RCHILD Miscellan eous Sendouts Repository Sample.EPI RECEIVED 04/06 Result Comment: INTERPRETAT ION(S): Performed by: Epidemiolog y Laboratory Service [facility] [address] [place] [address], [place] [phone] 0128C-[address] [place] [address] GRP-ALYSIA RCHILD Infectiou s Disease Strep A, Rapid Neg (02/25/22 3:14 PM) 02/25 N 0128C-[address] [place] [address] GRP-ALYSIA RCHILD Molecular Infectiou s Disease SARS-CoV-2 [...] for this test is supported by the [place] of Health and Human Service s (HHS [...] g (12/08/20 10:46 AM) 12/08 N 0128C-[address] [place] [address] GRP-ALYSIA RCHILD Miscellan eous Sendouts Repository Sample.EPI RECEIVED 12/08 Result Comment: INTERPRETAT ION(S): Performed by: Epidemiolog y Laboratory Service [facility] [address] [place] [address], [place] [phone] 0128C-9 2ND [facility] GRP-ALYSIA RCHILD Molecular Infectiou s Disease Reason for Test? Diagnosi s (05/19/20 8:12 AM) 05/19 N -[address] [place] [address] GRP-ALYSIA RCHILD Molecular Infectiou s Disease SARS-CoV-2 [...] for this test is supported by the Medical Office Receptionist Assistant of Health and Human Service s (HHS [...] may no longer be used). 0128C-9 2ND [facility] GRP-ALYSIA RCHILD Infectiou s Disease HIV-1/O/2.E [...] s HIV diagnostic algorithm. Refer to [facility] Lab Guide for additional information : [email or web address]/k j/kx5/EPILa b/Pages/lab _guide.aspx Testing performed by Nova vasquez. Performed by: Epidemiolog y Laboratory Service [facility] [address] [place] [address], [place] [phone] 0128C-9 2ND [facility] GRP-ALYSIA RCHILD Miscellsamir eous Sendouts Repository Sample.EPI RECEIVED 03/14 Result Comment: INTERPRETAT ION(S): Performed by: Epidemiolog y Laboratory Service [facility] [address] [place] [address], [place] [address] 0128C-9 2ND MED GRP-ALYSIA RCHILD Vital Signs Combined list of inpatient and outpatient Vital Signs from Department of Defense and Veterans Affairs, ranging from 12 months to all on record, depending upon the facility. Vital Sign Value Date Comments Source Systolic Blood Pressure 138mm[Hg] 03/14/2020 16:52:00 0128C-92ND [facility] [place] Diastolic Blood Pressure 85mm[Hg] 03/14/2020 16:52:00 0128C-92ND [facility] [place] Mean Arterial Pressure, Calc 103mm[Hg] 03/14/2020 16:52:00 0128C-92ND [place] Peripheral Pulse Rate 84bpm 03/14/2020 16:52:00 0128C-92ND MED [facility] Respiratory Rate 16br/min 03/14/2020 16:52:00 0128C-92ND MED [facility] Systolic Blood Pressure 119mm[Hg] 09/17/2022 20:13:00 0128C-92[facility] [place] Diastolic Blood Pressure 75mm[Hg] 09/17/2022 20:13:00 0128C-92ND [...] ADM Date DC Date Status Disposition Source [facility] [place] [address](Hea ring Conservat ion, BMT) OUTPATIENT [id number] KAMILLA PINO 12/05 Released w/o Limitations [facility] [place] [address](H earing Conserv ation, BMT) [facility] [place] [address]([facility]) OUTPATIENT [id number] Notes Entered by: MIL PARK 06 Dec 2018 1159 ------- ------- ------- ------- -- Strep Prophyl axis, BOB PARK 12/06 Released w/o Limitations [facility] [place] [address](T [facility] d) Theater Facility OUTPATIENT [id number] Theater Provider 08/08 Immediate Referral Theater Facilit y Theater Facility OUTPATIENT [id number] Theater Provider 08/08 Released w/o Limitations Theater Facilit y Theater Facility OUTPATIENT [id number] Theater Provider 08/27 Released w/o Limitations Theater Facilit y Theater Facility OUTPATIENT [id number] Theater Provider 09/30 Sick at Home/Quarter s Theater Facilit y Theater Facility OUTPATIENT [id number] Theater Provider 09/30 Released w/o Limitations Theater Facilit y Procedures Combined list of: 1) Procedures from Department of Veterans Affairs facilities going back up to thelast 18 months, not all VA non-surgical procedures are included; 2) All procedures from the Department of Defense facilities. Procedure Procedure Type Code Date Perfomer Comments Sour e Threshold Audiogram (Pure Tone) Threshold Audiogram (Pure Tone) 46851 KAMILLA PINO [facility] Physician Supervised Injection Intramuscular Antibiotic Physician Supervised Injection Intramuscular Antibiotic 32237 BOB PARK [facility] THERAPEUTIC, PROPHYLACTIC, OR DIAGNOSTIC INJECTION (SPECIFY SUBSTANCE OR DRUG); SUBCUTANEOUS OR INTRAMUSCULAR 9 DoD PURE TONE AUDIOMETRY (THRESHOLD); AIR ONLY 9 [facility] No data available for this section MED GRP-FAIR ILD Social History Combined list of available smoking, tobacco, and other social history from Department of Defense and Veterans Affairs facilities. Social History Type Response Date Comment Sourc e Smoking Status Never (less than 100 in lifetime) 11/15/2019127C- MED [facility] Male 05/15/2019 MED [facility] This section is an empty social history section. [facility] Sexual Orientation 0128- [place] [facility] Gender identity 0128C-[address]N [address] [facility] Assessment and Plan Combined list of future care activities from Department of Defense and Veterans Affairs facilities (e.g., assessment and plan notes, appointments, orders, and referrals). Additional future care activities may be listed in the Plan of Care section. Result Assessment and Plan Date Source Assessment and Plan Extracted from:Title : Office Clinic Note- Chronic constipation; epididymitis (acute) Author: STEIVE FLETCHER Date: 10/01/22 1.?Constipation Chronic, uncontrolled despite bowel regimen. Will refer to GI for further eval/treatment. Ordered: doxycycline(doxycycline hyclate 100 mg oral capsule), 1 cap(s), Oral, BID, For treatment of suspected chlamydia infection., X 7 days, # 14 cap(s), 0 total refill(s), Acute, 10/08/2022, 1 cap(s) Oral BID,x7 days,Instr:For treatment of suspected chlamydia infection., Pharmacy: [facility] [Not fille GC and Chlamydia Screen [...] 2 tab(s) Oral BID,x7 days,PRN:fever/mild pain, [facility] [Not filled] A total of?approximately 45?minutes were spent related to this encounter on day of service including medical history and record review; ordering of medications, tests, and procedures; face to face time in communication and counseling with patient, family and/or caregivers; and documentation in the electronic health record and other records as applicable. ? //SIGNED// Stevie Fletcher MD, IMAN, [facility] Family Medicine Physician Agricultural Consultant, [facility], [address] [place], [place] [phone] ? Extracted from:Title: Office Clinic Note- Constipation [...] refill(s), Maintenance, 1 cap(s) Oral BID,PRN:constipation, Pharmacy: [facility] polyethylene glycol 3350(MiraLax oral powder for [...] labs, imaging, other diagnostic testing via the [facility] ([facility]) Patient Portal. ? ? //SIGNED// Stevie Fletcher MD, IMAN, [employer] Family Medicine Physician Agricultural Consultant, [facility], [address] [place], [place] [phone] ? Extracted from:Title: SHPE/MHA Author: LEUXS HAIDER PA Date: 09/14/22 1.?Encounter for other specified special examinations -?No depression, anxiety, SI, HI, substance abuse, or concerns. - Reviewed SHPE with patient, all health issues discussed, no concerning issues at this time which would require immediate attention or prevent member from separation? - Member clear for separation from primary care standpoint? -? ? ?[facility] Form completed ? - F/u PRN? 2.?Encounter for other general examination [facility]ed [facility] section and reviewed responses and new questions [...] DUTY RESTRICTIONS:? ?[X]? None, fully qualified in AFDE;?[ ]? A 469 has been created with [...] resolved within 31-365 days);?[ ]? Referred to [facility], for potential Code 37 and medical defect/condition requiring IRILO or MEB, IAW MARIA GUADALUPE [phone])?[ ]? Code 81 ; Discussed this with patient who indicated understanding ? DO NOT ARM NOTIFICATION: (Applicable to [employer], when a medication or medical condition could impair their ability to carry/use a weapon)? ?[X]? None;?[ ]? A Do Not Arm Notification was made via phone call to the [employer] ([phone]) and the Arming Use of Force (AUoF) module in [facility] was completed, and a duty restriction was issued via an AF form 462, with the statement Do Not Arm in the comments section Total time spent from by Provider on floor/phone time, record review, PE, and education and plan: ? 30min ? CAPT LEXUS HAIDER PA-C [facility] PCM [address] [employer], [place] ? 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 Patient scheduled with PCM [...] get after hours Urgent Care referral at [phone] ? Patient verbalized understanding and agreeable with [...] reviewed to include member s summary and live truck technician's Record Review section of PHAQ which [...] accomplished. Follow up?PRN. ? Maru Alvarenga, CTR, MORTGAGE ACCOUNTING CLERK [address] [facility]? [employer], [place]?Diagnosis: ?1. ?Encounter for other general examination ?Comment:?Ordered:??Brief Comm Tech-Based Svc, Virt, Phys, Est Pt; 5-10 Min Med Dis G2; 05/27/2022 07:30:00 PST ? Administration,Pt-Foc [facility] [id number]; 05/27/2022 07:30:00 PST ?Diagnosis: ?2. ?Exposure to environmental pollution, occupational ?Comment:?Ordered:??Brief Comm Tech-Based Svc, Virt, Phys, Est Pt; 5-10 Min Med Dis G2; 05/27/2022 07:30:00 PST ? Administration,Pt-Foc [facility] [id number]; 05/27/2022 07:30:00 PST ?Diagnosis: ?3. 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 Administration,Pt-Foc [facility] [id number]; 05/27/2022 07:30:00 PST ? End of Orders ? ANNUAL PERIODIC HEALTH ASSESSMENT ? I. ACTUARIAL MATHEMATICIAN INFORMATION AND DEMOGRAPHICS (SMI) 1. Last Name: NILDA 2. First Name: MAC 3. Middle Name: SANDOR 4. Assessment Date: 5. : 6. Age: 21 7. Gender: M 8. Do[employer] ID Number: [id number] 9. Service Branch: [employer] 10. 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 Status: Active Duty 12. 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 Unit Name: [address] [employer] 14. Duty Station/Location: [place] 15. UIC: [id number] 16. Is this your first Periodic Health Assessment (PHA)?: N 17. Are you enrolled in a secure messaging system with your health care provider?:? U ? 18. Current contact information: Preferred Method: Email 1 DSN: Day Time Phone: [phone] Night Time Phone: Email 1: [email or web address] Email 2: Address: [address] City: [place] State: [place] Zip Code: [address] ? 19. Point of contact who can always reach you: Name: MSgt Conway Phone 1: [phone] Phone 2: EMAIL: [email or web address] Address: City: State: Zip Code: ? II. DEPLOYMENT INFORMATION (DEP) 1. [ 1 ] Total number of deployments in the PAST 5 YEARS 2. [ [place] ] Primary country of last deployment 3. [ ] Date departed theater 4. [ N ] Are you going to deploy within the NEXT 120 DAYS? ? III. OCCUPATIONAL INFORMATION (OCC) 1? [ [id number] ] What is your occupational code 2. [...] easily startled? 6. d. [ No ] [place] numb or detached from others, activities, or your surroundings? 6. e. [ Not answered ] [place] guilt or unable to stop blaming yourself [...] like to schedule a visit with a gas mask assembler, mental health care provider, or a community [...] 8. [ Tylenol ] What prescriptions or iqxc-cag-glpxukq medications are you CURRENTLY taking for health [...] had a cholesterol check by a health family day carer within the PAST 5 YEARS? 13.a. In [...] any health concerns? ? XI. SEPARATION AND JAIL 1. [ Yes ] Are you planning to separate or retire within the next year from Active Duty or Dawn Duty (activated for greater than 30 continuous days) OR do you intend to file a claim for disability compensation with the [employer]? ? PART B. RECORD REVIEW AND RECOMMENDATIONS I. RECORD REVIEWER INFORMATION 1. Last Name: JESUS 2. First Name: NEO 3. Middle Name: 4. Service Branch: [employer] 5. Status: Active Duty 6. 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 EMAIL: [email or web address] 8. Facility: MEDICAL 9. Unit: [address] [place] [address] 10. Address: [place] 11. State: [place] 12. Zip Code: [address] 13. 14. Date Record Review: ? II. MEDICAL SCREENING 1. [ ] Date of business analytics faculty member's most recent PHA 2. [ 5 feet 10 inches? ?Date: ] business analytics faculty member's most recently documented height 3. [ 187 pounds? Date: ] business analytics faculty member's most recently documented weight 4. [ 128/86? Date: ] business analytics faculty member's most recently documented blood pressure reading 5. [ No ] Does the business analytics faculty member have a history of abnormal blood pressure since their last PHA? 6. [ Yes ] Does the business analytics faculty member have a laboratory test of sickle cell trait documented in their permanent medical record? 7. [ No Cholesterol Test Documented ] What is the date of the business analytics faculty member's most recently documented cholesterol test? 9. [ lidocaine topical? ]? List of business analytics faculty member's active medications listed in their permanent medical record 10. [ Yes: lidocaine topical tylenol ] Is there a discrepancy between the active medication record review and the business analytics faculty member's self-reported list of medications? 11. [ hematuria feb 2022 ] List documented significant care the business analytics faculty member has received since their last PHA from a provider OUTSIDE the Health System 12. [ Yes: hematuria feb 2022 ] Is there a discrepancy between the business analytics faculty member's list of OUTSIDE care (from OTH5), and the OUTSIDE care found in the record? 13. [ urethral spasm mar 2022 ] List documented significant care the business analytics faculty member has received since their last PHA from a provider INSIDE the Health System 15. [ Not Answered ] Confirm that vaccine exemptions are listed in the medical record for each vaccine listed 16. [ No Discrepancies Noted ] Review available medical documentation of allergies and compare with business analytics faculty member responses. Document any discrepancies ? III. OCCUPATION-SPECIFIC EXAMINATIONS 2. [ ] When was the business analytics faculty member's most recently documented evaluation? ? IV. FAMILY HISTORY AND LIFESTYLE 1. [ Yes ]? Does the [id number] reflect the business analytics faculty member's reported family history? ? . DEPLOYMENT-RELATED HEALTH ASSESSMENTS 1. [ Yes ] Based on your check of records, does the business analytics faculty member have any due or overdue deployment health assessments which need to be completed with this PHA? ? VII. INDIVIDUAL MEDICAL READINESS 1. [ No ] Does the business analytics faculty member have an Assignment Limitation Code C? 3. [ Classification: 1 ] Most recently documented dental exam 4. [ Yes ] Is the business analytics faculty member current on all required immunizations in the immunization tracking system? 6. Does the business analytics faculty member have the following laboratory tests documented [...] need to be forwarded to the Health Rotary Engine Assembler completing PART C: ? ? Date Record Review Completed: PART C. HEALTH CARE PROVIDER I. MENTAL HEALTH ASSESSMENT (MHA) PROVIDER INFORMATION 1. Last Name: HERMELINDO 2. First Name: MARU 3. Middle Name: Mar 31. Service Branch: [employer] 5. 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 Title: Nurse Practitioner (MORTGAGE ACCOUNTING CLERK) 7. EMAIL: [email or web address] 8. Facility: MEDICAL 9. Unit: [facility] 10. Address: [address] [place] [employer] 11. State: [place] 12. Zip Code: [address] 13. Phone: [phone] 14. Date HCP Review initiated: ? 1.? [...] 3. Middle Name: Mar 31. Service Branch: [employer] 5. 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 Title: Nurse Practitioner (MORTGAGE ACCOUNTING CLERK) 7. EMAIL: [email or web address] 8. Facility: [address] [place] [address] 9. Unit: [facility] 10. Address: [address] [place] [address] 11. State: [place] 12. Zip Code: [address] 13. Phone: [phone] 14. Date HCP Review initiated: ? IV. PERIODIC HEALTH ASSESSMENT PROVIDER RECOMMENDATIONS and REFERRALS 1. Provider concerns with this assessment: No issues or concerns identified ? V. SUMMARY AND COMMENTS 1. Additional information summarizing findings during the business analytics faculty member assessment: ? 2. Provider Comments: ? ? . INDIVIDUAL MEDICAL READINESS DISPOSITION DETERMINATION ? ? JAYDEN: Ready? ? DEN: Ready? ? IMM: Ready? ? LAB: Ready? ? ME: Ready ? ? IMR Status: Fully Medically Ready ? VII. SERVICE MEDICAL DEPLOYABILITY EVALUATION INDICATED Based on your review of all documentation, is the business analytics faculty member medically deployable without limitations?? Reference Ramirez 6490.07 ? ?Yes (business analytics faculty member DOES NOT currently have a medical condition that limits deployability) ? Date PHA Completed: ? END OF [id number] REPORT ? [facility] Review Summary ? [ No ] Does [...] conditions that dictate a referral to the [facility] Board? ? Active Medical Conditions:? None. ? 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 END OF [facility] SUMMARY 2.?Exposure to environmental pollution, occupational reported?hx of?exposure?to burn pits during deployment(s) to:? [place] and [place] 2020 ? -?does not endorse cardiopulmonary symptoms -?instructed to register on the [place] Airborne Hazards and Open Burn Pit Registry for tracking and receipt of updated health information -?download copy of intake questionnaire and bring to [facility] office for uploading into EHR ? [...] Acute, 2 tab(s) Oral QID,x7 days, Pharmacy: [facility] [Last filled 04/02/22] ? 3.?Keloid of [...] further questions were asked. -I spent? 10-19?min. fdui-si-odht w/ pt. , greater than 50% in counseling/coordination of care. -No new DR/MR/FR/AUoF restriction. Not on flying status or PRP. Follow up?PRN. -Portions of this note were scribed by my medical supervisor(s). I have verified the information and medical [...] ALDANA PA-C, Capt , [employer], BSC Physician Bodywork Therapist? 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 Patient verbalized understanding and is agreeable to plan. Patient states they will go to?[facility] [address] -[place] [...] get after hours Urgent Care referral at [phone] ? ? Patient verbalized understanding and agreeable with plan of care.? GIANFRANCO Aldana, please review. Thank you. ? Talk time ?15 minutes ? ? ? 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 ? Patient verbalized understanding and agreeable with plan of care.? GIANFRANCO Haider, please review. Thank you. ? Talk time?8? minutes ? ? ? Extracted from:Title: Virtual DRGERALD #3/MHA Author: MARU ALVARENGA NP Date: 04/16/21 1.?ASSESSMENT, POST DEPLOYMENT, DOCUMENTED ON [id number] (PDHRA) ?Diagnosis: ?1. ?ASSESSMENT, POST DEPLOYMENT, DOCUMENTED ON [id number] (PDHRA) ?Comment:?Ordered:??Brief Comm Tech-Based Svc, Virt, Phys, Est Pt; 5-10 Min Med Dis G2012; 04/16/2021 11:26:00 PST ? Administration,Pt-[facility] [address]; 04/16/2021 11:26:00 PST ? Virtual DRHA #3/MHA [...] 2021 14:27:27 PST POST DEPLOYMENT HEALTH RE-ASSESSMENT ([id number] DEC 2014) ? Last Name: NILDA First Name: MAC Social Security Number: [id number] Date of : Gender: Male Service Branch: [...] time ? Provider's Name: MARU ALVARENGA, CTR, [facility] Date: 1.? Address concerns identified on [...] watchful or easily startled? No 13. d. [place] numb or detached from others, activities, or [...] like to schedule a visit with a gas mask assembler or a community support counselor?: No Extracted from:Title: Miguel KULKARNI #2 Author: MARU ALVARENGA NP Date: 01/09/21 1.?ASSESSMENT, POST-DEPLOYMENT, DOCUMENTED ON [id number] Matheus #2 reviewed with in person.? No post-deployment health issues or concerns identified.? He is an at risk drinker (AUDIT-C Score 6; CAGE? questions negative), receptive to BRIEF intervention on alcohol reduction for health and career reasons.? He does not endorse depression, PTSD, critical stressors, emotional problems or SI/HI.? His brief MSE is WNL.? No further action is needed at this time. Ordered: Administration,Pt-[facility] [address] ? Addendum by MARU ALVARENGA NP on January 09, 2021 14:24:02 PDT POST DEPLOYMENT HEALTH ASSESSMENT (PDHA) - [id number] DEC 2014 ? Last Name: NILDA First Name: MAC Social Security Number: [id number] Date of : Gender: Male Service Branch: [...] this time. ? Provider's Name: TANIKA ENGEL, HEAT SEALING MACHINE OPERATOR Date: 1.? Address concerns identified [...] ? 8.? Self-reported history of prescription or rwdw-daz-ikdvlof medications as described on deployer question 13. [...] watchful or easily startled? No 15. d. [place] numb or detached from others, activities, or [...] like to schedule a visit with a gas mask assembler or a community support counselor?: No Extracted from:Title: SHAD #1 Author: MARU ALVARENGA WHNP Date: 03/14/20 1.?ASSESSMENT, PRE-DEPLOYMENT, DOCUMENTED ON RR2950 DRHA #1, most recent PHA (Jun 2019), [...] Maintenance, Route to [facility] [Not filled] Administration,Pt-[facility] [address] ? Addendum by MARU ALVARENGA on March 14, 2020 09:06:11 PST PRE-DEPLOYMENT HEALTH ASSESSMENT ([id number] DEC 2014) ? 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 Medical assessment/disposition comments: ? ? Summary of provider's identified concerns needing referral:? None identified Provider's Name: TANIKA ENGEL, HEAT SEALING MACHINE OPERATOR Date: 1.? Address concerns identified [...] watchful or easily startled? No 11. d. [place] numb or detached from others, activities, or [...] Information Make an appointment with your PCM or?BHOP?human performance consultant? Appointment?Line: [phone]? [facility] Portal:?[email or web address] ?Contact the Health Promotion Office for additional information and resources Health Promotion Office:[phone] ? Local Resource Options ??Medical?Group ?-??Primary Supervisor Electron Tube Processing (PCM) -??Behavioral Health Optimization (BHOP) -??Health?Promotion Office ? Additional Resources ? -??UCANQUIT2 -???[email or web address].Hipbone.org -??www.Smokefree.gov -??www.cdc.gov/tobacco -??www.SRHD.org ? ?? Extracted from:Title: Office Clinic Note Author: COLE KAREN FIOR Date: 06/21/19 1.?EXAM/ASSESSMENT, OCCUPATIONAL, ACTUARIAL MATHEMATICIAN PERIODIC HEALTH ASSESSMENT (PHA) Virtual MHA was [...] at this time. ? ? ? 04/03/[address] [place] [address] Functional Status Combined list of recent functional and cognitive assessments recorded at Department of Defense and Veterans Affairs (VA).VA Functional [place] Measurement (FIM) Scale: 1 = Total Assistance (Subject = 0% +), 2 = Maximal Assistance (Subject = 25% +), 3 = Moderate Assistance (Subject = 50% +), 4 = Minimal Assistance (Subject = 75% +), 5 = Supervision, 6 = Modified Moul[place] (Device), 7 = Complete [place] (Timely, Safely). Assessment Date/Time Source Assessment Type Assessment Skill Assessment Score Assessment Details No data available for this section
== END 2024-03-26 09:47 | disposition home or self-care (01) ==
PROVIDERS: Emergency Provider Nurse Practitioner Family; PCP Nurse Practitioner Family
DX: B34.9 Viral infection, unspecified (principal); J06.9 Acute upper respiratory infection, unspecified; J02.9 Acute pharyngitis, unspecified; Z20.822 Contact with and (suspected) exposure to COVID-19; I10 Essential (primary) hypertension
CPT/HCPCS: 87081; 87426; 87804; 87880; 99213; G0463

== ENCOUNTER 2024-04-28 13:21 | Emergency (ER) | payer OTHER, SELFPAY ==
--- OUTSIDE RECORDS SUMMARY | 2024-04-28 13:23 | XMS_ITS | Clinical Summary ---
Author Organization [facility] [employer] Address [address] [place] [address] Care Team Providers Care Small Business Consultant Name Role Phone Josselin Castle MD Unavailable Abby Sanchez MD Primary Care Provider [phone] Source Comments [facility],non-owned Affiliates and Associated Physician Practices is amultiple site organization consisting of ambulatory clinics and hospital sitesin [place], [place], [place] and [place]. This disclosure is being madepursuant to the Care Everywhere program and may not contain all information available regarding this patient. Last updated 17.[facility] [employer] Allergies Active Allergy Reactions Criticality Noted Date Comments Amoxicillin Rash Low 06/17/2011 Medications Be aware that medications may not be up to date on this document. Always verify current medications with the patient. No known medications Active Problems Problem Noted Date Diagnosed Date BMI (body mass index), pedia tric, 85% to less than 95% for age 1012/26/2014 Anxiety 10/22/2013 Elevated blood pressure read ing without diagnosis of hypertension 10/22/2013 Immunizations Name Administration Dates Next Due DTaP VACCINE IM (6wk-6yrs) 06/29/2005,,06/23/2000,04/20,02/17/2000 HEP B VACCINE, PED/ADOL 01/20/2016(Defer red: Other - initial series considered valid according to Red Book),09/29/2000,01/18/2000,1999 HIB BOOSTER 06/30/2001, 1,04/20/2000,02/16 INFLUENZA VACCINE 01/06/2009 INFLUENZA VACCINE, QUADR. (F LUZONE; FLULAVAL; FLUARIX; AFLURIA QUADRIVALENT; 6MO+), 0.5 ML (IIV4) 12/24/2014 MENINGOCOCCAL CONJUGATE (MCV4P) 01/20/2016,08/16 MMR 06/29/2005,12/24/2000 PNEUMOCOCCAL CONJ, PEDS 01/08/2002,12/24,06/23/2000,04/20 POLIO IPV 06/29/2005, 1,04/20/2000,02/16 PPD 06/29/2005,12/24/2000 TDAP (7yrs+) 08/17/2011 VARICELLA 10/22/2013,03/25/2001 Social History Tobacco Use Types Packs/Day Years Used Date Smoking Tobacco: Never Smokeless Tobacco: Never Alcohol Use Standard Drinks/Week Comments Not Asked 0 (1 standard drink = 0.6 oz pur e alcohol) Sex and Gender Information Value Date Recorded Sex Assigned at Not on file Gender Identity Not on file Sexual Orientation Not on file Last Filed Vital Signs Vital Sign Reading Time Taken Comments Blood Pressure 140/66 01/20/2016 3:24 PM CDT Pulse 64 04/27/2014 9:44 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 Temperature 37.3 ??C (99.2 ??F) 12/27/2017 11:15 AM C DT Respiratory Rate - - Oxygen Saturation - - Inhaled Oxygen Concentration - - Weight 90.3 kg (199 lb) 12/27/2017 11:15 AM CDT Height 177.2 cm (5' 9.75 ) 01/20/2016 2:50 PM CD T Body Mass Index - - Plan of Treatment Health Maintenance Due Date Last Done Comments HIV SCREENING 12/17/2014 HPV VACCINE (1 - Male 3-dose series) 12/17/2014 HEPATITIS C SCREENING 12/13/2017 DTAP/TDAP/TD VACCINES (7 - Td or Tdap) 08/16/2021 08/17/2011, 06/29/2005, 06/30/2001, Additional history exists COVID-19 VACCINE (1 - season) 2023 INFLUENZA VACCINE (#1) 2023 12/24/2014, 2008 DEPRESSION SCREENING 03/28/2024 ZOSTER VACCINE (1 of 2) 12/17/2049 HEPATITIS B VACCINE Completed 09/29/2000, 01/18/2000, 1999 HIB VACCINE Completed 06/30/2001, 05/27, 04/20/2000, Additional history exists PNEUMOCOCCAL VACCINE Completed 01/08/2002, 12/24/2000, 06/23/2000, Additional history exists MENINGOCOCCAL VACCINE Completed 01/20/2016, 012 MENINGOCOCCAL (Group B) VACCINE Aged Out No longer eligible based on patient's age to complete this topic Goals Goal Patient Goal Type Associated Problems Recent Progress Patient-Stated? Author Exercise 3X per week (30 min per time) Exercise On track( 11:15 AM CDT) Sussy Edmonds RN Note: Caring for Your Overweight Child Get Moving: ? ? It is recommended that children and teens get physical activity for at least 1 hour per day on most (or better yet, all) days of the week. That may sound like a lot, especially if your child is not getting any physical activity now. But physical activity means more than exercise. It can mean playing games in the backyard, or washing the car. It can mean picking up leaves, or walking the dog. Add the healthy habit of physical activity to your family? s schedule. ? ? When children take off weight through dieting alone, 80 percent of the loss is from fatty tissue and 20 percent is from muscle. Adding weight-resistance training to an exercise routine preserves the muscle tissue. Virtually every ounce dropped comes from fat. Once an adolescent meets his goal, regular exercise is essential for maintaining the desired weight. Where can I go for more information? [place] [employer] ( ) www.aap.org HealthyChildren.org www.healthychildren.org U.S. Department of Health and Human Services www.hhs.gov Website and free downloadable linh for smartphones: http://www.[employer]/ Use safety retraint in car Lifestyle On track( 11:15 AM CDT) Sussy Edmonds RN Care Teams Small Business Consultant Relationship Specialty Start Date End Date Josselin Castle MD PCP - Pediatrics 01/30/09 Abby Sanchez MD PCP - General Pediatrics 01/03/14
--- OUTSIDE RECORDS SUMMARY | 2024-04-28 13:23 | XMS_ITS ---
Author Organization Unknown Medications Medication Instructions Effective Dates (start - stop) Status ketoconazole 20 MG/ML Topica l Cream - Completed losartan potassium 25 MG Ora l Tablet - Completed sertraline 25 MG Oral Tablet [id number] 0:00:00Z - Completed clindamycin 0.01 MG/MG Topic al Gel - Completed doxycycline hyclate 100 MG O ral Capsule - Completed losartan potassium 25 MG Ora l Tablet - Completed Patient Care team information Name Category Status Period Participants - - Proposed period not known -
--- OUTSIDE RECORDS SUMMARY | 2024-04-28 13:23 | XMS_ITS | Patient Health Summary ---
Author Organization [facility] Address [address] [place] [address] Care Team Providers Care Dairy Bar Manager Name Role Phone Josselni Castle MD Unavailable Abby Sanchez MD Primary Care Provider [phone] Note from [facility],non-owned Affiliates and Associated Physician Practices is amultiple site organization consisting of ambulatory clinics and hospital sitesin [place], [place], [place] and [place]. This disclosure is being madepursuant to the Care Everywhere program and may not contain all information available regarding this patient. Last updated 17.[facility] Allergies * Amoxicillin(Rash) -Low Criticality Medications Be aware that medications may not be up to date on this document. Always verify current medications with the patient. No known medications Active Problems Problem Noted Date Diagnosed Date BMI (body mass index), pedia tric, 85% to less than 95% for age 1012/26/2014 Anxiety 10/22/2013 Elevated blood pressure read ing without diagnosis of hypertension 10/22/2013 Immunizations * DTaP VACCINE IM (6wk-6yrs)(Given 06/29/2005, 06/30/2001, 06/23/2000, 04/20/2000, 02/17/2000) * HEP B VACCINE, PED/ADOL(Given 09/29/2000, 01/18/2000, 1999) * HIB BOOSTER(Given 06/30/2001, 06/23/2000, 04/20/2000, 02/17/2000) * INFLUENZA VACCINE(Given 01/06/2009) * INFLUENZA VACCINE, QUADR. 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 Temperature 37.3 ??C (99.2 ??F) 12/27/2017 11:15 AM C DT Respiratory Rate - - Oxygen Saturation - - Inhaled Oxygen Concentration - - Weight 90.3 kg (199 lb) 12/27/2017 11:15 AM CDT Height 177.2 cm (5' 9.75 ) 01/20/2016 2:50 PM CD T Body Mass Index - - Procedures * URINALYSIS MICROSCOPIC ONLY REFLEXED(Performed 01/27/2017) Performed for Dysuria * URINALYSIS W/MICROSCOPIC NO CULTURE(Performed 01/27/2017) Performed for Dysuria * CULTURE URINE(Performed 01/27/2017) Performed for Dysuria * CHLAMYDIA + GC AMPLIFIED PROBE(Performed 01/27/2017) Performed for Dysuria * URINALYSIS - POINT OF CARE(Performed 01/27/2017) Performed for Dysuria * URINALYSIS MICROSCOPIC ONLY REFLEXED(Performed 06/04/2015) Performed for Dysuria * URINALYSIS REFLEX MICROSCOPIC REFLEX CULTURE(Performed 06/04/2015) Performed for Dysuria * URINALYSIS - POINT OF CARE(Performed 06/04/2015) Performed for Dysuria * DERMATOPATHOLOGY(Performed 10/29/2013) * CULTURE STREP GROUP A(Performed 02/15/2013) Performed for Acute pharyngitis * STREP A SCREEN - POINT OF CARE (AMB)(Performed 02/15/2013) Performed for Acute pharyngitis * STREP A SCREEN - POINT OF CARE (AMB)(Performed 05/12/2012) Performed for Streptococcal pharyngitis * XR HIP RIGHT 2VW OR MORE(Performed 12/13/2011) Performed for Right thigh pain * XR FEMUR RIGHT 2VW(Performed 12/13/2011) Performed for Right thigh pain * STREP A SCREEN - POINT OF CARE (AMB)(Performed 06/17/2011) Performed for Acute pharyngitis * STREP A SCREEN - POINT OF CARE (AMB)(Performed 04/20/2010) Performed for Streptococcal sore throat * CULTURE AEROBIC+GRAM STAIN(Performed 06/24/2009) Performed for Acute Pharyngitis, Vomiting Alone * STREP A SCREEN - POINT OF CARE (AMB)(Performed 06/24/2009) Performed for Acute Pharyngitis, Vomiting Alone Results * URINALYSIS MICROSCOPIC ONLY REFLEXED (01/27/2017 12:59 PM CDT) Only the most recent of2 resultswithin the time period is included. WBC UA 0-5 0 - 5 /hpf [facility] ACCOUNT BILL RBC UA 0-2 0 - 2 /hpf [facility] ACCOUNT BILL Epithelial Cells (non renal) None seen 0 - 10 /hpf [facility] ACCOUNT BILL Epithelial Cells (renal) NOT NEEDED [facility] ACCOUNT BILL Comment:Ancillary determined the test is not needed Casts ua NOT NEEDED [facility] ACCOUNT BILL Comment:Ancillary determined the test is not needed Casts UA NOT NEEDED [facility] ACCOUNT BILL Comment:Ancillary determined the test is not needed Crystals UA NOT NEEDED [facility] ACCOUNT BILL Comment:Ancillary determined the test is not needed Crystals UA NOT NEEDED [facility] ACCOUNT BILL Comment:Ancillary determined the test is not needed Mucus UA Present Not Estab. [facility] ACCOUNT BILL Bacteria UA None seen None seen/Few [facility] ACCOUNT BILL Yeast UA NOT NEEDED [facility] ACCOUNT BILL Comment:Ancillary determined the test is not needed Trichomonas UA NOT NEEDED [facility] ACCOUNT BILL Comment:Ancillary determined the test is not needed Comment Urine NOT NEEDED [facility] ACCOUNT BILL Comment:Ancillary determined the test is not needed 01/27/2017 12:5 9 PM CDT 01/27/2017 Narrative Resulting Agency Comment [facility] [place] [address] ??[facility] [phone] Cheo Huerta DO LAB - URINALYSI S ORDERABLES [facility] ACCOUNT BILL [address] [place] [address] * URINALYSIS COMPLETE W MICROSCOPIC (01/27/2017 12:59 PM CDT) Specific [place] UA 1.024 1.005 - 1.030 [facility] ACCOUNT BILL pH UA 5.5 5.0 - 7.5 [facility] ACCOUNT BILL Color UA Yellow Yellow [facility] ACCOUNT BILL Appearance Clear Clear [facility] ACCOUNT BILL Leukocyte UA Negative Negative [facility] ACCOUNT BILL Protein UA Negative Negative/Tra ce [facility] ACCOUNT BILL Glucose UA Negative Negative [facility] ACCOUNT BILL Ketone UA Negative Negative [facility] ACCOUNT BILL Occult Blood Urine Negative Negative [facility] ACCOUNT BILL Bilirubin UA Negative Negative [facility] ACCOUNT BILL Urobilinogen 0.2 0.2 - 1.0 mg/dL [facility] ACCOUNT BILL Nitrite UA Negative Negative [facility] ACCOUNT BILL Microscopic Examination Urine [facility] ACCOUNT BILL Comment:Microscopic follows if indicated. Microscopic Examination Urine See below: [facility] ACCOUNT BILL Comment:Microscopic was gaby cated and was performed. Urine URINE / Unknown 01/27/2017 1 2:59 PM CDT 01/27/2017 Narrative Resulting Agency Comment [facility] [place] [address] ??[facility] [phone] Cheo Huerta DO LAB - URINALYSI S ORDERABLES [facility] ACCOUNT BILL [address] [place] [address] * CHLAMYDIA + GC AMPLIFIED PROBE (01/27/2017 12:59 PM CDT) Chlamydia MARGARITA Urine Negative Negative [facility] ACCOUNT BILL GC MARGARITA Urine Negative Negative [facility] ACCOUNT BILL Microbiology URINE / Unknown 01/27/2017 1 2:59 PM CDT 01/27/2017 Narrative Resulting Agency Comment [facility] [place] [address] [place] ??[place] [phone] Cheo Huerta DO LAB - MICROBIOL OGY ORDERABLES [facility] ACCOUNT BILL [address] [place] [address] * CULTURE URINE (01/27/2017 12:59 PM CDT) Urine Culture Routine Final report [facility] ACCOUNT BILL Result 1 No growth [facility] ACCOUNT BILL Urine URINE SPECIMEN FROM URINARY BLADDER / Unknown 01/27/2017 12:59 PM CDT 01/27/2017 Narrative Resulting Agency Comment [facility] [place] [address] [facility] ??[facility] [phone] Cheo Huerta DO LAB - MICROBIOL OGY ORDERABLES Performing Organization Address City/[facility]/ZIP Co de Phone Number [facility] ACCOUNT BILL [address] [place] [address] * (ABNORMAL) URINALYSIS - POINT OF CARE (01/27/2017) Only the most recent of2 resultswithin the time period is included. Clarity UA POCT clear Color UA POCT dark bernadette Leukocyte UA negative Negative Nitrite UA POCT negative Negative Urobilinogen UA 0.1 0.1 - 1.0 Protein UA POCT negative Negative pH UA 5.0 5.0 - 8.0 pH units Blood UA trace Negtive Specific [place] UA POCT 1.025 1.002 - 1.030 Ketone UA negative Negative Bilirubin UA POCT negative Negative Glucose UA negative Negative Urine URINE / Unknown 01/27/2017 Cheo Huerta DO LAB - POINT OF CARE ORDERABLES * URINALYSIS ROUTINE W/REFLEX TO CULTURE (06/04/2015 11:44 AM PRENATAL GENETIC COUNSELOR) Specific [place] UA 1.026 1.005 - 1.030 [facility] ACCOUNT BILL pH UA 6.0 5.0 - 7.5 [facility] ACCOUNT BILL Color UA Yellow Yellow [facility] ACCOUNT BILL Appearance Clear Clear [facility] ACCOUNT BILL Leukocyte UA Negative Negative [facility] ACCOUNT BILL Protein UA Negative Negative/Tra ce [facility] ACCOUNT BILL Glucose UA Negative Negative [facility] ACCOUNT BILL Glucose Reflex NOT NEEDED [facility] ACCOUNT BILL Comment:Ancillary determined the test is not needed Ketone UA Negative Negative [facility] ACCOUNT BILL Occult Blood Urine Negative Negative [facility] ACCOUNT BILL Bilirubin UA Negative Negative [facility] ACCOUNT BILL Urobilinogen 0.2 0.2 - 1.0 mg/dL [facility] ACCOUNT BILL Nitrite UA Negative Negative [facility] ACCOUNT BILL Microscopic Examination Urine [facility] ACCOUNT BILL Comment:Microscopic follows if indicated. Microscopic Examination Urine See below: [facility] ACCOUNT BILL Comment:Microscopic was gaby cated and was performed. Urinalysis Reflex [facility] ACCOUNT BILL Comment:This specimen will n ot reflex to a Urine Culture. Urine specimen (specimen) URINE SPECIMEN OBTAINED BY CLEAN CATCH PROCEDURE / Unknown 06/04/2015 11:44 AM PRENATAL GENETIC COUNSELOR 06/04/2015 9:08 PM PRENATAL GENETIC COUNSELOR Narrative Resulting Agency Comment [facility] [address] ??[facility] [phone] Abby Sanchez MD LAB - URINALYSIS ORD ERABLES [facility] ACCOUNT BILL * PATHOLOGY TISSUE FOR DERMATOLOGY (10/29/2013 12:00 AM CDT) Result CASE: [id number] PATIENT: MAC MUNGUIA PATHOLOGIC DIAGNOSIS: Left upper lip: COMPOUND MELANOCYTIC NEVUS CLINICAL DATA: Nevus. GROSS DESCRIPTION: Received is one formalin filled container labeled with the patient's name and designated left upper lip. The specimen consists of a shave biopsy measuring 3x3x1 mm. Jar 0. MICROSCOPIC DESCRIPTION: There are nests of melanocytes at the dermal-epiderm al junction and within the dermis. Electronically signed out by Mary Peirre M.D., PhD. 10/31/2013 1:27:49PM [facility] Comment: Performed at: Dermatopathology Laboratory [facility] Department of Dermatology [address] [place] [address], 5[address] [place] [address] Phone number: [phone] FAX: [phone] 10/29/2013 10/30/2013 Hammad Perez LAB - PATHOLOGY/CYTO LOGY ORDERABLES [facility] [address] [facility]. 5th Floor Lab [address] [phone] * CULTURE STREP GROUP A (02/15/2013 10:44 AM PRENATAL GENETIC COUNSELOR) Beta-Strep Culture, Group A Only Negative [facility] ACCOUNT BILL Miscellaneous samples (specimen) ENTIRE THROAT (SURFACE REGION OF NECK) / Unknown 02/15/2013 10:44 AM PRENATAL GENETIC COUNSELOR 02/15/2013 8:39 PM PRENATAL GENETIC COUNSELOR Narrative Resulting Agency Comment [facility] [place] [id number] [facility] ??[facility] [phone] Josselin Castle MD LAB - MICROBIOLOGY O RDERABLES Performing Organization Address City/[facility]/ZIP Co de Phone Number [facility] ACCOUNT BILL * STREP A SCREEN - POINT OF CARE (AMB) (02/15/2013 10:43 AM PRENATAL GENETIC COUNSELOR) Only the most recent of5 resultswithin the time period is included. Strep A Rapid POCT Negative Negative Strep A Internal Control NEGATIVE - POSITIVE Throat swab (specimen) ENTIRE THROAT (SURFACE REGION OF NECK) / Unknown Josselin Castle MD LAB - POINT OF CARE ORDERABLES * XR FEMUR 2 VW RIGHT (12/13/2011) Anatomical Region Laterality Modality Lower Extremity Other Josselin Castle MD DIAGNOSTIC IMAGING O RDERABLES * XR HIP RIGHT 2+ VW MP (12/13/2011) Anatomical Region Laterality Modality Pelvis, Lower Extremity Other Josselin Castle MD DIAGNOSTIC IMAGING O RDERABLES * CULTURE ROUTINE (06/24/2009 1:38 PM CDT) Aerobic Bacterial Culture Final report [facility] ACCOUNT BILL Result 1 [facility] ACCOUNT BILL Comment:Routine respiratory brendon ENTIRE PHARYNX / Unknown 06/24/2009 1:38 PM CDT 06/24/2009 9:58 PM CDT Narrative Resulting Agency Comment [facility] [address] ??[facility] [phone] Josselin Castle MD LAB - MICROBIOLOGY O RDERABLES [facility] ACCOUNT BILL Care Teams Dairy Bar Manager Relationship Specialty Start Date End Date Josselin Castle MD PCP - Pediatrics 01/30/09 Abby Sanchez MD PCP - General Pediatrics 01/03/14
--- OUTSIDE RECORDS SUMMARY | 2024-04-28 13:23 | XMS_ITS | Continuity of Care Document ---
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., [facility] Discont inued 01/09/2021 8.1 0128C-9 2ND MED [facility] azithromyci n 500 mg oral tablet 4 tab(s), Oral, Once, # 4 tab(s), 0 total refill(s ), Priteshia n Stop, 10/01/22 1:40:46 PM CDT, Pharmacy : [facility] Oral (given by mouth) Complet ed [...] total refill(s ), 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, 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, [facility] Oral (given by mouth) Complet ed 04/13/2020 60.0 0128C-9 2ND [facility] Colace 100 mg oral capsule 1 cap(s), Oral, BID, PRN constipa tion, # 100 cap(s), 1 total refill(s ), Maintena nce, Pharmacy : [facility] Oral (given by mouth) Ordered 100.0 0128C-9 2ND [facility] diazePAM 10 mg auto injector 10 mg, IntraMus cular, As Directed , 10 mg, IntraMus cular, As Directed , Administ er autoinje ctor IM as directed by thedenise wilder, # 1 EA, 0 total refill(s ), Maintena nce, Route [facility] IntraM uscula r (in a muscle ) Discont inued 01/09/2021 1.0 0128C-9 2ND [facility] doxycycline hyclate 100 mg oral capsule 1 cap(s), Oral, BID, For treatmen t of suspecte d chlamydi a infectio n., X 7 days, # 14 cap(s), 0 total refill(s ), Acute, 10/01/22 2:44:00 PM CDT, Pharmacy : [facility] Oral (given by mouth) Discont inued [...] in-clini c RN administ ration. Expedite ., Pharmacy : [facility] Discont inued 10/01/2022 6.0 0128C-9 2ND MED [facility] levoFLOXaci n 500 mg oral tablet 1 tab(s), Oral, every 24 hr, X 10 days, # 10 tab(s), 0 total refill(s ), Acute, 10/11/22 2:45:00 PM CDT, Pharmacy : [facility] Oral (given by mouth) Complet ed 10/11/2022 10.0 0128C-9 2ND [facility] lidocaine 5% topical film 1 patch(es ), Topical, Daily, Leave on for up to 12 hours within a 24 hour period (12 hours on, 12 hours off), # 30 patch(es ), 3 total refill(s ), Maintena nce, Pharmacy : [facility] Topica l (on the skin) Discont inued 05/27/2022 30.0 0128C-9 2ND MED [facility] MiraLax oral powder for reconstitut ion See Instruct ions, Dissolve and drink 1 capful (17g) of powder in 4 to 8 ounces of liquid three times daily until complete bowel emptying occurs, then use as needed for constipa tion., # 510 g, 5 total refill(s ), Maintena mae, Pharmacy : [facility] Ordered 510.0 0128C-9 2ND MED GRP-ALYSIA [...] refill(s ), Acute, 10/08/22 1:19:00 PM CDT, Pharmacy : [facility] Oral (given by mouth) Complet ed 10/08/2022 14.0 0128C-9 2ND [facility] potassium iodide 130 mg oral tablet 1 tab(s), Oral, Daily, PRN while protecti on is needed, To take only at the discreti on of the theater commande r., X 14 days, # 14 tab(s), 0 total refill(s ), Acute, Route to [facility] Oral (given by mouth) Complet [...] directed under the directio n of the commande r, # 42 EA, 0 total refill(s ), Maintena nce, Route to [facility] Discont inued 01/09/2021 42.0 0128C-9 2ND [facility] Robaxin 500 mg oral tablet 2 tab(s), Oral, QID, X 7 days, # 56 tab(s), 0 total refill(s ), Acute, Pharmacy : [facility] Oral (given by mouth) Complet ed [...] (disorder) active 0 [employer], [place] ([facility] Immunizations Combined list of available immunizations from the Department of Defense and Veterans Affairs facilities. Immunization Series Date Given Administered By Site Reaction Lot Number CVX Code Drug Kettle Loader Status Comments Source COVID Vaccine Pfizer 2020 NINONDALUSONG Shoul sharon, right (delt oid) [id number] PFIZER complet ed COVID Vaccine Pfizer 12/30/20 Given 0128C-9 2ND [facility] influenza virus vaccine, inactivated 2020 BRIANPLARA Shoul sharon, left (delt oid) [id number] 141 [facility] influenza virus vaccine, inactivat ed 12/09/20 Given 0128C-9 2ND [facility] COVID Vaccine Pfizer 2020 BRIANPLARA Shoul sharon, right (delt oid) [id number] PFIZER complet ed COVID Vaccine Pfizer 12/09/20 Given 0128C-9 2ND [facility] typhoid vaccine, parenteral 2019 BRIANPLARA Shoul sharon, right (delt oid) [id number] sanofi pasteur complet ed typhoid vaccine, parentera l 03/14/20 Given 0128C-9 2ND [facility] anthrax vaccine 2019 BRIANPLARA Shoul sharon, left (delt oid) [id number] [employer]. complet ed anthrax vaccine 03/14/20 Given 0128C-9 2ND [facility] influenza virus vaccine, inactivated 2019 KYLEMQUINN Shoul sharon, right (delt oid) [id number] [employer] complet ed influenza virus vaccine, inactivat ed 02/14/20 Given 0128C-9 2ND [facility] human papillomaviru s vaccine 2019 JOELLENNATALYA Bettencourt sharon, left (delt oid) [id number] 165 Merck & Company Inc complet ed human papilloma virus vaccine 02/14/20 Given 0128C-9 2ND [facility] GRP-ALYSIA RCHILD human papillomaviru s vaccine 2019 SINDYYUMIKO [place]tencourt sharon, left (delt oid) [id number] 165 [employer]ck & Company Inc complet ed human papilloma virus vaccine 10/04/19 Given 0128C-9 2ND [facility] human papillomaviru s vaccine 2019 BRIANPLSHRUTHI Rut sharon, left (delt oid) [id number] 165 Merck & Company Inc complet ed human papilloma virus vaccine 07/19/19 Given 0128C-9 2ND [facility] GRP-ALYSIA RCHILD hepatitis A-hepatitis B vaccine 2019 SHERITACONSTANTINO Bettencourt sharon, left (delt oid) [id number] GlaxoSmithKli ne complet ed hepatitis A-hepatit is B vaccine 07/19/19 Given 0128C-9 2ND [facility] GRP-ALYSIA RCHILD influenza, injectable, quadrivalent- pf 2018 [id number] 150 Seqirus complet ed influenza , injectabl e, quadrival ent-pf 01/22/19 Given 0128C-9 2ND [facility] GRP-ALYSIA RCHILD hepatitis A-hepatitis B vaccine 2018 [id number] 104 GlaxoSmithKli ne complet ed hepatitis A-hepatit is B vaccine 01/22/19 Given 0128C-9 2ND [facility] GRP-ALYSIA RCHILD hepatitis A-hepatitis B vaccine 2018 [id number] 104 GlaxoSmithKli ne complet ed hepatitis A-hepatit is B vaccine 12/06/18 Given 0128C-9 2ND [facility] GRP-[facility]YSIA RCHILD adenovirus vaccine, live 2018 [id number] 143 Teva Pharmaceutica ls complet ed adenoviru s vaccine, live 12/01/18 Given 0128C-9 2ND [facility] GRP-ALYSIA RCHILD tetanus, diphtheria, acellular pertu is 2018 [id number] 115 GlaxoSmithKli ne complet ed tetanus, diphtheri a, acellular pertussis 12/01/18 Given 0128C-9 2ND MED [facility] meningococcal A,C,Y,W-135 (MCV4P) 2018 [id number] 114 sanofi pasteur complet ed meningoco ccal A,C,Y,W-1 35 (MCV4P) 12/01/18 Given 0128C-9 2ND [facility] poliovirus vaccine, inactivated 2018 [id number] sanofi pasteur complet ed polioviru s vaccine, inactivat ed 12/01/18 Given 0128C-9 2ND [facility] Results Combined list of recent [...] MED GRP-ALYSIA [facility]CHILD Urinalysi s UA Spec [place] 1.010 1.006 - 1.029 10/01 N 0128C-9 [...] Neg (09/17/22 2:04 PM) 09/17 N 0128C-[address] [place] [address] GRP-ALYSIA RCHILD Urinalysi s UA Mucous Neg (09/17/22 2:04 PM) 09/17 N 0128C-9 2ND MED [facility] Urinalysi s UA Clarity Clear (09/17/22 2:04 PM) 09/17 N 0128C-[address] [place] [address] GRP-ALYSIA RCHILD Urinalysi s UA Appear Clear (09/17/22 2:04 PM) 09/17 N 0128C-[address] [place] [address] GRP-ALYSIA RCHILD Urinalysi s UA Bili Negative (09/17/22 2:04 PM) 09/17 N 0128C-[address] [place] [address] GRP-ALYSIA RCHILD Urinalysi s UA Blood Trace-Ly sed *ABN* (09/17/22 2:04 PM) 09/17 A 0128C-9 2ND [facility] GRP-ALYSIA RCHILD Urinalysi s UA Color Yellow (09/17/22 2:04 PM) 09/17 N 0128C-[address] [place] [address] GRP-ALYSIA RCHILD Urinalysi s UA Glucose Negative mg/dL 09/17 N 0128C-[address] [place] [address] GRP-ALYSIA RCHILD Urinalysi s UA Ketones 15 mg/dL 09/17 A 0128C-9 2ND [facility] GRP-ALYSIA RCHILD Urinalysi s UA Leuk Esterase Negative (09/17/22 2:04 PM) 09/17 N 0128C-9 2ND MED [facility] Urinalysi s UA Nitrite Negative (09/17/22 2:04 PM) 09/17 N 0128C-[address] [place] [address] GRP-ALYSIA RCHILD Urinalysi s UA pH 7.0 4.6 - 8.0 09/17 N 0128C-9 2ND MED [facility]P-[facility] Urinalysi s UA Protein Negative mg/dL 09/17 N 0128C-9 2ND MED [facility] Urinalysi s UA Spec [place] 1.015 1.006 - 1.029 09/17 N 0128C-9 2ND MED [facility]P-[facility] Urinalysi s UA Urobilinoge n 0.2 E.U./dL 09/17 N 0128C-9 2ND MED [facility] Urinalysi s UA Micro Ind? Indicate d *ABN* (09/17/22 2:04 PM) 09/17 A 0128C-9 2ND MED [facility] Infectiou s Disease HIV-1/O/2.E PI [...] Prevention' s HIV diagnostic algorithm. Refer to [facility] Lab Guide for additional information : [email or web address]/ [email or web address]/la [email or web address] x Testing performed by Nova vasquez. Performed by: Epidemiolog y Laboratory Service [facility] Bldg [address] [place] [address], [place] [address] 0128C-9 2ND MED GRP-ALYSIA RCHILD Miscellan eous Sendouts Repository Sample.EPI RECEIVED 04/06 Result Comment: INTERPRETAT ION(S): Performed by: Epidemiolog y Laboratory Service [facility] [address] [place] [address], [place] [address] 0128C-9 2ND MED GRP-[facility] Infectiou s Disease Strep A, Rapid Neg (02/25/22 3:14 PM) 02/25 N 0128C-9 2ND MED [facility]P-[facility] Molecular Infectiou s Disease SARS-CoV-2 [...] for this test is supported by the Hanging Flags Decorator of Health and Human Service s (HHS [...] g (12/08/20 10:46 AM) 12/08 N 0128C-9 [facility] MED GRP-ALYSIA RCHILD Miscellan eous Sendouts Repository Sample.EPI RECEIVED 12/08 Result Comment: INTERPRETAT ION(S): Performed by: Epidemiolog y Laboratory Service [facility] [address] [address] [place] [address] 0128C-9 2ND MED GRP-[facility] Molecular Infectiou s Disease Reason for Test? Diagnosi s (05/19/20 8:12 AM) 05/19 N 0128C-9 2ND MED [facility] Molecular Infectiou s Disease SARS-CoV-2 [...] for this test is supported by the [employer]anging Flags Decorator of Health and Human Service s (HHS [...] the test may no longer be used). 2ND MED [facility]P-[facility] Infectiou s Disease HIV-1/O/2.E PI [...] Prevention' s HIV diagnostic algorithm. Refer to [facility] Lab Guide for additional information : [email or web address]/diamond [email or web address]/[email or web address]/Kane jerry/Pages/lab _guide.aspx Testing performed by Nova vasquez. Performed by: Epidemiolog y Laboratory Service [facility] [address] [place] [phone] 127C-9 2ND MED GRP-[facility]YSIA RCHILD Miscellan eous Sendouts Repository Sample.EPI RECEIVED 03/14 Result Comment: INTERPRETAT ION(S): Performed by: Epidemiolog y Laboratory Service [facility] [address] [place] [address] [place] [address] 0128C-9 2ND [facility] GRP-ALYSIA RCMELD Vital Signs Combined list of inpatient and outpatient Vital Signs from Department of Defense and Veterans Affairs, ranging from 12 months to all on record, depending upon the facility. Vital Sign Value Date Comments Source Systolic Blood Pressure 138mm[Hg] 03/14/2020 16:52:00 0128C-92ND MED GRP-[facility] Diastolic Blood Pressure 85mm[Hg] 03/14/2020 16:52:00 0128C-92ND MED [facility] Mean Arterial Pressure, Calc 103mm[Hg] 03/14/2020 16:52:00 0128C-92ND M ED GRP-NUBIA Peripheral Pulse Rate 84bpm 03/14/2020 16:52:00 0128C-92ND MED [facility] Respiratory Rate 16br/min 03/14/2020 16:52:00 0128C-92ND MED [facility] Systolic Blood Pressure 119mm[Hg] 09/17/2022 20:13:00 0128C-92ND MED [facility] Diastolic Blood Pressure 75mm[Hg] 09/17/2022 20:13:00 0128C-92ND [...] ADM Date DC Date Status Disposition [place] [address](Hea ring Conservat ion, BMT) OUTPATIENT [id number] KAMILLA PINO 12/05 Released w/o Limitations [facility] [place] [address](H earing Conserv ation, BMT) [place] [address]([facility]) OUTPATIENT [id number] Notes Entered by: MIL PARK 06 Dec 2018 1159 ------- ------- ------- ------- -- Strep Prophyl VIVIAN clayton FRANSHESCA C 12/06 Released w/o Limitations [facility] [place] [address]([facility]) Theater Facility OUTPATIENT [id number] Theater Provider 08/08 Immediate Referral Theater Facilit [facility] Theater Facility OUTPATIENT [id number] Theater Provider 08/08 Released w/o Limitations Theater Fac[facility] Theater Facility OUTPATIENT [id number] Theater Provider 08/27 Released w/o Limitations Theater Facilit y Theater Facility OUTPATIENT [id number] Theater Provider 09/30 Sick at Home/Quarter s Theater Facilit y Theater Facility OUTPATIENT [id number] Theater Provider 09/30 Released w/o Limitations Theater Facilit y Procedures Combined list of: 1) Procedures from Department of Veterans Affairs facilities [facility], not all [place] non-surgical procedures are included; 2) All procedures from the Department of Defense facilities. Procedure Procedure Type Code Date Perfomer Comments Sour e THERAPEUTIC, PROPHYLACTIC, OR DIAGNOSTIC INJECTION (SPECIFY SUBSTANCE OR DRUG); SUBCUTANEOUS OR INTRAMUSCULAR 9 [facility] PURE TONE AUDIOMETRY (THRESHOLD); AIR ONLY 9 [facility] Threshold Audiogram (Pure Tone) Threshold Audiogram (Pure Tone) [address]96 KAMILLA PINO [facility] Physician Supervised Injection Intramuscular Antibiotic Physician Supervised Injection Intramuscular Antibiotic 98265 BOB PARK [facility] No data available for this section - iMICROQ ILD Social History Combined list of available smoking, tobacco, and other social history from Department of Defense and Veterans Affairs facilities. Social History Type Response Date Comment Sour e Smoking Status Never (less than 100 in lifetime) 11/15/2019 0128C-92ND iMICROQCHILD Male 05/15/2019127C-92ND [facility] DxNUBIA This section is an empty social history section. [facility] Sexual Orientation - [place] MED [facility] DxNUB[facility] Gender identity 127C-92N D [facility] DxNUBIA Assessment and Plan Combined list of future [...] days,Instr:For treatment of suspected chlamydia infection., Pharmacy: [facility] [Not fille GC and [...] 2 tab(s) Oral BID,x7 days,PRN:fever/mild pain, Pharmacy: [facility] [Not filled] A total of?approximately 45?minutes were spent related to this encounter on day of service including medical history and record review; ordering of medications, tests, and procedures; face to face time in communication and counseling with patient, family and/or caregivers; and documentation in the electronic health record and other records as applicable. ? //SIGNED// Stevie Fletcher MD, IMAN, [facility] Family Medicine Physician Web Site Developer, [facility], [address] [place] [address] [employer], [place] [phone] ? Extracted from:Title: Office Clinic Note- Constipation [...] refill(s), Maintenance, 1 cap(s) Oral BID,PRN:constipation, Pharmacy: [facility] polyethylene glycol 3350(MiraLax oral [...] labs, imaging, other diagnostic testing via the [facility] Lean Startup Machine Patient Portal. ? ? //SIGNED// Stevie Fletcher MD, IMAN, [employer] Family Medicine Physician Web Site Developer, [facility], [address] [facility], [place] [phone] ? Extracted from:Title: SHPE/MHA Author: LEXUS HAIDER PA Date: 09/14/22 1.?Encounter for other specified special examinations -?No depression, anxiety, SI, HI, substance abuse, or concerns. - Reviewed SHPE with patient, all health issues discussed, no concerning issues at this time which would require immediate attention or prevent member from separation? - Member clear for separation from primary care standpoint? -? ? ?ASIMS Form completed ? - F/u PRN? 2.?Encounter for other general examination Reviewed [facility] MHA section and reviewed responses and new questions asked without need for immediate referral or direction to ED. ?No new specific concerns identified in past medical or family history when compared to the PHAQ. ?All information was updated?in MHA?as needed.? Completed provider portion of the MHA, any abnormalities were noted in the Provider [...] DUTY RESTRICTIONS:? ?[X]? None, fully qualified in AFUT;?[ ]? A 469 has been created with [...] resolved within 31-365 days);?[ ]? Referred to AMRO, for potential Code 37 and medical defect/condition requiring IRILO or MEB, IAW MARIA GUADALUPE 48-691)?[ ]? Code 81 ; Discussed this with patient who indicated understanding ? DO NOT ARM NOTIFICATION: (Applicable to [employer], when a medication or medical condition could impair their ability to carry/use a weapon)? ?[X]? None;?[ ]? A Do Not Arm Notification was made via phone call to the [employer] ([phone]) and the Arming Use of Force (AUoF) module in [facility] was completed, and a duty restriction was issued via an AF form 469, with the statement Do Not Arm in the comments section Total time spent from by Provider on floor/phone time, record review, PE, and education and plan: ? 30min ? CAPT LEXSU HAIDER PA-C [facility] [address] [place], [place] ? Extracted from:Title: cardiovascular tech - Abd Pain Male Author: SATNAM ZAVALA RN Date: 09/08/22 -Per [facility] Protocol 2020,?patient should be seen in [facility] within 2 weeks.? Patient scheduled with PCM [...] get after hours Urgent Care referral at [phone] ? Patient verbalized understanding and agreeable with [...] reviewed to include member s summary and biomass technician's Record Review section of PHAQ which [...] accomplished. Follow up?PRN. ? Maru Alvarenga, CTR, SIZER MACHINE [address] [facility]? [employer], [place]?Diagnosis: ?1. ?Encounter for other general examination ?Comment:?Ordered:??Brief Comm Tech-Based Svc, Virt, Phys, Est Pt; 5-10 Min Med Dis G2012; 05/27/2022 07:30:00 PST ? Administration,Pt-Foc [facility] [id number]; 05/27/2022 07:30:00 PST ?Diagnosis: ?2. ?Exposure to environmental pollution, occupational ?Comment:?Ordered:??Brief Comm Tech-Based Svc, Virt, Phys, Est Pt; 5-10 Min Med Dis G2012; 05/27/2022 07:30:00 PST ? Administration,Pt-Foc [facility] [id number]; 05/27/2022 07:30:00 PST ?Diagnosis: ?3. 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 Administration,Pt-[facility] [id number]; 05/27/2022 07:30:00 PST ? End of Orders ? ANNUAL PERIODIC HEALTH ASSESSMENT ? I. 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 Last Name: NILDA 2. First Name: MAC 3. Middle Name: SANDOR 4. Assessment Date: 5. : 6. Age: 21 7. Gender: M 8. DoD ID Number: [id number] 9. Service Branch: [employer] 10. 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 Status: Active Duty 12. 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 Duty Station/Location: [place] 15. UIC: [id number] 16. Is this your first Periodic Health Assessment (PHA)?: N 17. Are you enrolled in a secure messaging system with your health care provider?:? U ? 18. Current contact information: Preferred Method: Email 1 DSN: Day Time Phone: [phone] Night Time Phone: Email 1: [email or web address] Email 2: Address: [address] City: [place] State: [place] Zip Code: [address] ? 19. Point of contact who can always reach you: Name: MSgt Conway Phone 1: [phone] Phone 2: EMAIL: [email or web address] Address: City: State: Zip Code: ? II. DEPLOYMENT INFORMATION (DEP) 1. [ 1 ] Total number of deployments in the PAST 5 YEARS 2. [ [place] ] Primary country of last deployment 3. [ ] Date departed theater 4. [ N ] Are you going to deploy within the NEXT 120 DAYS? ? III. OCCUPATIONAL INFORMATION (OCC) 1? [ [id number] ] What is your occupational code 2. [...] easily startled? 6. d. [ No ] [place] numb or detached from others, activities, or your surroundings? 6. e. [ Not answered ] [place] guilt or unable to stop blaming yourself [...] like to schedule a visit with a manager of photography, mental health care provider, or a community [...] 8. [ Tylenol ] What prescriptions or ftgr-plc-batvkvc medications are you CURRENTLY taking for health [...] had a cholesterol check by a health care team coordinator scheduler within the PAST 5 YEARS? 13.a. In [...] any health concerns? ? XI. SEPARATION AND CUSTODIAL 1. [ Yes ] Are you planning to separate or retire within the next year from Active Duty or [place] Duty (activated for greater than 30 continuous days) OR do you intend to file a claim for disability compensation with the Veterans Benefits Administration? ? PART B. RECORD REVIEW AND RECOMMENDATIONS I. RECORD REVIEWER INFORMATION 1. Last Name: JESUS 2. First Name: NEO 3. Middle Name: 4. Service Branch: [employer] 5. Status: Active Duty 6. 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 EMAIL: [email or web address] 8. Facility: [facility] 9. Unit: [address] [place] [address] 10. Address: [address] 11. State: [facility]. Zip Code: [address] 13. 14. Date Record Review: ? II. MEDICAL SCREENING 1. [ ] Date of vessel crew member's most recent PHA 2. [ 5 feet 10 inches? ?Date: ] vessel crew member's most recently documented height 3. [ 187 pounds? Date: ] vessel crew member's most recently documented weight 4. [ 128/86? Date: ] vessel crew member's most recently documented blood pressure reading 5. [ No ] Does the vessel crew member have a history of abnormal blood pressure since their last PHA? 6. [ Yes ] Does the vessel crew member have a laboratory test of sickle cell trait documented in their permanent medical record? 7. [ No Cholesterol Test Documented ] What is the date of the vessel crew member's most recently documented cholesterol test? 9. [ lidocaine topical? ]? List of vessel crew member's active medications listed in their permanent medical record 10. [ Yes: lidocaine topical tylenol ] Is there a discrepancy between the active medication record review and the vessel crew member's self-reported list of medications? 11. [ hematuria feb 2022 ] List documented significant care the vessel crew member has received since their last PHA from a provider OUTSIDE the Health System 12. [ Yes: hematuria feb 2022 ] Is there a discrepancy between the vessel crew member's list of OUTSIDE care (from OTH5), and the OUTSIDE care found in the record? 13. [ urethral spasm mar 2022 ] List documented significant care the vessel crew member has received since their last PHA from a provider INSIDE the Health System 15. [ Not Answered ] Confirm that vaccine exemptions are listed in the medical record for each vaccine listed 16. [ No Discrepancies Noted ] Review available medical documentation of allergies and compare with vessel crew member responses. Document any discrepancies ? III. OCCUPATION-SPECIFIC EXAMINATIONS 2. [ ] When was the vessel crew member's most recently documented evaluation? ? IV. FAMILY HISTORY AND LIFESTYLE 1. [ Yes ]? Does the [id number] reflect the vessel crew member's reported family history? ? . DEPLOYMENT-RELATED HEALTH ASSESSMENTS 1. [ Yes ] Based on your check of records, does the vessel crew member have any due or overdue deployment health assessments which need to be completed with this PHA? ? VII. INDIVIDUAL MEDICAL READINESS 1. [ No ] Does the vessel crew member have an Assignment Limitation Code C? 3. [ Classification: 1 ] Most recently documented dental exam 4. [ Yes ] Is the vessel crew member current on all required immunizations in the immunization tracking system? 6. Does the vessel crew member have the following laboratory tests documented [...] need to be forwarded to the Health Janitor Supervisor completing PART C: ? ? Date Record Review Completed: PART C. HEALTH CARE PROVIDER I. MENTAL HEALTH ASSESSMENT (MHA) PROVIDER INFORMATION 1. Last Name: HERMELINDO 2. First Name: MARU 3. Middle Name: Mar 31. Service Branch: [employer] 5. 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 EMAIL: [email or web address] 8. Facility: [address] [place] [address] 9. Unit: [facility] 10. Address: [address] [place] [address] 11. State: [place] 12. Zip Code: [address] 13. Phone: [phone] 14. Date HCP Review initiated: ? 1.? [...] 3. Middle Name: Mar 31. Service Branch: [employer] 5. 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 EMAIL: 8. Facility: MEDICAL 9. Unit: [facility] 10. Address: [address] [place] [address] [employer] 11. State: [place] 12. Zip Code: [address] 13. Phone: [phone] 14. Date HCP Review initiated: ? IV. PERIODIC HEALTH ASSESSMENT PROVIDER RECOMMENDATIONS and REFERRALS 1. Provider concerns with this assessment: No issues or concerns identified ? V. SUMMARY AND COMMENTS 1. Additional information summarizing findings during the vessel crew member assessment: ? 2. Provider Comments: ? ? . INDIVIDUAL MEDICAL READINESS DISPOSITION DETERMINATION ? ? JAYDEN: Ready? ? DEN: Ready? ? IMM: Ready? ? LAB: Ready? ? ME: Ready ? ? IMR Status: Fully Medically Ready ? VII. 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 Reference [facility] 6490.07 ? 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 Date PHA Completed: ? END OF [id number] REPORT ? [facility] Review Summary ? [ No ] Does [...] conditions that dictate a referral to the [facility]? ? Active Medical Conditions:? 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 END OF [facility] SUMMARY 2.?Exposure to environmental pollution, occupational reported?hx of?exposure?to burn pits during deployment(s) to:? [place] and [place] 2020 ? -?does not endorse cardiopulmonary symptoms -?instructed to register on the [place] Airborne Hazards and Open Burn Pit Registry for tracking and receipt of updated health information -?download copy of intake questionnaire and bring to [facility] office for uploading into EHR ? [...] Acute, 2 tab(s) Oral QID,x7 days, Pharmacy: [facility] [Last filled 04/02/22] ? [...] further questions were asked. -I spent? 10-19?min. [id number] w/ pt. , greater than 50% in counseling/coordination of care. -No new DR/MR/FR/AUoF restriction. Not on flying status or PRP. Follow up?PRN. -Portions of this note were scribed by my certified medical records coder(s). I have verified the information and medical [...] ? AD ALDANA PA-C, Capt , [employer], BS Physician Clinic Mgr? Extracted from:Title: cardiovascular tech- Abdominal Pain and Back Pain Author: RICARDO PATEL RN Date: 03/16/22 -Per [facility] Protocol 2020,?patient advised ?to present to Urgent Care. Patient verbalized understanding and is agreeable to plan. Patient states they will go to?[facility] [address] Jody Rosado -Red flags signs and symptoms discussed to [...] get after hours Urgent Care referral at [phone] ? ? Patient verbalized understanding and agreeable with plan of care.? GIANFRANCO Aldana, please review. Thank you. ? Talk time ?15 minutes ? ? ? Extracted from:Title: cardiovascular tech- Sore Throat Author: RICARDO PATEL RN Date: 02/25/22 -Per [facility] Protocol 2020,?patient advised ?to present to [facility] today. Patient verbalized understanding and is agreeable [...] get after hours Urgent Care referral at [phone] ? ? Patient verbalized understanding and agreeable with plan of care.? GIANFRANCO Haider, please review. Thank you. ? Talk time?8? minutes ? ? ? Extracted from:Title: Virtual SHAD #3/MHA Author: MARU ALVARENGA NP Date: 04/16/21 1.?ASSESSMENT, POST DEPLOYMENT, DOCUMENTED ON UF7717 (PDHRA) ?Diagnosis: ?1. ?ASSESSMENT, POST DEPLOYMENT, DOCUMENTED ON [id number] (PDHRA) ?Comment:?Ordered:??Brief Comm Tech-Based Svc, Virt, Phys, Est Pt; 5-10 Min Med Dis G2012; 04/16/2021 11:26:00 PST ? Administration,Pt-[facility] [id number]; 04/16/2021 11:26:00 PST ? Virtual DRHA #3/MHA reviewed with SM by phone after confirming his identity by 2 patient identifiers. ? -?no post-deployment health issues or concerns identified -?SM does not endorse adjustment difficulties, sleep disturbance, depression, PTSD, alcohol/substance misuse, critical stressors, emotional problems or SI/HI -?his brief virtual MSE is WNL -?no further action is needed at this time ? Addendum by MARU ALVARENGA NP on April 16, 2021 14:27:27 PST POST DEPLOYMENT HEALTH RE-ASSESSMENT ([id number] DEC 2014) ? Last Name: NILDA Borden Name: [employer] 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 Recommended referal(s): ? ? Referral Time Comments: Virtual DRHA 3/MHA reviewed with SM by phone after confirming his identity by 2 patient identifiers. ? - no post-deployment health issues or concerns identified - does not endorse adjustment difficulties, sleep disturbance, depression, PTSD, alcohol/substance misuse, critical stressors, emotional problems or SI/HI - his brief virtual MSE is WNL - no further action is needed at this time ? Provider's Name: TANIKA ENGEL, CROP ROLLER Date: 1.? Address concerns identified on deployer [...] response:? Provider's comments: SM was seen by OP x 2 in Jan/Feb 2021 for increased anxiety [...] watchful or easily startled? No 13. d. [place] numb or detached from others, activities, or [...] like to schedule a visit with a manager of photography or a community support counselor?: No Extracted from:Title: Overdue SHAD #2 Author: MARU ALVARENGA NP Date: 01/09/21 1.?ASSESSMENT, POST-DEPLOYMENT, DOCUMENTED ON [id number] Overdue?SHAD #2 reviewed with in person.? No post-deployment health issues or concerns identified.? He is an at risk drinker (AUDIT-C Score 6; CAGE? questions negative), receptive to BRIEF intervention on alcohol reduction for health and career reasons.? He does not endorse depression, PTSD, critical stressors, emotional problems or SI/HI.? His brief MSE is WNL.? No further action is needed at this time. Ordered: Administration,Pt-[facility] [id number] ? Addendum by MARU ALVARENGA NP on January 09, 2021 14:24:02 PDT POST DEPLOYMENT HEALTH ASSESSMENT (PDHA) - [id number] DEC 2014 ? 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 None identified ? Provider Comments: SHAD 2 reviewed with in person.? No post-deployment [...] this time. ? Provider's Name: TANIKA ENGEL, CROP ROLLER Date: 1.? Address concerns identified on deployer [...] ? 8.? Self-reported history of prescription or [id number]-[id number] medications as described on deployer question 13. [...] watchful or easily startled? No 15. d. [place] numb or detached from others, activities, or [...] like to schedule a visit with a manager of photography or a community support counselor?: No Extracted from:Title: SHAD #1 Author: MARU ALVARENGA WHNP Date: 03/14/20 1.?ASSESSMENT, PRE-DEPLOYMENT, DOCUMENTED ON [id number] DRHA #1, most recent PHA (Jun 2019), [...] Maintenance, Route to [facility] [Not filled] Administration,Pt-[facility] [id number] ? Addendum by MARU ALVARENGA on March 14, 2020 09:06:11 PST PRE-DEPLOYMENT HEALTH ASSESSMENT ([id number] DEC 2014) ? 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 Medical assessment/disposition comments: ? ? Summary of provider's identified concerns needing referral:? None identified Provider's Name: TANIKA ENGEL, WEI Date: 1.? Address concerns identified on deployer [...] Significant findings related to ability to deploy: DRHA 1, most recent PHA (Jun 2019), JLV [...] watchful or easily startled? No 11. d. [place] numb or detached from others, activities, or [...] Information Make an appointment with your PCM or?BHOP?bridal consultant? Appointment?Line: [phone]? S Portal:?[email or web address] ?Contact the Health Promotion Office for additional information and resources Health Promotion Office:[phone] ? Local Resource Options 92ND??Medical?Group ?-??Primary Director Agency & Strategic Partnerships (PCM) -??Behavioral Health Optimization (BHOP) -??Health?Promotion Office ? Additional Resources ? -??UCANQUIT2 -???www.ycq2.org -??www.Smokefree.gov -??www.cdc.gov/tobacco -??www.SRHD.org ? ?? 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 ? ? ? 04/28/2024 [id number] [facility] Functional Status Combined list of recent functional and cognitive assessments recorded at Department of Defense and Veterans Affairs (VA).VA Functional [place] Measurement (FIM) Scale: 1 = Total Assistance (Subject = 0% +), 2 = Maximal Assistance (Subject = 25% +), 3 = Moderate Assistance (Subject = 50% +), 4 = Minimal Assistance (Subject = 75% +), 5 = Supervision, 6 = Modified [place] (Device), 7 = Complete [place] (Timely, Safely). Assessment Date/Time Source Assessment Type Assessment Skill Assessment Score Assessment Details No data available for this section
--- OUTSIDE RECORDS SUMMARY | 2024-04-28 13:23 | XMS_ITS | Referral Summary ---
Author Organization [facility] Address [address] [place] [address] Care Team Providers Care Geological Drafter Name Role Phone Josselin Castle MD Unavailable Abby Sanchez MD Primary Care Provider [phone] Source Comments [facility],non-owned Affiliates and Associated Physician Practices is amultiple site organization consisting of ambulatory clinics and hospital sitesin [place], [place], [place] and [place]. This disclosure is being madepursuant to the Care Everywhere program and may not contain all information available regarding this patient. Last updated 17.[facility] Allergies Active Allergy Reactions Criticality Noted Date [...] PM CDT Pulse 64 04/27/2014 9:44 AM NEUROSCIENCE DIRECTOR NA Temperature 37.3 ??C (99.2 ??F) 12/27/2017 11:15 AM C DT Respiratory Rate - - Oxygen Saturation - - Inhaled Oxygen Concentration - - Weight 90.3 kg (199 lb) 12/27/2017 11:15 AM CDT Height 177.2 cm (5' 9.75 ) 01/20/2016 2:50 PM CD T Body Mass Index - - Plan of Treatment Not on file Goals Goal Patient Goal Type Associated Problems Recent Progress Patient-Stated? Author Exercise 3X per week (30 min per time) Exercise On track( 018 11:15 AM CDT) Sussy Edmonds, MARTY Note: Caring for Your Overweight Child Get [...] Where can I go for more information? [place] [employer] ( ) www.aap.org HealthyChildren.org www.healthychildren.org U.S. Department of Health and Human Services www.hhs.gov Website and free downloadable linh for smartphones: http://www.Visible Path/ Use safety retraint in car Lifestyle On track( 018 11:15 AM CDT) Sussy Edmonds RN Care Teams Geological Drafter Relationship Specialty Start Date End Date Josselin Castle MD PCP - Pediatrics 01/30/09 Abby Sanchez MD PCP - General Pediatrics 01/03/14
--- OUTSIDE RECORDS SUMMARY | 2024-04-28 13:23 | XMS_ITS | Clinical Summary ---
Author Organization [facility] Address [address] [place] [address]. [place] [address] [place] [address] Care Team Providers Care Sustainment Logistics Analyst Name Role Phone Amari Dugan Primary Care Provider [phone] Allergies Active Allergy Reactions Criticality Noted Date Comments Amoxicillin Rash Low 06/17/2011 Medications Blood Pressure Monitoring (BLOOD PRESSURE MONITOR AUTOMAT) DeviceIndications :Hypertension, unspecified type 1 each by Does not apply route daily. 1 each 4 Active clindamycin (CLEOCIN T) 1 % gelIndications:Fo lliculitis Apply topically 2 (two) times daily. 30 g 1 4 Active losartan (COZAAR) 25 MG tabletIndications :Primary hypertension Take 1 tablet (25 mg total) by mouth daily. 90 tablet 1 4 Active sertraline (ZOLOFT) 25 MG tabletIndications :Anxiety Take 1 tablet (25 mg total) by mouth daily. 90 tablet 1 4 Active Active Problems Problem Noted Date Diagnosed Date BMI 30.0-30.9,adult 03/01/2023 Current nicotine use 03/01/2023 Chronic pain of both knees 03/01/2023 Chronic bilateral low back pain without sciatica 03/01/2023 Anxiety 10/22/2013 Primary hypertension 10/22/2013 Immunizations Name Administration Dates Next Due Dtap (Acel-Immune) 06/29/2005, 2,06/23/2000,04/20/2000,1999 Hepatitis B Pediatric 09/29/2000,01/18/2000,11/27 Hib (Prohibit) 06/30/2001,06/23/2000,04/20/2000 ,02/17/2000 Influenza (Generic) 01/06/2009 Influenza Adult (Generic) 12/24/2014 MMR (MMRII) 06/29/2005,12/24/2000 Meningococcal (Menactra) 01/20/2016,08/17/2011 Pneumococcal Vaccine 01/08/2002,12/24/2000,06/23,04/20/2000 Polio IPV (Ipol) 06/29/2005,03/25/2001, 1,02/17/2000 Tdap (Adacel) 11/10/2023 Tdap (Generic) 08/17/2011 Varicella (Varivax) 10/22/2013,03/25/2001 Family History Medical History Relation Comments Hypertension Father Leukemia Maternal Uncle Hypertension Mother Cancer Paternal Grandmother breast Diabetes Paternal Grandmother Relation Status Comments Brother 1 Alive Brother 2 Alive Father Alive Maternal Grandfather Alive Maternal Grandmother Alive Maternal Uncle Mother Alive Paternal Grandfather Paternal Grandmother Social History Tobacco Use Types Packs/Day Years Used Date Smoking Tobacco: Former Cigarettes 0.3 1 Smokeless Tobacco: Current Chew Tobacco Cessation:Ready to Q uit: No; Counseling Given: Yes Comments:Nicotine pouches Alcohol Use Standard Drinks/Week Comments Yes 13.3 (1 standard drink = 0.6 oz pure alcohol) PHQ-2 Answer Date Recorded Patient Health Questionnaire-2 Score 0 05/30/2023 Sex and Gender Information Value Date Recorded Sex Assigned at Not on file Legal Sex Male 6:01 PM CDT Gender Identity Not on file Sexual Orientation Not on file Last Filed Vital Signs Vital Sign Reading Time Taken Comments Blood Pressure 134/86 11/10/2023 3:15 PM CDT Pulse 75 11/10/2023 3:15 PM CDT Temperature 36.5 ??C (97.7 ??F) 11/10/2023 3:15 PM CD T Respiratory Rate 16 11/10/2023 3:15 PM CDT Oxygen Saturation 99% 11/10/2023 3:15 PM CDT Inhaled Oxygen Concentration - - Weight 99.6 kg (219 lb 9.6 oz) 11/10/2023 3:15 P M CDT Height 177.8 cm (5' 10 ) 11/10/2023 3:15 PM CDT Body Mass Index 31.51 11/10/2023 3:15 PM CDT Plan of Treatment Health Maintenance Due Date Last Done Comments Annual Physical 12/17/2002 HPV Vaccines (1 - Male 3-dose series) 12/17/2014 Hepatitis C 12/17/2017 COVID-19 Vaccine (1 - season) 2023 Influenza Adult (#1) 2023 12/24/2014, 01/07/20 09 PHQ-2 (Physician [place]) 03/28/2024 05/30/2023 PHQ-2 (Physician [place]) 05/29/2024 05/30/2023 DTaP, Tdap and Td Vaccines (8 - Td or Tdap) 11/09/2033 11/10/2023, 08/17/2011, 06/29/2005, Additional history exists Hepatitis B Vaccines Completed 09/29/2000, 01/18/2000, 1999 Pneumococcal Vaccine: Pediatrics (0 to 5 Years) and At-Risk Patients (6 to 64 Years) Aged Out 01/08/2002, 12/24/2000, 06/23/2000, Additional history exists No longer eligible based on patient's age to complete this topic Meningococcal Vaccine Completed 01/20/2016, 012 Meningococcal B Vaccine Aged Out No l onger eligible based on patient's age to complete this topic RSV Immunizations Under 20 Months Aged Out No longer eligible based on patient's age to complete this topic Insurance [facility] Care Teams Sustainment Logistics Analyst Relationship Specialty Start [place] [address] [place] [address] PCP - General Physician [facility] 05/23/23
--- OUTSIDE RECORDS SUMMARY | 2024-04-28 13:23 | XMS_ITS | Continuity of Care Document ---
Author Organization [facility] Address [address] [place] [address] Phone Care Team Providers Care Risk Control Field Representative Name Role Phone Veto Cruz MD Unavailable Unavailable Allergies, Adverse Reactions, Alerts Substance Reaction Status Criticality amoxicillin rash Active No Information Medications Medication Instructions Dosage Effective Dates (start - stop) Status Comments Nasonex 50 mcg/actuation [place] spray 1-2 spray by intranasal route every day in each nostril - Active Advance Directives Directive Yes / No Effective Date File Name No Information Encounters Encounter Description Practice Location Reason(s) For Visit Diagnoses Date Provider Providers Copied on Encounter [facility], [address], [place], [place], [id number], [place] tel:[phone] [facility] Allergic rhinitis due to other allergen Anthony Laws. [address], [id number], [place]. tel:[phone] Referring Provider: Josselin Castle, [address] [place] [address] [address], [place], [address]. tel:[phone] Family History Family Member Type Diagnosis Age At Onset Father Problem (finding) Allergies Payers Payer name Insurance type Covered constitution party ID Authoriza tion(s) [facility] [employer] ACCOUNTS CI [id number] [employer] SA O CI [id number] Social History Type Description Quantity Date Captured Comments Alcohol Use Details Unknown Caffeine Use Details Unknown Tobacco Use Status No Information Smoking Status No Information Sex Male Vital Signs Date / Time: Height Weight BMI Pulse Rate Blood Pressure Temperature Respiratory Rate Body Surface Area Head Circumference Head Circ. Percentile Wt./Richie. Percentile BMI percentile Pulse Ox Inhaled Ox 9:52 AM 63.00 in 150.00 lbs 26.5 7 kg/m eter (2) 97 Chief Complaint And Reason For Visit No Information Reason For Referral Reason For Referral No Information History Of Present Illness Encounter Date Complaint History Of Prese nt Illness No Information Functional Status Date Functional Assessmen t No Information Instructions Date Instruction Additional Infor mation No Information Assessments Type Assessment Date No Information Patient Care Teams Name Effective Dates (start - stop) Status Members No Information
--- OUTSIDE RECORDS SUMMARY | 2024-04-28 13:26 | XMS_ITS | Continuity of Care Document ---
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, [facility] Oral (given by mouth) Complet ed 04/13/2020 60.0 0128C-9 2ND MED GRP-ALYSIA RCHILD Colace 100 mg oral capsule 1 cap(s), Oral, BID, PRN constipa tion, # 100 cap(s), 1 total refill(s ), Maintena nce, Pharmacy : [facility] Oral (given by mouth) Ordered 100.0 0128C-9 2ND MED GRP-[facility]IA RCH[facility] diazePAM 10 mg auto injector 10 mg, IntraMus cular, As Directed , 10 mg, IntraMus cular, As Directed , Administ er autoinje ctor IM as directed by thedneise wilder, # 1 EA, 0 total refill(s ), Maintena nce, Route to [facility] IntraM uscula r (in a muscle ) Discont inued 01/09/2021 1.0 0128C-9 2ND MED GRP-[facility] RCH[facility] doxycycline hyclate 100 mg oral capsule 1 cap(s), Oral, BID, For treatmen t of suspecte d chlamydi a infectio n., X 7 days, # 14 cap(s), 0 total refill(s ), Acute, 10/01/22 2:44:00 PM CDT, Pharmacy : [facility] Oral (given by mouth) Discont inued [...] RN administ ration. Expedite ., Pharmacy : [facility] Discont inued 10/01/2022 6.0 0128C-9 2ND MED GRP-[facility]IA RCH[facility] levoFLOXaci n 500 mg oral tablet 1 tab(s), Oral, every 24 hr, X 10 days, # 10 tab(s), 0 total refill(s ), Acute, 10/11/22 2:45:00 PM CDT, Pharmacy : [facility] Oral (given by mouth) Complet ed 10/11/2022 10.0 0128C-9 2ND MED [facility] lidocaine 5% topical film 1 patch(es ), Topical, Daily, Leave on for up to 12 hours within a 24 hour period (12 hours on, 12 hours off), # 30 patch(es ), 3 total refill(s ), Maintena nce, Pharmacy : [facility] Topica l (on the skin) Discont inued 05/27/2022 30.0 0128C-9 2ND MED GRP-[facility] MiraLax oral powder for reconstitut ion See Instruct ions, Dissolve and drink 1 capful (17g) of powder in 4 to 8 ounces of liquid three times daily until complete bowel emptying occurs, then use as needed for constipa tion., # 510 g, 5 total refill(s ), Maintena ine, Pharmacy : [facility] Ordered 510.0 0128C-9 2ND MED GRP-ALYSIA [...] Acute, 10/08/22 1:19:00 PM CDT, Pharmacy : [facility] Oral (given by mouth) Complet ed 10/08/2022 14.0 0128C-9 2ND MED [facility] potassium iodide 130 mg oral tablet 1 tab(s), Oral, Daily, PRN while protecti on is needed, To take only at the discreti on of the theater commande r., X 14 days, # 14 tab(s), 0 total refill(s ), Acute, Route to [facility] Oral (given by mouth) Complet [...] total refill(s ), Maintena nce, Route to [facility] Discont inued 01/09/2021 42.0 0128C-9 [...] 0 [employer], [place] ([facility]) Immunizations Combined list of available immunizations from the Department of Defense and Veterans Affairs facilities. 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 Status Comments Source COVID Vaccine Pfizer 2020 NINONDALUSONG Shoul sharon, right (delt oid) [id number] PFIZER complet ed COVID Vaccine Pfizer 12/30/20 Given 0128C-9 2ND MED GRP-[facility] RCHILD influenza virus vaccine, inactivated 2020 BRIANPLARA Shoul sharon, left (delt oid) [id number] 141 [facility] complet ed influenza virus vaccine, inactivat ed 12/09/20 Given 0128C-9 2ND MED [facility] COVID Vaccine Pfizer 2020 BRIANPLARA Shoul sharon, right (delt oid) [id number] PFIZER complet ed COVID Vaccine Pfizer 12/09/20 Given 0128C-9 2ND MED [facility] typhoid vaccine, parenteral 2019 BRIANPLARA Shoul sharon, right (delt oid) [id number] sanofi pasteur complet ed typhoid vaccine, parentera l 03/14/20 Given 0128C-9 2ND MED [facility] anthrax vaccine 2019 BRIANPLARA Shoul sharon, left (delt oid) [id number] 24 [employer]. complet ed anthrax vaccine 03/14/20 Given 0128C-9 2ND MED GRP-[facility]CH[facility] influenza virus vaccine, inactivated 2019 KYLEMQUINN Shoul sharon, right (delt oid) [id number] 141 [place], [employer] complet ed influenza virus vaccine, inactivat ed 02/14/20 Given 0128C-9 2ND MED GRP-[facility] RCHILD human papillomaviru s vaccine 2019 JOELLENNATALYA Bettencourt sharon, left (delt oid) [id number] 165 Merck & Company Inc complet ed human papilloma virus vaccine 02/14/20 Given 0128C-9 2ND [facility] GRP-ALYSIA RCHILD human papillomaviru s vaccine 2019 SINDYYUMIKO [place] sharon, left (delt oid) [id number] 165 [employer]ck & Company Inc complet ed human papilloma virus vaccine 10/04/19 Given 0128C-9 2ND MED GRP-[facility]IA [facility]CH[facility] human papillomaviru s vaccine 2019 BRIANPLSHRUTHI Rut sharon, left (delt oid) [id number] 165 [employer]ck & Company Inc complet ed human papilloma virus vaccine 07/19/19 Given 0128C-9 2ND [facility] GRP-ALYSIA RCHILD hepatitis A-hepatitis B vaccine 2019 SHERITACONSTANTINO [place]court sharon, left (delt oid) [id number] GlaxoSmithKli ne complet ed hepatitis A-hepatit is B vaccine 07/19/19 Given 0128C-9 2ND [facility] GRP-ALYSIA RCHILD influenza, injectable, quadrivalent- pf 2018 [id number] 150 Seqirus complet ed influenza , injectabl e, quadrival ent-pf 01/22/19 Given 0128C-9 2ND [facility] GRP-ALYSIA RCHILD hepatitis A-hepatitis B vaccine 2018 [id number] 104 GlaxoSmithKli ne complet ed hepatitis A-hepatit is B vaccine 01/22/19 Given 0128C-9 2ND [facility] GRP-ALYSIA RCHILD hepatitis A-hepatitis B vaccine 2018 [id number] 104 GlaxoSmithKli ne complet ed hepatitis A-hepatit is B vaccine 12/06/18 Given 0128C-9 2ND [facility] GRP-ALYSIA RCHILD adenovirus vaccine, live 2018 [id number] 143 Teva Pharmaceutica ls complet ed adenoviru s vaccine, live 12/01/18 Given 0128C-9 2ND [facility] GRP-ALYSIA RCHILD tetanus, diphtheria, acellular pertu is 2018 [id number] 115 GlaxoSmithKli ne complet ed tetanus, diphtheri a, acellular pertussis 12/01/18 Given 0128C-9 2ND MED GRP-ALYSIA RCHILD meningococcal A,C,Y,W-135 (MCV4P) 2018 [id number] 114 sanofi pasteur complet ed meningoco ccal [...] MED GRP-ALYSIA RCHILD Urinalysi s UA Spec [place] 1.010 1.006 - 1.029 10/01 N 0128C-9 [...] Neg (09/17/22 2:04 PM) 09/17 N 0128C-[address] [place] [address] GRP-ALYSIA RCHILD Urinalysi s UA Mucous Neg (09/17/22 2:04 PM) 09/17 N 0128C-9 2ND MED GRP-ALYSIA RCHILD Urinalysi s UA Clarity Clear (09/17/22 2:04 PM) 09/17 N 0128C-[address] [place] [address] GRP-ALYSIA RCHILD Urinalysi s UA Appear Clear (09/17/22 2:04 PM) 09/17 N 0128C-[address] [place] [address] GRP-ALYSIA RCHILD Urinalysi s UA Bili Negative (09/17/22 2:04 PM) 09/17 N 0128C-[address] [place] [address] GRP-ALYSIA RCHILD Urinalysi s UA Blood Trace-Ly sed *ABN* (09/17/22 2:04 PM) 09/17 A 0128C-9 2ND [facility] GRP-ALYSIA RCHILD Urinalysi s UA Color Yellow (09/17/22 2:04 PM) 09/17 N 0128C-[address] [place] [address] GRP-ALYSIA RCHILD Urinalysi s UA Glucose Negative mg/dL 09/17 N 0128C-[address] [place] [address] GRP-ALYSIA RCHILD Urinalysi s UA Ketones 15 mg/dL 09/17 A 0128C-9 2ND [facility] GRP-ALYSIA RCHILD Urinalysi s UA Leuk Esterase Negative (09/17/22 2:04 PM) 09/17 N 0128C-9 2ND MED GRP-ALYSIA RCHILD Urinalysi s UA Nitrite Negative (09/17/22 2:04 PM) 09/17 N 0128C-[address] [place] [address] GRP-ALYSIA RCHILD Urinalysi s UA pH 7.0 4.6 - 8.0 09/17 N 0128C-9 2ND MED GRP-ALYSIA RCHILD Urinalysi s UA Protein Negative mg/dL 09/17 N 0128C-9 2ND MED GRP-ALYSIA RCHILD Urinalysi s UA Spec [place] 1.015 1.006 - 1.029 09/17 N 0128C-9 [...] Prevention' s HIV diagnostic algorithm. Refer to [facility] Lab Guide for additional information : [email or web address]. [email or web address]/ [email or web address] [email or web address]/la b_[email or web address] x Testing performed by Nova vasquez. Performed by: Epidemiolog y Laboratory Service [facility] Bldg [address] [place] [address], [place] [address] 0128C-9 2ND MED GRP-ALYSIA RCHILD Miscellan eous Sendouts Repository Sample.EPI RECEIVED 04/06 Result Comment: INTERPRETAT ION(S): Performed by: Epidemiolog y Laboratory Service [facility] [address] [place] [address], [place] [address] 0128C-9 2ND MED GRP-ALYSIA RCHILD Infectiou s [...] for this test is supported by the Information Writer of Health and Human Service s (HHS [...] g (12/08/20 10:46 AM) 12/08 N 0128C-9 [facility] MED GRP-ALYSIA RCHILD Miscellan eous Sendouts Repository Sample.EPI RECEIVED 12/08 Result Comment: INTERPRETAT ION(S): Performed by: Epidemiolog y Laboratory Service [facility] [address] [facility] [place] [address] 0128C-9 2ND MED GRP-ALYSIA RCHILD Molecular Infectiou [...] for this test is supported by the Information Writer of Health and Human Service s (HHS [...] Prevention' s HIV diagnostic algorithm. Refer to [facility] Lab Guide for additional information : [email or web address]/diamond [email or web address]/[email or web address]/Kane jerry/Pages/lab _guide.aspx Testing performed by Nova vasquez. Performed by: Epidemiolog y Laboratory Service [facility] [address] [place] [address] 127C-9 2ND MED GRP-ALYSIA RCHILD Miscellan eous Sendouts Repository Sample.EPI RECEIVED 03/14 Result Comment: INTERPRETAT ION(S): Performed by: Epidemiolog y Laboratory Service [facility]/IVONNE [facility] [address] [place] [address] [place] [address] 0128C-9 2ND [facility] GRP-ALYSIA RCMOLD Vital Signs Combined list of inpatient and [...] ADM Date DC Date Status Disposition Source [place] [address](Hea ring Conservat ion, BMT) OUTPATIENT [id number] KAMILLA PINO 12/05 Released w/o Limitations [facility] [place] [address](H earing Conserv ation, [place]MT) [place] [address]([facility]) OUTPATIENT [id number] Notes Entered by: MIL PARK 06 Dec 2018 1159 ------- ------- ------- ------- -- Strep Prophyl VIVIAN clayton FRANSHESCA C 12/06 Released w/o Limitations [facility] [place] [address]([facility] d) Theater Facility OUTPATIENT [id number] Theater Provider 08/08 Immediate Referral Theater Facilit y Theater Facility OUTPATIENT [id number] Theater Provider 08/08 Released w/o Limitations Theater Facilit y Theater Facility OUTPATIENT [id number] Theater Provider 08/27 Released w/o Limitations Theater Facilit y Theater Facility OUTPATIENT [id number] Theater Provider 09/30 Sick at Home/Quarter s Theater Facilit y Theater Facility OUTPATIENT [id number] Theater Provider 09/30 Released w/o Limitations Theater Facilit y Procedures Combined list of: 1) Procedures from Department of Veterans Affairs facilities [facility], not all [place] non-surgical procedures are included; 2) All procedures from the Department of Defense facilities. Procedure Procedure Type Code Date Perfomer Comments Sour e THERAPEUTIC, PROPHYLACTIC, OR DIAGNOSTIC INJECTION (SPECIFY SUBSTANCE OR DRUG); SUBCUTANEOUS OR INTRAMUSCULAR 9 [facility] PURE TONE AUDIOMETRY (THRESHOLD); AIR ONLY 9 [facility] Threshold Audiogram (Pure Tone) Threshold Audiogram (Pure Tone) [address] KAMILLA PINO [facility] Physician Supervised Injection Intramuscular Antibiotic Physician Supervised Injection Intramuscular Antibiotic [address]60 BOB PARK [facility] No data available for this section - [employer] ILD Social History Combined list of available smoking, tobacco, and other social history from Department of Defense and Veterans Affairs facilities. 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 [facility] Sexual Orientation - [place] MED [employer] Gender identity 127C-92N D [facility] [employer] Assessment and Plan Combined list of future [...] days,Instr:For treatment of suspected chlamydia infection., Pharmacy: [facility] [Not fille GC and Chlamydia Screen [...] 2 tab(s) Oral BID,x7 days,PRN:fever/mild pain, Pharmacy: [facility] [Not filled] A total of?approximately 45?minutes were spent related to this encounter on day of service including medical history and record review; ordering of medications, tests, and procedures; face to face time in communication and counseling with patient, family and/or caregivers; and documentation in the electronic health record and other records as applicable. ? //SIGNED// Stevie Fletcher MD, IMAN, [facility] Family Medicine Physician Senior Financial Consultant, [facility], [address] [place] [address] [employer], [place] [phone] ? Extracted from:Title: Office Clinic Note- Constipation [...] refill(s), Maintenance, 1 cap(s) Oral BID,PRN:constipation, Pharmacy: [facility] polyethylene glycol 3350(MiraLax oral powder for [...] labs, imaging, other diagnostic testing via the [facility] TurningArt Patient Portal. ? ? //SIGNED// Stevie Fletcher MD, IMAN, [employer] Family Medicine Physician Senior Financial Consultant, [facility], [address], [place] [phone] ? Extracted from:Title: SHPE/MHA Author: LEXUS HAIDER [...] PRN? 2.?Encounter for other general examination Reviewed [facility] MHA section and reviewed responses and new [...] DUTY RESTRICTIONS:? ?[X]? None, fully qualified in AFLA;?[ ]? A 469 has been created with [...] requiring IRILO or MEB, IAW MARIA GUADALUPE 48-751)?[ ]? Code 81 ; Discussed this with patient who indicated understanding ? DO NOT ARM NOTIFICATION: (Applicable to [employer], when a medication or medical condition could impair their ability to carry/use a weapon)? ?[X]? None;?[ ]? A Do Not Arm Notification was made via phone call to the [employer] ([phone]) and the Arming Use of Force (AUoF) module in [facility] was completed, and a duty restriction was issued via an AF form 469, with the statement Do Not Arm in the comments section Total time spent from by Provider on floor/phone time, record review, PE, and education and plan: ? 30min ? CAPT LEXUS HAIDER PA-C [facility] [address] [place], [place] ? 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 Patient scheduled with PCM [...] get after hours Urgent Care referral at [phone] ? Patient verbalized understanding and agreeable with [...] reviewed to include member s summary and zone maintenance technician's Record Review section of PHAQ which [...] accomplished. Follow up?PRN. ? Maru Alvarenga, CTR, PLUSH BRUSHER [address] [facility]? [employer], [place]?Diagnosis: ?1. ?Encounter for other general examination ?Comment:?Ordered:??Brief Comm Tech-Based Svc, Virt, Phys, Est Pt; 5-10 Min Med Dis G2012; 05/27/2022 07:30:00 PST ? Administration,Pt-Foc [facility] [id number]; 05/27/2022 07:30:00 PST ?Diagnosis: ?2. ?Exposure to environmental pollution, occupational ?Comment:?Ordered:??Brief Comm Tech-Based Svc, Virt, Phys, Est Pt; 5-10 Min Med Dis G2012; 05/27/2022 07:30:00 PST ? Administration,Pt-Foc [facility] [id number]; 05/27/2022 07:30:00 PST ?Diagnosis: ?3. 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 Administration,Pt-[facility] [address]; 05/27/2022 07:30:00 PST ? End of Orders ? ANNUAL PERIODIC HEALTH ASSESSMENT ? I. FUR REPAIRER INFORMATION AND DEMOGRAPHICS (SMI) 1. Last Name: NILDA 2. First Name: MAC 3. Middle Name: SANDOR 4. Assessment Date: 5. : 6. Age: 21 7. Gender: M 8. DoD ID Number: [id number] 9. Service Branch: [employer] 10. 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 Status: Active Duty 12. 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 Duty Station/Location: [place] 15. UIC: [id number] 16. Is this your first Periodic Health Assessment (PHA)?: N 17. Are you enrolled in a secure messaging system with your health care provider?:? U ? 18. Current contact information: Preferred Method: Email 1 DSN: Day Time Phone: [phone] Night Time Phone: Email 1: [email or web address] Email 2: Address: [address] City: [place] State: [place] Zip Code: [address] ? 19. Point of contact who can always reach you: Name: MSgt Conway Phone 1: [phone] Phone 2: EMAIL: [email or web address] Address: City: State: Zip Code: ? II. DEPLOYMENT INFORMATION (DEP) 1. [ 1 ] Total number of deployments in the PAST 5 YEARS 2. [ [place] ] Primary country of last deployment 3. [ ] Date departed theater 4. [ N ] Are you going to deploy within the NEXT 120 DAYS? ? III. OCCUPATIONAL INFORMATION (OCC) 1? [ [id number] ] What is your occupational code 2. [...] easily startled? 6. d. [ No ] [place] numb or detached from others, activities, or your surroundings? 6. e. [ Not answered ] [place] guilt or unable to stop blaming yourself [...] like to schedule a visit with a policy director, mental health care provider, or a community [...] 8. [ Tylenol ] What prescriptions or iraf-eem-nlwbjpt medications are you CURRENTLY taking for health [...] had a cholesterol check by a health health care legal assistant within the PAST 5 YEARS? 13.a. In [...] any health concerns? ? XI. SEPARATION AND MCC 1. [ Yes ] Are you planning to separate or retire within the next year from Active Duty or [place] Duty (activated for greater than 30 continuous days) OR do you intend to file a claim for disability compensation with the Veterans Benefits Administration? ? PART B. RECORD REVIEW AND RECOMMENDATIONS I. RECORD REVIEWER INFORMATION 1. Last Name: JESUS 2. First Name: NEO 3. Middle Name: 4. Service Branch: [employer] 5. Status: Active Duty 6. 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 EMAIL: .[facility] 8. Facility: [facility] 9. Unit: [address] [place] [address] 10. Address: [place] 11. State: [facility]. Zip Code: [address] 13. 14. Date Record Review: ? II. MEDICAL SCREENING 1. [ ] Date of service member's most recent PHA 2. [ 5 feet 10 inches? ?Date: ] service member's most recently documented height 3. [ 187 pounds? Date: ] service member's most recently documented weight 4. [ 128/86? Date: ] service member's most recently documented blood pressure reading 5. [ No ] Does the service member have a history of abnormal blood pressure since their last PHA? 6. [ Yes ] Does the service member have a laboratory test of sickle cell trait documented in their permanent medical record? 7. [ No Cholesterol Test Documented ] What is the date of the service member's most recently documented cholesterol test? 9. [ lidocaine topical? ]? List of service member's active medications listed in their permanent medical record 10. [ Yes: lidocaine topical tylenol ] Is there a discrepancy between the active medication record review and the service member's self-reported list of medications? 11. [ hematuria feb 2022 ] List documented significant care the service member has received since their last PHA from a provider OUTSIDE the Health System 12. [ Yes: hematuria feb 2022 ] Is there a discrepancy between the service member's list of OUTSIDE care (from OTH5), and the OUTSIDE care found in the record? 13. [ urethral spasm mar 2022 ] List documented significant care the service member has received since their last PHA from a provider INSIDE the Health System 15. [ Not Answered ] Confirm that vaccine exemptions are listed in the medical record for each vaccine listed 16. [ No Discrepancies Noted ] Review available medical documentation of allergies and compare with service member responses. Document any discrepancies ? III. OCCUPATION-SPECIFIC EXAMINATIONS 2. [ ] When was the service member's most recently documented evaluation? ? IV. FAMILY HISTORY AND LIFESTYLE 1. [ Yes ]? Does the [id number] reflect the service member's reported family history? ? . DEPLOYMENT-RELATED HEALTH ASSESSMENTS 1. [ Yes ] Based on your check of records, does the service member have any due or overdue deployment health assessments which need to be completed with this PHA? ? VII. INDIVIDUAL MEDICAL READINESS 1. [ No ] Does the service member have an Assignment Limitation Code C? 3. [ Classification: 1 ] Most recently documented dental exam 4. [ Yes ] Is the service member current on all required immunizations in the immunization tracking system? 6. Does the service member have the following laboratory tests documented [...] need to be forwarded to the Health Wax Coating Machine Tender completing PART C: ? ? Date Record Review Completed: PART C. HEALTH CARE PROVIDER I. MENTAL HEALTH ASSESSMENT (MHA) PROVIDER INFORMATION 1. Last Name: HERMELINDO 2. First Name: MARU 3. Middle Name: Mar 31. Service Branch: [employer] 5. 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 Title: Nurse Practitioner (PLUSH BRUSHER) 7. EMAIL: [email or web address] 8. Facility: [address] [place] [address] 9. Unit: [facility] 10. Address: [address] [place] [address] 11. State: [place] 12. Zip Code: [address] 13. Phone: [phone] 14. Date HCP Review initiated: ? 1.? [...] 3. Middle Name: Mar 31. Service Branch: [employer] 5. 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 Title: Nurse Practitioner (PLUSH BRUSHER) 7. EMAIL: 8. Facility: MEDICAL 9. Unit: [facility] 10. Address: [address] [place] [address] [employer] 11. State: [place] 12. Zip Code: [address] 13. Phone: [phone] 14. Date HCP Review initiated: ? IV. PERIODIC HEALTH ASSESSMENT PROVIDER RECOMMENDATIONS and REFERRALS 1. Provider concerns with this assessment: No issues or concerns identified ? V. SUMMARY AND COMMENTS 1. Additional information summarizing findings during the service member assessment: ? 2. Provider Comments: ? ? . INDIVIDUAL MEDICAL READINESS DISPOSITION DETERMINATION ? ? JAYDEN: Ready? ? DEN: Ready? ? IMM: Ready? ? LAB: Ready? ? ME: Ready ? ? IMR Status: Fully Medically Ready ? VII. SERVICE MEDICAL DEPLOYABILITY EVALUATION INDICATED Based on your review of all documentation, is the service member medically deployable without limitations?? Reference [facility] 6490.07 ? ?Yes (service member DOES NOT currently have a medical condition that limits deployability) ? Date PHA Completed: ? END OF [id number] REPORT ? [facility] Review Summary ? [ No ] Does [...] conditions that dictate a referral to the [facility]? ? Active Medical Conditions:? None. ? 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 END OF [facility] SUMMARY 2.?Exposure to environmental pollution, occupational reported?hx of?exposure?to burn pits during deployment(s) to:? [place] and [place] 2020 ? -?does not endorse cardiopulmonary symptoms -?instructed to register on the [place] s Airborne Hazards and Open Burn Pit Registry for tracking and receipt of updated health information -?download copy of intake questionnaire and bring to [facility] office for uploading into EHR ? [...] Acute, 2 tab(s) Oral QID,x7 days, Pharmacy: [facility] [Last filled 04/02/22] ? 3.?[place] of [...] further questions were asked. -I spent? 10-19?min. hwun-fq-diqv w/ pt. , greater than 50% in counseling/coordination of care. -No new DR/MR/FR/AUoF restriction. Not on flying status or PRP. Follow up?PRN. -Portions of this note were scribed by my medical associate(s). I have verified the information and medical [...] ALDANA PA-C, Capt , [employer], BS Physician Benefits Clerk? Extracted from:Title: cartridge loader- Abdominal Pain and Back Pain Author: RICARDO PATEL RN Date: 03/16/22 -Per [facility] Protocol 2020,?patient advised ?to present to Urgent Care. Patient verbalized understanding and is agreeable to plan. Patient states they will go to?[facility] [address] -Red flags signs and symptoms [...] get after hours Urgent Care referral at [phone] ? ? Patient verbalized understanding and agreeable with plan of care.? GIANFRANCO Aldana, please review. Thank you. ? Talk time ?15 minutes ? ? ? Extracted from:Title: cartridge loader- Sore Throat Author: RICARDO PATEL RN Date: 02/25/22 -Per [facility] Protocol 2020,?patient advised ?to present to [facility] today. Patient verbalized understanding and is agreeable [...] get after hours Urgent Care referral at [phone] ? ? Patient verbalized understanding and agreeable with plan of care.? GIANFRANCO Haider, please review. Thank you. ? Talk time?8? minutes ? ? ? Extracted from:Title: Virtual SHAD #3/MHA Author: MARU ALVARENGA NP Date: 04/16/21 1.?ASSESSMENT, POST DEPLOYMENT, DOCUMENTED ON ON6098 (PDHRA) ?Diagnosis: ?1. ?ASSESSMENT, POST DEPLOYMENT, DOCUMENTED ON IU4139 (PDHRA) ?Comment:?Ordered:??Brief Comm Tech-Based Svc, Virt, Phys, Est Pt; 5-10 Min Med Dis G2012; 04/16/2021 11:26:00 PST ? Administration[place] [place] [id number]; 04/16/2021 11:26:00 PST ? Virtual DRHA #3/MHA [...] 2021 14:27:27 PST POST DEPLOYMENT HEALTH RE-ASSESSMENT ([id number] DEC 2014) ? Last Name: NILDA Borden Name: MAC OOHLALA Mobile Security Number: [id number] Date of : Gender: Male Service Branch: [...] this time ? Provider's Name: TANIKA ENGEL, FLOW MANAGER Date: 1.? Address concerns identified on deployer [...] watchful or easily startled? No 13. d. [place] numb or detached from others, activities, or [...] like to schedule a visit with a policy director or a community support counselor?: No Extracted from:Title: Overdue SHAD #2 Author: MARU ALVARENGA NP Date: 01/09/21 1.?ASSESSMENT, POST-DEPLOYMENT, DOCUMENTED ON LR6249 Overdue?SHAD #2 reviewed with in person.? No post-deployment health issues or concerns identified.? He is an at risk drinker (AUDIT-C Score 6; CAGE? questions negative), receptive to BRIEF intervention on alcohol reduction for health and career reasons.? He does not endorse depression, PTSD, critical stressors, emotional problems or SI/HI.? His brief MSE is WNL.? No further action is needed at this time. Ordered: Administration[place] [id number] ? Addendum by MARU ALVARENGA NP on January 09, 2021 14:24:02 PDT POST DEPLOYMENT HEALTH ASSESSMENT (PDHA) - [id number] DEC 2014 ? Last Name: NILDA First Name: MAC Social Security Number: [id number] Date of : Gender: Male Service Branch: [...] this time. ? Provider's Name: TANIKA ENGEL, FLOW MANAGER Date: 1.? Address concerns identified on deployer [...] ? 8.? Self-reported history of prescription or ekot-cne-qmrxslt medications as described on deployer question 13. [...] watchful or easily startled? No 15. d. [place] numb or detached from others, activities, or [...] like to schedule a visit with a policy director or a community support counselor?: No Extracted from:Title: SHAD #1 Author: MARU ALVARENGA WHNP Date: 03/14/20 1.?ASSESSMENT, PRE-DEPLOYMENT, DOCUMENTED ON [id number] DRHA #1, most recent PHA (Jun 2019), [...] [facility] [Not filled] Administration,Pt-[facility] [id number] ? Addendum by MAUR ALVARENGA on March 14, 2020 09:06:11 PST PRE-DEPLOYMENT HEALTH ASSESSMENT ([id number] DEC 2014) ? 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 No 11. d. [place] numb or detached from others, activities, or [...] Information Make an appointment with your PCM or?BHOP?operational risk consultant? Appointment?Line: [phone]? S Portal:?[email or web address] ?Contact the Health Promotion Office for additional information and resources Health Promotion Office:[phone] ? Local Resource Options 92[employer]??Medical?Group ?-??Primary Advertising Sales Executive (PCM) -??Behavioral Health Optimization (BHOP) -??Health?Promotion Office ? Additional Resources ? -??UCANQUIT2 -???www.ycq2.org -??www.Smokefree.gov -??www.cdc.gov/tobacco -??www.SRHD.org ? ?? 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 ? ? ? 04/28/2024 [id number] [facility] Functional Status Combined list of recent functional and cognitive assessments recorded at Department of Defense and Veterans Affairs (VA).VA Functional Simpson Measurement (FIM) Scale: 1 = Total Assistance (Subject = 0% +), 2 = Maximal Assistance (Subject = 25% +), 3 = Moderate Assistance (Subject = 50% +), 4 = Minimal Assistance (Subject = 75% +), 5 = Supervision, 6 = Modified Simpson (Device), 7 = Complete Simpson (Timely, Safely). Assessment Date/Time Source Assessment Type Assessment Skill Assessment Score Assessment Details No data available for this section
--- OUTSIDE RECORDS SUMMARY | 2024-04-28 13:26 | XMS_ITS ---
Author Organization Unknown Medications Medication Instructions Effective Dates (start - stop) Status ketoconazole 20 MG/ML Topica l Cream - Completed losartan potassium 25 MG Ora l Tablet - Completed sertraline 25 MG Oral Tablet [id number] 0:00:00Z - Completed clindamycin 0.01 MG/MG Topic al Gel - Completed doxycycline hyclate 100 MG O ral Capsule - Completed losartan potassium 25 MG Ora l Tablet - Completed Patient Care team information Name Category Status Period Participants - - Proposed period not known -
[2024-04-28 13:31] VITALS: BP 148/75; PULSE 98; RESP 18; TEMP 36.6; O2SAT 98
--- NOTE | 2024-04-28 13:39 | ED_ITS ---
HPI - General Adult General Chief complaint: Upper Respiratory Infection Stated complaint: cough/sore throat/ SOB Time Seen by Provider: 04/28/24 13:40 Source: patient Mode of arrival: ambulatory Limitations: no limitations History of Present Illness HPI narrative: 23-year-old male patient presents to the [facility] with complaints of cold and flu symptoms that started yesterday. Patient states he did have a fever, low-grade yesterday. Patient states he has had a cough chest pain and shortness of breath at times and congestion. Patient does actively vape. Denies taking any ecwy-hjp-iokyser cold and flu medication for symptoms. Related Data Home Medications ?Medication ?Instructions ?Recorded ?Confirmed ?Last Taken ?Type losartan 25 mg tablet mg 03/26/24 Unknown History sertraline 25 mg tablet mg 03/26/24 Unknown History Allergies Allergy/AdvReac Type Severity Reaction Status Date / Time amoxicillin Allergy Intermediate Hives Verified 04/28/24 13:41 Review of Systems Review of Systems: CONSTITUTIONAL: Positive fever, denies chills, or sweats. EYES: Denies visual changes, redness, or discharge. ENT: positive rhinorrhea, congestion, sore throat, denies otalgia. CARDIOVASCULAR: positive chest pain with coughing, denies palpitations, or edema. RESPIRATORY: positive cough or dyspnea. GASTROINTESTINAL: Denies abdominal pain, nausea, vomiting, or diarrhea. GENITOURINARY: Denies dysuria or hematuria. SKIN: Denies rash or itching. MUSCULOSKELETAL: Denies back pain, joint pain, or myalgia. NEUROLOGIC: Denies headache, numbness, or weakness. PSYCHIATRIC: Denies anxiety or depression. Exam Narrative: GENERAL: Well-appearing, well-nourished, and in no acute distress. HEAD: Normocephalic, atraumatic. EYES: PERRLA and EOMI. ENT: With erythema edema noted bilaterally clear, no rhinorrhea or epistaxis. Mucous membranes moist. posterior pharynx no erythema, tonsillar enlargement, exudates or lesions present. Bilateral TMs are clear no erythema or foreign bodies the canal. NECK: Supple. No lymphadenopathy CHEST: Clear to auscultation. No respiratory distress. HEART: Regular rate and rhythm. No murmur heard. Normal peripheral pulses. ABDOMEN: Soft, nontender, nondistended, normal active bowel sounds. EXTREMITIES: Normal range of motion. No edema. SKIN: Warm, dry, no rash. NEURO: No focal deficits. Alert and oriented x3. Course Course Level of Care: Express Care Visit Vital Signs Vital signs: Vital Signs Temperature 36.6 C 04/28/24 13:31 Pulse Rate 98 04/28/24 13:31 Respiratory Rate 18 04/28/24 13:31 Blood Pressure 148/75 H 04/28/24 13:31 Pulse Oximetry 98 04/28/24 13:31 Oxygen Delivery Room Air 04/28/24 13:31 Temperature 36.6 C 04/28/24 13:31 Pulse Rate 98 04/28/24 13:31 Respiratory Rate 18 04/28/24 13:31 Blood Pressure 148/75 H 04/28/24 13:31 Pulse Oximetry 98 04/28/24 13:31 Oxygen Delivery Room Air 04/28/24 13:31 Vital signs reviewed. The patient has been informed that they may have pre-hypertension or Hypertension based on a BP reading in the department. I recommend that the patient call the primary care provider listed on their discharge instructions or a physician of their choice this week to arrange follow up for further evaluation of possible pre-hypertension or Hypertension Medical Decision Making MDM Narrative Medical decision making narrative: discussed with patient he has tested positive for COVID. Discussed with patient that he needs to take cqgc-wic-mbqnofn medications to help with the symptoms, increase rest and fluids, and he needs to stay home away from others until fever free and symptom free for 24 hours as per CDC guidelines. Patient verbalized understanding denies any other questions or concerns at this time. Differential Diagnosis Differential Diagnosis: Differential diagnosis: Allergic rhinitis, chronic sinusitis, tonsillitis, acute sinusitis, infectious mononucleosis, seasonal influenza, pertussis, diphtheria, meningococcal disease, viral syndrome, viral bronchitis, RSV, COVID- 19 Vital Signs Vital Signs: Vital Signs Temperature 36.6 C 04/28/24 13:31 Pulse Rate 98 04/28/24 13:31 Respiratory Rate 18 04/28/24 13:31 Blood Pressure 148/75 H 04/28/24 13:31 Pulse Oximetry 98 04/28/24 13:31 Oxygen Delivery Room Air 04/28/24 13:31 Temperature 36.6 C 04/28/24 13:31 Pulse Rate 98 04/28/24 13:31 Respiratory Rate 18 02/01/25 13:31 Blood Pressure 148/75 H 04/28/24 13:31 Pulse Oximetry 98 04/28/24 13:31 Oxygen Delivery Room Air 04/28/24 13:31 Lab Data Labs: Lab Results 04/28/24 Range/Units 13:56 POC Grp A Strep Screen Negative (Negative) Critical Care Time Critical Care Time Critical Care Time: No Discharge Plan Discharge Clinical Impression: COVID-19 Patient Disposition: Home, Self-Care Condition: Stable Instructions: Antibiotic Form, COVID-19 and Children (ED) Additional Instructions: COVID-19 is a contagious respiratory illness caused by a virus that spreads from person to person. The virus is transmitted through respiratory droplets from coughing, sneezing, talking or laughing. Droplets not blocked by masks can travel up to 6 feet. Masks are meant to decrease the chance of you spreading the virus to others. COVID-19 is usually a self-limited illness with most people experiencing mild to moderate respiratory illness and recovery without requiring special treatment. While most patients have mild to moderate symptoms, some can develop serious illness that requires hospitalization. This may develop after a week of illness. INSTRUCTIONS Personal Care Rest Drink plenty of fluids (non-alcoholic) Acetaminophen (Tylenol?) 650 mg every 6 hours and/or Ibuprofen (Advil?) 600 mg every 6-8 hours as needed to reduce fever, aches or other pains Treat any bothersome symptoms with lfcj-yup-yfgrvbx medication Limit the spread to others Isolate yourself as completely as possible. Visit the Stop the Spread General COVID FAQs for additional information. When to seek further evaluation: Feeling short of breath or having trouble breathing Persistent pain or pressure in the chest New confusion or inability to become fully awake Bluish lips or face Symptoms last over 10 days and get worse instead of better Patient Language: Lithuanian Prescriptions: No Action losartan 25 mg tablet sertraline 25 mg tablet Follow-up/Referrals: Fredrick,Stacey Acuna APRN [Primary Care Provider] - Stand Alone Forms: Work/School Release IP Time of Disposition: 14:05
[2024-04-28 13:58] LABS: EDSTREPNEGPOS1 Negative (Negative)
[2024-04-28 14:04] LABS: EDCOVIDSCREEN Positive (Negative)
[2024-04-28 14:05] LABS: EDINFLUASCREEN Negative (Negative); EDINFLUBSCREEN Negative (Negative)
== END 2024-04-28 14:10 | disposition home or self-care (01) ==
PROVIDERS: Emergency Provider Nurse Practitioner Family; PCP Nurse Practitioner Family
DX: U07.1 COVID-19 (principal); F17.290 Nicotine dependence, other tobacco product, uncomplicated
CPT/HCPCS: 87081; 87426; 87804; 87880; 99213; G0463